=== PATIENT | male | born 1990 | race African-American/Black ===

== ENCOUNTER 2016-06-02 00:20 | Inpatient (IN) ==
[2016-06-02] MEDS ORDERED: 0.9 % Sodium Chloride 1,000 ML IVC ONE ×3 (01:12→07:26)
[2016-06-02] MEDS ORDERED: *HR* HYDROmorphone (PF) 1 MG/ML SYRINGE IVP ONE ×2 (01:12→20:37)
[2016-06-02] MEDS ORDERED: Ondansetron 4 MG/2 ML VIAL IVP ONE ×3 (01:12→06:18)
[2016-06-02] MEDS ORDERED: Ketorolac 30 MG/ML VIAL IVP ONE (01:12)
--- NOTE | 2016-06-02 01:17 | Emergency Department Note ---
Disposition Clinical Impression: Intractable nausea and vomiting Qualifiers: Vomiting type: unspecified Qualified Code(s): R11.2 - Nausea with vomiting, unspecified Abdominal pain Qualifiers: Abdominal location: left lower quadrant Qualified Code(s): R10.32 - Left lower quadrant pain Disposition: Still a Patient Condition: Fair Referrals: NO,PCP [Primary Care Provider] - Forms: Work/School Release, ED Satisfaction Letter Time of Disposition: 07:04 Abdominal Pain HPI - General Chief Complaint: ED Abdominal Pain Stated Complaint: Abdominal Pain Time Seen by Provider: 06/02/16 01:08 Source: patient, EMS Mode of arrival: ambulatory Limitations: no limitations Nursing Notes Reviewed: Yes Vital Signs Reviewed: Yes - History of Present Illness HPI Narrative: Patient is a 25-year-old male who presents to [facility] ED with a chief complaint of left lower quadrant abdominal pain that radiates into his back. Onset was 2 days ago. Has had nausea, vomiting, chills. States he has difficulty with urinating. Denies any prior history of kidney stones. No other medical problems. Denies any chest pain, difficulty breathing. Pt Subjective Complaint: abdominal pain, flank pain Onset (ago): day(s) Consistency: constant Location: LUQ, L flank Pain Severity: severe Pain Scale: 10 Quality: stabbing, sharp Radiation: none Migration to: no migration Improves with: nothing Worsens with: nothing Associated symptoms: Reports: nausea, vomiting, chills. Denies: fever Treatments prior to arrival: none - Related Data Home Medications Medication Instructions Recorded Confirmed Aspirin 325 mg PO DAILY PRN 06/02/16 06/02/16 Allergies Allergy/AdvReac Type Severity Reaction Status Date / Time latex Allergy Anaphylaxis Verified 06/02/16 06:36 Penicillins [PCN] Allergy See Verified 06/02/16 06:36 Comments All systems ED: reviewed and negative except as stated. Abdominal Pain PMH - Past Medical History Medical history: Reports: CHF, CVA, myocardial infarction, renal disease, TIA Male Surgical History: Reports: other Psychiatric history: Reports: anxiety, bipolar, depression, schizophrenia - Social History Smoking status: Current every day smoker Alcohol use: Reports: occasionally Drug use: Reports: marijuana Physical Exam - General Limitations: no limitations General appearance: alert - Head Head exam: atraumatic, normocephalic, normal inspection - Eye Eye exam: Present: normal appearance, PERRL, EOMI - ENT ENT exam: normal exam, normal oropharynx, mucous membranes moist - Neck Neck exam: Present: normal inspection, full ROM, trachea midline - Chest Chest inspection: Present: normal inspection, symmetric chest wall rise - Respiratory Respiratory exam: Present: normal lung sounds bilaterally - Cardiovascular Cardiovascular exam: Present: normal rhythm, tachycardia - Abdominal Exam Abdominal exam: Present: soft, tenderness, normal bowel sounds Abdominal tenderness: Present: LLQ, diffuse, severe - Extremities Exam Extremities exam: Present: normal inspection, full ROM. Absent: tenderness, pedal edema - Back Exam Back exam: Present: CVA tenderness (L) - Neurological Exam Neurological exam: Present: alert - Psychiatric Psychiatric exam: Present: normal affect, normal mood - Skin Skin exam: Present: warm, dry, intact, normal color Course Course Narrative: Patient seen and examined. Left-sided abdominal pain that radiates into the flank. Suspect possible kidney stone. Labs, CT abdomen and pelvis ordered. IV placed for 1 L fluids and IV Toradol for pain, Zofran for nausea. - Reevaluation(s) Reevaluation #1: Patient has repeatedly required multiple doses of nausea medication. We have tried Zofran, Reglan, Phenergan. I have now also ordered a second dose of Zofran. Patient still has been dry heaving. His lab work shows that he is dehydrated. Patient has received 2 L boluses of fluids. I believe patient likely has a viral illness. Due to his persistent nausea with vomiting, will admit to hospitalist service for intractable nausea and vomiting. Time: 05:59 Reevaluation #2: Still awaiting hospitalist to call back. Patient will be signed out to the day team for admission for dehydration, intractable nausea with vomiting. Time: 06:53 Vital Signs Temperature 98.6 F 06/02/16 00:23 Pulse Rate 85 06/02/16 00:23 Respiratory Rate 20 06/02/16 00:23 Blood Pressure 129/107 06/02/16 00:23 O2 Sat by Pulse Oximetry 100 06/02/16 00:23 Temperature 98.6 F 06/02/16 00:23 Pulse Rate 104 06/02/16 05:50 Respiratory Rate 16 06/02/16 05:50 Blood Pressure 122/77 06/02/16 05:50 O2 Sat by Pulse Oximetry 100 06/02/16 05:50 Oxygen Delivery Oxygen Delivery Room Air Abdominal Pain - Medical Records Medical records reviewed: Yes I reviewed the patient's medical records. - Lab Data Lab results reviewed: Yes I reviewed the patient's lab results. Result diagrams: 06/02/16 01:50 06/02/16 01:50 Lab Results 06/02/16 06/02/16 06/02/16 Range/Units 01:50 01:50 02:46 WBC 12.8 H (4.3-11.1) K/mcL RBC 4.81 (4.19-5.50) M/mcL Hgb 13.7 (12.9-16.9) g/dL Hct 40.9 (37.5-50.1) % MCV 85.0 (83.0-100.0) fL MCH 28.5 (28.0-33.3) pg MCHC 33.5 (31.6-35.5) g/dL RDW 12.2 (11.5-14.5) % Plt Count 337 (140-400) K/mcL MPV 9.5 (9.4-12.4) fL Immature Gran % 0.3 (0-4) % Seg Neutrophils % 79.6 % Lymphocytes % 14.4 % Monocytes % 5.1 % Eosinophils % 0.3 % Basophils % 0.3 % Neutrophils # 10.2 H (1.6-8.9) K/mcL Lymphocytes # 1.8 (0.6-4.6) K/mcL Monocytes # 0.7 (0.0-1.3) K/mcL Eosinophils # 0.0 (0.0-0.6) K/mcL Basophils # 0.0 (0.0-0.2) K/mcL Sodium 138 (136-145) mEq/L Potassium 3.9 (3.5-4.5) mEq/L Chloride 105 (98-109) mEq/L Carbon Dioxide 17 L (19-29) mEq/L BUN 11 (8-26) mg/dL Creatinine 1.57 H (0.72-1.25) mg/dL Est GFR ( Amer) > 60 (> 60) Est GFR (Non-Af Amer) 54 L (> 60) BUN/Creatinine Ratio 7 (6-26) Glucose 133 H (70-99) mg/dL Calculated Osmolality 287 (280-300) Lactic Acid 1.9 (0.5-2.2) mmol/L Calcium 10.0 (8.6-10.8) mg/dL Total Bilirubin 2.1 H (0.2-1.2) mg/dL Direct Bilirubin 0.6 H (0.0-0.5) mg/dL Indirect Bilirubin 1.5 H (0.0-1.2) mg/dL AST 29 (5-34) Units/L ALT 20 (0-55) Units/L Alkaline Phosphatase 94 (38-126) Units/L Serum Total Protein 7.8 (6.0-8.3) g/dL Albumin 4.8 (3.5-5.0) g/dL Globulin 3.0 (2.4-3.5) g/dL Albumin/Globulin Ratio 1.6 (1.1-2.2) Lipase 14 (8-78) Units/L Urine Color (Yellow) Urine Clarity (Clear) Urine pH (5.0-8.0) pH Units Ur Specific [place] (1.010-1.025) Urine Protein (Neg-Trace) mg/dL Urine Glucose (UA) (Normal) mg/dL Urine Ketones (Negative) mg/dL Urine Blood (Negative) Urine Nitrite (Negative) Urine Bilirubin (Negative) Urine Urobilinogen (Normal) mg/dL Ur Leukocyte Esterase (Negative) Urine Microscopic RBC (0-3) per hpf Urine Microscopic WBC (0-3) per hpf Ur Squamous Epith Cells (None-Few) per lpf Urine Bacteria (None-Few) per hpf Hyaline Casts (None-Few) per lpf Ur Culture Indicated? (NO) 06/02/16 Range/Units 03:35 WBC (4.3-11.1) K/mcL RBC (4.19-5.50) M/mcL Hgb (12.9-16.9) g/dL Hct (37.5-50.1) % MCV (83.0-100.0) fL MCH (28.0-33.3) pg MCHC (31.6-35.5) g/dL RDW (11.5-14.5) % Plt Count (140-400) K/mcL MPV (9.4-12.4) fL Immature Gran % (0-4) % Seg Neutrophils % % Lymphocytes % % Monocytes % % Eosinophils % % Basophils % % Neutrophils # (1.6-8.9) K/mcL Lymphocytes # (0.6-4.6) K/mcL Monocytes # (0.0-1.3) K/mcL Eosinophils # (0.0-0.6) K/mcL Basophils # (0.0-0.2) K/mcL Sodium (136-145) mEq/L Potassium (3.5-4.5) mEq/L Chloride (98-109) mEq/L Carbon Dioxide (19-29) mEq/L BUN (8-26) mg/dL Creatinine (0.72-1.25) mg/dL Est GFR ( Amer) (> 60) Est GFR (Non-Af Amer) (> 60) BUN/Creatinine Ratio (6-26) Glucose (70-99) mg/dL Calculated Osmolality (280-300) Lactic Acid (0.5-2.2) mmol/L Calcium (8.6-10.8) mg/dL Total Bilirubin (0.2-1.2) mg/dL Direct Bilirubin (0.0-0.5) mg/dL Indirect Bilirubin (0.0-1.2) mg/dL AST (5-34) Units/L ALT (0-55) Units/L Alkaline Phosphatase (38-126) Units/L Serum Total Protein (6.0-8.3) g/dL Albumin (3.5-5.0) g/dL Globulin (2.4-3.5) g/dL Albumin/Globulin Ratio (1.1-2.2) Lipase (8-78) Units/L Urine Color Yellow (Yellow) Urine Clarity Cloudy A (Clear) Urine pH 8.0 (5.0-8.0) pH Units Ur Specific [place] 1.023 (1.010-1.025) Urine Protein Trace (Neg-Trace) mg/dL Urine Glucose (UA) Normal (Normal) mg/dL Urine Ketones 80 H (Negative) mg/dL Urine Blood Negative (Negative) Urine Nitrite Negative (Negative) Urine Bilirubin Negative (Negative) Urine Urobilinogen Normal (Normal) mg/dL Ur Leukocyte Esterase Moderate H (Negative) Urine Microscopic RBC 0-3 (0-3) per hpf Urine Microscopic WBC 30-50 H (0-3) per hpf Ur Squamous Epith Cells Many H (None-Few) per lpf Urine Bacteria None Seen (None-Few) per hpf Hyaline Casts None Seen (None-Few) per lpf Ur Culture Indicated? YES A (NO) - Radiology Data Radiology results reviewed: Yes I reviewed the patient's radiology results. Abdomen/Pelvis CT 06/02/16 01:12 IMPRESSION: 1. No acute intra-abdominal abnormality. 2. No acute intrapelvic abnormality. 3. No urinary tract calcifications seen. D/ / Owen Gordon MD / Owen Gordon MD Interpreting Provider: Owen Gordon MD - EKG Data EKG attestation: Yes I reviewed and interpreted this EKG. EKG results narrative: EKG done at 00 42 shows normal sinus rhythm with a rate of [address] elevation or depression. Normal axis. No prior EKG for comparison. Attestation Statement - Attestation Attestation: I, Luis Antonio Adams MD, personally performed a history and physical exam of the patient and discussed their management with the resident. I reviewed the resident's note and agree with the documented findings, medical decision making , and plan of care. 25-year-old male presents to the emergency department with a complaint of left lower abdominal pain and left flank pain for 2 days prior to arrival. Pain became acutely more severe this evening. Presents with nausea and vomiting. No fever. No hematuria or dysuria. No history kidney stones. On examination patient is a well-developed well-nourished well-appearing black male in no acute distress but appears to be in moderate discomfort. He is alert and oriented 3. No diaphoresis. Breath sounds are clear and equal bilaterally. Heart regular rate and rhythm. Bowel sounds are normal but otherwise unable to examine abdomen. When I attempted to examine patient's abdomen he kept grabbing my hand and pushing me away. I attempted holding patient's wrist while I examined his abdomen so that he would not push my hand away and he started yelling and called me a ""mother fucker" and told me not to touch him. I did not attempt any further exam and left the room. Labs reviewed and unremarkable. CT scan of the abdomen and pelvis was obtained and showed no acute intra-abdominal abnormality, no acute intrapelvic abnormality, no urinary tract calcifications seen. Patient has continued to have intractable vomiting after multiple antiemetics including Zofran, Reglan, and Phenergan. Decision made to admit however the hospitalist has been extremely busy and has not returned pages. At shift change the patient is being signed out to the oncoming day team, Dr. Galdamez and Dr. Griggs.
[2016-06-02 02:06] LABS: Basophils % 0.3 %; Eosinophils % 0.3 %; Hematocrit 40.9 % (37.5-50.1); Hemoglobin 13.7 g/dL (12.9-16.9); Immature Granulocytes % 0.3 % (0-4); Lymphocytes # 1.8 K/mcL (0.6-4.6); Lymphocytes % 14.4 %; Mean Corpuscular HGB Conc 33.5 g/dL (31.6-35.5); Mean Corpuscular Hemoglobin 28.5 pg (28.0-33.3); Mean Platelet Volume 9.5 fL (9.4-12.4); Monocytes # 0.7 K/mcL (0.0-1.3); Monocytes % 5.1 %; Neutrophils # 10.2 K/mcL (1.6-8.9); Platelet Count 337 K/mcL (140-400); Red Blood Count 4.81 M/mcL (4.19-5.50); Red Cell Distribution Width 12.2 % (11.5-14.5); Segmented Neutrophils % 79.6 %
[2016-06-02 02:26] LABS: Alanine Aminotransferase 20 Units/L (0-55); Albumin 4.8 g/dL (3.5-5.0); Albumin/Globulin Ratio 1.6 (1.1-2.2); Alkaline Phosphatase 94 Units/L (38-126); Aspartate Amino Transferase 29 Units/L (5-34); BUN/Creatinine Ratio 7 (6-26); Bilirubin,Direct 0.6 mg/dL (0.0-0.5); Bilirubin,Indirect 1.5 mg/dL (0.0-1.2); Bilirubin,Total 2.1 mg/dL (0.2-1.2); Blood Urea Nitrogen 11 mg/dL (8-26); Carbon Dioxide 17 mEq/L (19-29); Chloride 105 mEq/L (98-109); Glucose 133 mg/dL (70-99); Lipase 14 Units/L (8-78); Osmolality,Calculated 287 (280-300); Potassium 3.9 mEq/L (3.5-4.5); Sodium 138 mEq/L (136-145); Total Protein 7.8 g/dL (6.0-8.3); eGFR For African Americans > 60 (> 60); eGFR For Non-African Americans 54 (> 60)
[2016-06-02 03:43] LABS: Bilirubin,Urine Negative (Negative); Blood,Urine Negative (Negative); Clarity,Urine Cloudy (Clear); Color,Urine Yellow (Yellow); Glucose,Urine (UA) Normal (Normal); Ketones,Urine 80 mg/dL (Negative); Leukocyte Esterase,Urine Moderate (Negative); Nitrite,Urine Negative (Negative); Protein,Urine Trace mg/dL (Neg-Trace); Specific Gravity,Urine 1.023 (1.010-1.025); Urobilinogen,Urine Normal (Normal)
[2016-06-02 03:44] LABS: Bacteria,Urine None Seen per hpf (None-Few); Hyaline Casts,Urine None Seen per lpf (None-Few); RBC,Urine 0-3 per hpf (0-3); Squamous Epithelial Cell,Urine Many per lpf (None-Few); WBC,Urine 30-50 per hpf (0-3)
[2016-06-02] MEDS ORDERED: Metoclopramide 10 MG/2 ML VIAL IVP ONE (04:05)
[2016-06-02] MEDS ORDERED: *HR* Promethazine 25 MG/ML VIAL IVP ONE (05:01)
--- NOTE | 2016-06-02 07:20 | Emergency Department Note ---
Disposition Clinical Impression: Intractable nausea and vomiting Qualifiers: Vomiting type: unspecified Qualified Code(s): R11.2 - Nausea with vomiting, unspecified Abdominal pain Qualifiers: Abdominal location: left lower quadrant Qualified Code(s): R10.32 - Left lower quadrant pain Disposition: Still a Patient Condition: Fair Referrals: NO,PCP [Primary Care Provider] - Forms: ED Satisfaction Letter, Work/School Release General Adult HPI - General Chief complaint: ED Abdominal Pain Stated complaint: Abdominal Pain Time Seen by Provider: 06/02/16 01:08 Source: patient, EMS Mode of arrival: ambulatory Limitations: no limitations - History of Present Illness Pain Scale: 10 - Related Data Home Medications Medication Instructions Recorded Confirmed Aspirin 325 mg PO DAILY PRN 06/02/16 06/02/16 Allergies Allergy/AdvReac Type Severity Reaction Status Date / Time latex Allergy Anaphylaxis Verified 06/02/16 06:36 Penicillins [PCN] Allergy See Verified 06/02/16 06:36 Comments Past Medical History - Past Medical History Medical history: Reports: CHF, CVA, myocardial infarction, renal disease, TIA Psychiatric history: Reports: anxiety, bipolar, depression, schizophrenia - Social History Smoking Status: Current every day smoker Smokeless Tobacco Status: No Alcohol use: Reports: occasionally Drug use: Reports: marijuana Physical Exam - General Limitations: no limitations General appearance: alert Course Vital Signs Temperature 98.6 F 06/02/16 00:23 Pulse Rate 85 06/02/16 00:23 Respiratory Rate 20 06/02/16 00:23 Blood Pressure 129/107 06/02/16 00:23 O2 Sat by Pulse Oximetry 100 06/02/16 00:23 Temperature 98.6 F 06/02/16 00:23 Pulse Rate 104 06/02/16 05:50 Respiratory Rate 16 06/02/16 05:50 Blood Pressure 122/77 06/02/16 05:50 O2 Sat by Pulse Oximetry 100 06/02/16 05:50 Oxygen Delivery Oxygen Delivery Room Air Medical Decision Making - Lab Data Result diagrams: 06/02/16 01:50 06/02/16 01:50 Lab Results 06/02/16 06/02/16 06/02/16 Range/Units 01:50 01:50 02:46 WBC 12.8 H (4.3-11.1) K/mcL RBC 4.81 (4.19-5.50) M/mcL Hgb 13.7 (12.9-16.9) g/dL Hct 40.9 (37.5-50.1) % MCV 85.0 (83.0-100.0) fL MCH 28.5 (28.0-33.3) pg MCHC 33.5 (31.6-35.5) g/dL RDW 12.2 (11.5-14.5) % Plt Count 337 (140-400) K/mcL MPV 9.5 (9.4-12.4) fL Immature Gran % 0.3 (0-4) % Seg Neutrophils % 79.6 % Lymphocytes % 14.4 % Monocytes % 5.1 % Eosinophils % 0.3 % Basophils % 0.3 % Neutrophils # 10.2 H (1.6-8.9) K/mcL Lymphocytes # 1.8 (0.6-4.6) K/mcL Monocytes # 0.7 (0.0-1.3) K/mcL Eosinophils # 0.0 (0.0-0.6) K/mcL Basophils # 0.0 (0.0-0.2) K/mcL Sodium 138 (136-145) mEq/L Potassium 3.9 (3.5-4.5) mEq/L Chloride 105 (98-109) mEq/L Carbon Dioxide 17 L (19-29) mEq/L BUN 11 (8-26) mg/dL Creatinine 1.57 H (0.72-1.25) mg/dL Est GFR ( Amer) > 60 (> 60) Est GFR (Non-Af Amer) 54 L (> 60) BUN/Creatinine Ratio 7 (6-26) Glucose 133 H (70-99) mg/dL Calculated Osmolality 287 (280-300) Lactic Acid 1.9 (0.5-2.2) mmol/L Calcium 10.0 (8.6-10.8) mg/dL Total Bilirubin 2.1 H (0.2-1.2) mg/dL Direct Bilirubin 0.6 H (0.0-0.5) mg/dL Indirect Bilirubin 1.5 H (0.0-1.2) mg/dL AST 29 (5-34) Units/L ALT 20 (0-55) Units/L Alkaline Phosphatase 94 (38-126) Units/L Serum Total Protein 7.8 (6.0-8.3) g/dL Albumin 4.8 (3.5-5.0) g/dL Globulin 3.0 (2.4-3.5) g/dL Albumin/Globulin Ratio 1.6 (1.1-2.2) Lipase 14 (8-78) Units/L Urine Color (Yellow) Urine Clarity (Clear) Urine pH (5.0-8.0) pH Units Ur Specific [place] (1.010-1.025) Urine Protein (Neg-Trace) mg/dL Urine Glucose (UA) (Normal) mg/dL Urine Ketones (Negative) mg/dL Urine Blood (Negative) Urine Nitrite (Negative) Urine Bilirubin (Negative) Urine Urobilinogen (Normal) mg/dL Ur Leukocyte Esterase (Negative) Urine Microscopic RBC (0-3) per hpf Urine Microscopic WBC (0-3) per hpf Ur Squamous Epith Cells (None-Few) per lpf Urine Bacteria (None-Few) per hpf Hyaline Casts (None-Few) per lpf Ur Culture Indicated? (NO) 06/02/16 Range/Units 03:35 WBC (4.3-11.1) K/mcL RBC (4.19-5.50) M/mcL Hgb (12.9-16.9) g/dL Hct (37.5-50.1) % MCV (83.0-100.0) fL MCH (28.0-33.3) pg MCHC (31.6-35.5) g/dL RDW (11.5-14.5) % Plt Count (140-400) K/mcL MPV (9.4-12.4) fL Immature Gran % (0-4) % Seg Neutrophils % % Lymphocytes % % Monocytes % % Eosinophils % % Basophils % % Neutrophils # (1.6-8.9) K/mcL Lymphocytes # (0.6-4.6) K/mcL Monocytes # (0.0-1.3) K/mcL Eosinophils # (0.0-0.6) K/mcL Basophils # (0.0-0.2) K/mcL Sodium (136-145) mEq/L Potassium (3.5-4.5) mEq/L Chloride (98-109) mEq/L Carbon Dioxide (19-29) mEq/L BUN (8-26) mg/dL Creatinine (0.72-1.25) mg/dL Est GFR ( Amer) (> 60) Est GFR (Non-Af Amer) (> 60) BUN/Creatinine Ratio (6-26) Glucose (70-99) mg/dL Calculated Osmolality (280-300) Lactic Acid (0.5-2.2) mmol/L Calcium (8.6-10.8) mg/dL Total Bilirubin (0.2-1.2) mg/dL Direct Bilirubin (0.0-0.5) mg/dL Indirect Bilirubin (0.0-1.2) mg/dL AST (5-34) Units/L ALT (0-55) Units/L Alkaline Phosphatase (38-126) Units/L Serum Total Protein (6.0-8.3) g/dL Albumin (3.5-5.0) g/dL Globulin (2.4-3.5) g/dL Albumin/Globulin Ratio (1.1-2.2) Lipase (8-78) Units/L Urine Color Yellow (Yellow) Urine Clarity Cloudy A (Clear) Urine pH 8.0 (5.0-8.0) pH Units Ur Specific [place] 1.023 (1.010-1.025) Urine Protein Trace (Neg-Trace) mg/dL Urine Glucose (UA) Normal (Normal) mg/dL Urine Ketones 80 H (Negative) mg/dL Urine Blood Negative (Negative) Urine Nitrite Negative (Negative) Urine Bilirubin Negative (Negative) Urine Urobilinogen Normal (Normal) mg/dL Ur Leukocyte Esterase Moderate H (Negative) Urine Microscopic RBC 0-3 (0-3) per hpf Urine Microscopic WBC 30-50 H (0-3) per hpf Ur Squamous Epith Cells Many H (None-Few) per lpf Urine Bacteria None Seen (None-Few) per hpf Hyaline Casts None Seen (None-Few) per lpf Ur Culture Indicated? YES A (NO) Attestation Statement - Attestation Attestation: I examined this patient and my medical decision-making was reviewed with the STRUCTURAL IRON WORKER/PA/Advanced Practice Nurse/Resident Physician. I agree with the documented findings, disposition and treatment plan as described except to the extent set forth below. [id number] time provided Care assumed from Dr. Adams pending admission to the medicine service. Patient presents with intractable nausea and vomiting. Labs reviewed by me showing a low bicarbonate, elevated urine ketones, mild leukocytosis, creatinine of 1.57. Our plan is to speak with the admitting hospitalist to arrange admission
--- NOTE | 2016-06-02 07:24 | Emergency Department Note ---
Disposition Clinical Impression: Dehydration, VIVIAN (acute kidney injury) Intractable nausea and vomiting Qualifiers: Vomiting type: unspecified Qualified Code(s): R11.2 - Nausea with vomiting, unspecified Abdominal pain Qualifiers: Abdominal location: left lower quadrant Qualified Code(s): R10.32 - Left lower quadrant pain Disposition: Admitted As Inpatient Condition: Fair Referrals: NO,PCP [Primary Care Provider] - Forms: ED Satisfaction Letter, Work/School Release Time of Disposition: 07:24 Abdominal Pain HPI - General Chief Complaint: ED Abdominal Pain Stated Complaint: Abdominal Pain Time Seen by Provider: 06/02/16 01:08 Source: patient, EMS Mode of arrival: ambulatory Limitations: no limitations Nursing Notes Reviewed: Yes Vital Signs Reviewed: Yes - History of Present Illness Pt Subjective Complaint: abdominal pain, flank pain Location: LUQ, L flank Pain Severity: severe Pain Scale: 10 Quality: stabbing, sharp Migration to: no migration Improves with: nothing Worsens with: nothing Associated symptoms: Reports: nausea, vomiting, chills. Denies: fever - Related Data Home Medications Medication Instructions Recorded Confirmed Aspirin 325 mg PO DAILY PRN 06/02/16 06/02/16 Allergies Allergy/AdvReac Type Severity Reaction Status Date / Time latex Allergy Anaphylaxis Verified 06/02/16 06:36 Penicillins [PCN] Allergy See Verified 06/02/16 06:36 Comments Abdominal Pain PMH - Past Medical History Medical history: Reports: CHF, CVA, myocardial infarction, renal disease, TIA Male Surgical History: Reports: other Psychiatric history: Reports: anxiety, bipolar, depression, schizophrenia - Social History Smoking status: Current every day smoker Alcohol use: Reports: occasionally Drug use: Reports: marijuana Physical Exam - General Limitations: no limitations General appearance: alert Course Course Narrative: This patient was a sign out from night team, Dr. Adams and Dr. Reid. 25-year- old male with intractable nausea and vomiting for the past 2-3 days, clinical dehydration, mild left lower quadrant pain. He has had multiple sick contacts with viral gastroenteritis. Vitals within normal limits. Clinically dehydrated. Labs show a KI, mild leukocytosis. CT of the abdomen and pelvis negative. Patient has been given 2 L normal saline, total doses of different antibiotics. He started having nausea and vomiting, abdominal pain. We will give him another liter of fluid, morphine 4 mg for additional pain control. Patient has been accepted for admission by Dr. Cooper. Vital Signs Temperature 98.6 F 06/02/16 00:23 Pulse Rate 85 06/02/16 00:23 Respiratory Rate 20 06/02/16 00:23 Blood Pressure 129/107 06/02/16 00:23 O2 Sat by Pulse Oximetry 100 06/02/16 00:23 Temperature 98.6 F 06/02/16 00:23 Pulse Rate 104 06/02/16 05:50 Respiratory Rate 16 06/02/16 05:50 Blood Pressure 122/77 06/02/16 05:50 O2 Sat by Pulse Oximetry 100 06/02/16 05:50 Oxygen Delivery Oxygen Delivery Room Air Abdominal Pain - MDM Narrative Medical decision making narrative: This patient was a sign out from night team, Dr. Adams and Dr. Reid. 25-year- old male with intractable nausea and vomiting for the past 2-3 days, clinical dehydration, mild left lower quadrant pain. He has had multiple sick contacts with viral gastroenteritis. Vitals within normal limits. Clinically dehydrated. Labs show a KI, mild leukocytosis. CT of the abdomen and pelvis negative. Patient has been given 2 L normal saline, total doses of different antibiotics. He started having nausea and vomiting, abdominal pain. We will give him another liter of fluid, morphine 4 mg for additional pain control. Patient has been accepted for admission by Dr. Cooper. - Medical Records Medical records reviewed: Yes I reviewed the patient's medical records. - Lab Data Lab results reviewed: Yes I reviewed the patient's lab results. Result diagrams: 06/02/16 01:50 06/02/16 01:50 Lab Results 06/02/16 06/02/16 06/02/16 Range/Units 01:50 01:50 02:46 WBC 12.8 H (4.3-11.1) K/mcL RBC 4.81 (4.19-5.50) M/mcL Hgb 13.7 (12.9-16.9) g/dL Hct 40.9 (37.5-50.1) % MCV 85.0 (83.0-100.0) fL MCH 28.5 (28.0-33.3) pg MCHC 33.5 (31.6-35.5) g/dL RDW 12.2 (11.5-14.5) % Plt Count 337 (140-400) K/mcL MPV 9.5 (9.4-12.4) fL Immature Gran % 0.3 (0-4) % Seg Neutrophils % 79.6 % Lymphocytes % 14.4 % Monocytes % 5.1 % Eosinophils % 0.3 % Basophils % 0.3 % Neutrophils # 10.2 H (1.6-8.9) K/mcL Lymphocytes # 1.8 (0.6-4.6) K/mcL Monocytes # 0.7 (0.0-1.3) K/mcL Eosinophils # 0.0 (0.0-0.6) K/mcL Basophils # 0.0 (0.0-0.2) K/mcL Sodium 138 (136-145) mEq/L Potassium 3.9 (3.5-4.5) mEq/L Chloride 105 (98-109) mEq/L Carbon Dioxide 17 L (19-29) mEq/L BUN 11 (8-26) mg/dL Creatinine 1.57 H (0.72-1.25) mg/dL Est GFR ( Amer) > 60 (> 60) Est GFR (Non-Af Amer) 54 L (> 60) BUN/Creatinine Ratio 7 (6-26) Glucose 133 H (70-99) mg/dL Calculated Osmolality 287 (280-300) Lactic Acid 1.9 (0.5-2.2) mmol/L Calcium 10.0 (8.6-10.8) mg/dL Total Bilirubin 2.1 H (0.2-1.2) mg/dL Direct Bilirubin 0.6 H (0.0-0.5) mg/dL Indirect Bilirubin 1.5 H (0.0-1.2) mg/dL AST 29 (5-34) Units/L ALT 20 (0-55) Units/L Alkaline Phosphatase 94 (38-126) Units/L Serum Total Protein 7.8 (6.0-8.3) g/dL Albumin 4.8 (3.5-5.0) g/dL Globulin 3.0 (2.4-3.5) g/dL Albumin/Globulin Ratio 1.6 (1.1-2.2) Lipase 14 (8-78) Units/L Urine Color (Yellow) Urine Clarity (Clear) Urine pH (5.0-8.0) pH Units Ur Specific [place] (1.010-1.025) Urine Protein (Neg-Trace) mg/dL Urine Glucose (UA) (Normal) mg/dL Urine Ketones (Negative) mg/dL Urine Blood (Negative) Urine Nitrite (Negative) Urine Bilirubin (Negative) Urine Urobilinogen (Normal) mg/dL Ur Leukocyte Esterase (Negative) Urine Microscopic RBC (0-3) per hpf Urine Microscopic WBC (0-3) per hpf Ur Squamous Epith Cells (None-Few) per lpf Urine Bacteria (None-Few) per hpf Hyaline Casts (None-Few) per lpf Ur Culture Indicated? (NO) 06/02/16 Range/Units 03:35 WBC (4.3-11.1) K/mcL RBC (4.19-5.50) M/mcL Hgb (12.9-16.9) g/dL Hct (37.5-50.1) % MCV (83.0-100.0) fL MCH (28.0-33.3) pg MCHC (31.6-35.5) g/dL RDW (11.5-14.5) % Plt Count (140-400) K/mcL MPV (9.4-12.4) fL Immature Gran % (0-4) % Seg Neutrophils % % Lymphocytes % % Monocytes % % Eosinophils % % Basophils % % Neutrophils # (1.6-8.9) K/mcL Lymphocytes # (0.6-4.6) K/mcL Monocytes # (0.0-1.3) K/mcL Eosinophils # (0.0-0.6) K/mcL Basophils # (0.0-0.2) K/mcL Sodium (136-145) mEq/L Potassium (3.5-4.5) mEq/L Chloride (98-109) mEq/L Carbon Dioxide (19-29) mEq/L BUN (8-26) mg/dL Creatinine (0.72-1.25) mg/dL Est GFR ( Amer) (> 60) Est GFR (Non-Af Amer) (> 60) BUN/Creatinine Ratio (6-26) Glucose (70-99) mg/dL Calculated Osmolality (280-300) Lactic Acid (0.5-2.2) mmol/L Calcium (8.6-10.8) mg/dL Total Bilirubin (0.2-1.2) mg/dL Direct Bilirubin (0.0-0.5) mg/dL Indirect Bilirubin (0.0-1.2) mg/dL AST (5-34) Units/L ALT (0-55) Units/L Alkaline Phosphatase (38-126) Units/L Serum Total Protein (6.0-8.3) g/dL Albumin (3.5-5.0) g/dL Globulin (2.4-3.5) g/dL Albumin/Globulin Ratio (1.1-2.2) Lipase (8-78) Units/L Urine Color Yellow (Yellow) Urine Clarity Cloudy A (Clear) Urine pH 8.0 (5.0-8.0) pH Units Ur Specific [place] 1.023 (1.010-1.025) Urine Protein Trace (Neg-Trace) mg/dL Urine Glucose (UA) Normal (Normal) mg/dL Urine Ketones 80 H (Negative) mg/dL Urine Blood Negative (Negative) Urine Nitrite Negative (Negative) Urine Bilirubin Negative (Negative) Urine Urobilinogen Normal (Normal) mg/dL Ur Leukocyte Esterase Moderate H (Negative) Urine Microscopic RBC 0-3 (0-3) per hpf Urine Microscopic WBC 30-50 H (0-3) per hpf Ur Squamous Epith Cells Many H (None-Few) per lpf Urine Bacteria None Seen (None-Few) per hpf Hyaline Casts None Seen (None-Few) per lpf Ur Culture Indicated? YES A (NO) - Radiology Data Radiology results reviewed: Yes I reviewed the patient's radiology results. Abdomen/Pelvis CT 06/02/16 01:12 IMPRESSION: 1. No acute intra-abdominal abnormality. 2. No acute intrapelvic abnormality. 3. No urinary tract calcifications seen. D/ / Owen Gordon MD / Owen Gordon MD Interpreting Provider: Owen Gordon MD S.B.A.R. - S.B.A.R. Situation: Demographics, MOA Background: Presenting Complaint, Relevant PMH, Meds, & Allergies Assessment: Vital Signs, Course and respsone to treatment, Exam Concerns, Patient/Family Expectation, Pertinant Lab Results, Outstanding Labs Recommendation: Barrier(s) to disposition, Recommendation based on pending studies, treatments, or consults Carlos Report Given to: Dr. Kenneth Gonzalez Repor Time: 07:24
[2016-06-02] MEDS ORDERED: *HR* Morphine 2 MG/ML SYRINGE IVP ONE (07:26)
[2016-06-02] MEDS ORDERED: Aspirin 325 MG TABLET PO PRN (08:14)
--- NOTE | 2016-06-02 08:17 | Internal Med History&Physical ---
Date of Encounter: 06/02/16 Time of Encounter: 08:14 Assessment and Plan (1) Acute pyelonephritis Current visit: Yes Status: Acute I will start the patient on levofloxacin 750 mg IV daily urine closer will be performed. Hydration. CT scan shows no comment Re: obstructive uropathy. No visible kidney stone. Await urine and blood culture. (2) Intractable nausea and vomiting Current visit: Yes Status: Acute Due to urinary tract infection. He denies any diarrhea. Symptomatic treatment Qualifiers: Vomiting type: unspecified Qualified Code(s): R11.2 - Nausea with vomiting , unspecified (3) VIVIAN (acute kidney injury) Current visit: Yes Status: Acute Due to dehydration. He received 3 L of fluid in the emergency room continual normal saline hydration 125 mL per hour. Bilirubin is also elevated due to dehydration. Internal Medicine - H&P: HPI Chief complaint: left flank pain and vomitin History of present illness: Mr. James is a 25 year old male with history of spina bifida and prior kidney injury a year ago without clear details presented to the emergency room today with the main complaint of abdominal pain and vomiting. For the past 2 days the patient has been complaining of left sided abdominal pain as well as left loin pain, intractable vomiting, fevers and chills. He is been unable to keep any food down. He denies any prior history of kidney stones but he did have prior urinary tract infections. Urine analysis of the emergency room was suggestive of urinary tract infection. He denies any diarrhea. He denies any IV drug use. Past Med Surg Social Fam HX - Past Medical History Medical history: CHF, CVA, myocardial infarction, renal disease, TIA Psychiatric history: anxiety, bipolar, depression, schizophrenia - Social History Smoking Status: Current every day smoker Smokeless Tobacco Status: No Alcohol use: occasionally Drug use: marijuana Internal Medicine - H&P: Meds Aspirin 325 mg PO DAILY PRN 06/02/16 [History] Allergies latex Allergy (Verified 06/02/16 06:36) Anaphylaxis Penicillins [PCN] Allergy (Verified 06/02/16 06:36) See Comments All Systems PM: A 10-system review of systems was performed and is negative for pertinent findings except as documented above in the HPI. Review of systems: Ten point review of systems is negative except for HPI - Constitutional Vitals: Temp Pulse Resp BP Pulse Ox 98.6 F 92 16 136/92 100 06/02/16 00:23 06/02/16 07:22 06/02/16 05:50 06/02/16 07:22 06/02/16 07:22 Exam: Gen.: patient is alert oriented not in distress. Cardiac: Normal S1 S2 no additional sounds or murmurs chest: clear to auscultation lower extremity: lax calf muscles neuro no focal deficit Back: Left CVA tenderness Abdomen: Left lower quad tenderness Internal Med - H&P Results - Labs CBC & Chem 7: 06/02/16 01:50 06/02/16 01:50
[2016-06-02] MEDS: Levofloxacin 750 MG/150 ML 750 MG/150 ML BAG IVPB SCH (11:17)
[2016-06-02] MEDS: 0.9 % Sodium Chloride 1,000 ML IVC SCH ×2 (11:18→20:06)
[2016-06-02] MEDS: *HR* Morphine 2 MG/ML SYRINGE IVP PRN ×3 (11:18→20:05)
[2016-06-02] MEDS: *HR* Heparin 5,000 UNIT/ML VIAL SQ SCH (18:51)
[2016-06-02] MEDS: Famotidine 20 MG/2 ML VIAL IVP SCH (18:52)
[2016-06-02] MEDS: Ondansetron 4 MG/2 ML VIAL IVP PRN (20:10)
[2016-06-02] MEDS ORDERED: Promethazine 25 MG in 0.9 % Sodium Chloride 50 ML IVPB STA (20:40)
[2016-06-03] MEDS: *HR* HYDROmorphone (PF) 1 MG/ML SYRINGE IVP PRN ×6 (01:20→23:20)
[2016-06-03] MEDS: Ketorolac 30 MG/ML VIAL IVP PRN ×2 (03:42→13:36)
[2016-06-03] MEDS: 0.9 % Sodium Chloride 1,000 ML IVC SCH ×5 (03:43→21:16)
[2016-06-03 04:27] LABS: Basophils % 0.2 %; Eosinophils # 0.1 K/mcL (0.0-0.6); Eosinophils % 0.5 %; Hematocrit 37.2 % (37.5-50.1); Immature Granulocytes % 0.3 % (0-4); Lymphocytes # 2.2 K/mcL (0.6-4.6); Lymphocytes % 17.4 %; Mean Corpuscular HGB Conc 32.5 g/dL (31.6-35.5); Mean Corpuscular Hemoglobin 28.3 pg (28.0-33.3); Mean Corpuscular Volume 87.1 fL (83.0-100.0); Monocytes % 7.5 %; Neutrophils # 9.5 K/mcL (1.6-8.9); Platelet Count 267 K/mcL (140-400); Red Blood Count 4.27 M/mcL (4.19-5.50); Red Cell Distribution Width 12.3 % (11.5-14.5); Segmented Neutrophils % 74.1 %
[2016-06-03 04:29] LABS: Hemoglobin 12.1 g/dL (12.9-16.9)
[2016-06-03 04:43] LABS: BUN/Creatinine Ratio 4 (6-26); Blood Urea Nitrogen 6 mg/dL (8-26); C-Reactive Protein 132 mg/L (Less than 5); Carbon Dioxide 27 mEq/L (19-29); Chloride 107 mEq/L (98-109); Glucose 114 mg/dL (70-99); Osmolality,Calculated 284 (280-300); Potassium 3.9 mEq/L (3.5-4.5); Sodium 138 mEq/L (136-145); eGFR For African Americans > 60 (> 60); eGFR For Non-African Americans > 60 (> 60)
[2016-06-03 04:51] LABS: Albumin/Globulin Ratio 1.3 (1.1-2.2); Bilirubin,Direct 0.5 mg/dL (0.0-0.5); Bilirubin,Indirect 1.8 mg/dL (0.0-1.2); Bilirubin,Total 2.3 mg/dL (0.2-1.2); Globulin 2.7 g/dL (2.4-3.5); Total Protein 6.3 g/dL (6.0-8.3)
[2016-06-03 04:56] LABS: Albumin 3.6 g/dL (3.5-5.0)
[2016-06-03] MEDS: Famotidine 20 MG/2 ML VIAL IVP SCH ×2 (05:46→17:08)
[2016-06-03] MEDS: *HR* Heparin 5,000 UNIT/ML VIAL SQ SCH ×3 (05:56→17:17)
--- NOTE | 2016-06-03 09:06 | Electrocardiograph Report ---
[place] [id number] Test Date: 2016-06-02 Pat Name: Rosalino James Department: 105 Room: 3B Gender: M [employer]: BERENICE : 1990 Requested By: Angelique Hernandez Order Number: [id number] Reading MD: Yung Rapp MD Measurements Intervals [place] Rate: 73 P: 64 NH: 102 QRS: 69 QRSD: 93 T: 48 QT: 377 QTc: 403 Interpretive Statements SINUS RHYTHM WITH SINUS ARRHYTHMIA WITH SHORT NH INTERVAL Electronically Signed On 06-03-2016 9:04:47 EDT by Yung Rapp MD
[2016-06-03] MEDS: Levofloxacin 750 MG/150 ML 750 MG/150 ML BAG IVPB SCH (09:45)
--- NOTE | 2016-06-03 10:40 | Internal Med Progress Note ---
<Elmo Vegas - Last Filed: 06/03/16 10:37> Date of Encounter: 06/03/16 Time of Encounter: 10:38 - Assessment and plan (1) Abdominal pain Current Visit: Yes Status: Acute Assessment and plan: Patient presented with nausea vomiting and diffuse abdominal pain with bilateral flank pain. Suspicious for pyelonephritis as patient has abdominal pain bilateral flank pain and urinary tract infection. - Urine culture demonstrates no pathogens isolated. - Lipase 14, WBC 12.8, Total Bili 2.3, CRP 132 -Cannot rule out other causes of diffuse abdominal pain including appendicitis. CT of the abdomen and pelvis impression no acute intra-abdominal abnormality. No acute intrapelvic abnormality. No urinary tract calcification seen. Plan: - Continue NPO - Continue IV fluids - If no improvement with current antibiotics may have to consider other causes of abdominal ain - Continue Bentyl for abd discomfort. - Use Toradol sparingly as patient has VIVIAN Qualifiers: Abdominal location: left lower quadrant Qualified Code(s): R10.32 - Left lower quadrant pain (2) Acute pyelonephritis Current Visit: Yes Status: Acute Assessment and plan: Suspicious for pyelonephritis as patient has abdominal pain bilateral flank pain and urinary tract infection. UC was without any growth. - No previous microbiology history for sensitivities. -Recurrent urinary tract infections with previous pyelonephritis. Contributing factor: spina bifida. Plan: Continue Levaquin 750 daily (3) VIVIAN (acute kidney injury) Current Visit: Yes Status: Acute Assessment and plan: Acute kidney injury likely secondary to dehydration with nausea and vomiting and poor by mouth intake. Also possible contribution from UTI. -Continue IV normal saline at 125 mL/hr - Monitor renal function and labs (4) Spina bifida Current Visit: Yes Status: Chronic Assessment and plan: Known history of spina bifida and sacral region. Likely contributing to recurrent urinary tract infections. Qualifiers: Qualified Code(s): Q05.9 - Spina bifida, unspecified - Subjective Interval history: Mr. James 25-year-old AA male with hx of spina bifida and recurrent UTIs has been seen and evaluated patient bedside this morning. He is alert awake and interactive. He complains of nausea and says that he has had a feeling of vomiting but has not vomited yet. He also complained of diffuse abdominal pain that he said started in his left sided mid abdomen and now involves diffuse abdominal pain with bilateral flank pain. He does not feel improved compared to yesterday. He denies these symptoms with his previous urinary tract infections which he said he has had roughly 10. - Constitutional Vitals: Temp Pulse Resp BP Pulse Ox 99.2 F 105 18 118/71 98 06/03/16 07:50 06/03/16 07:50 06/03/16 07:50 06/03/16 07:50 06/03/16 07:50 General appearance: Present: A&O X 3, pleasant, no acute distress - Head Head exam: Present: atraumatic, normocephalic - Eye Eye exam: Present: PERRL, conjuntiva pink, sclera anicteric Pupils: Present: PERRL - Neck Neck exam general surgery: Present: supple, trachea midline. Absent: lymphadenopathy - Respiratory Respiratory exam: Present: CTAB. Absent: accessory muscle use, rales, rhonchi, wheezes - Cardiovascular Cardiovascular exam: Present: +S1, +S2, tachycardia. Absent: diastolic murmur, gallop, rubs, systolic murmur - GI/Abdominal GI/Abdominal exam: Present: normal bowel sounds, soft, tenderness (Diffuse tenderness even to light palpation.), no peritoneal signs. Absent: distended - Extremities Exam Extremities exam: Present: normal capillary refill, warm, radial pulses palpable and symetrical. Absent: pedal edema, tenderness - Neurological Exam Neurological exam: Present: alert, oriented X3, no focal deficits. Absent: pronater drift, facial droop, speech deficit - Psychiatric Psychiatric exam: Present: normal affect, normal mood - Skin Skin exam: Present: dry, intact Internal Medicine: Result - Labs CBC & Chem 7: 06/03/16 04:12 06/03/16 04:12 Labs: Short CBC 06/03/16 Range/Units 04:12 WBC 12.8 H (4.3-11.1) K/mcL Hgb 12.1 L D (12.9-16.9) g/dL Hct 37.2 L (37.5-50.1) % Plt Count 267 (140-400) K/mcL Neutrophils # 9.5 H (1.6-8.9) K/mcL BMP 06/03/16 04:12 Sodium 138 Potassium 3.9 Chloride 107 Carbon Dioxide 27 BUN 6 L Creatinine 1.38 H Glucose 114 H Calcium 9.0 Liver Function 06/03/16 Range/Units 04:12 Total Bilirubin 2.3 H (0.2-1.2) mg/dL Direct Bilirubin 0.5 (0.0-0.5) mg/dL AST 15 (5-34) Units/L ALT 12 (0-55) Units/L Alkaline Phosphatase 66 (38-126) Units/L Albumin 3.6 D (3.5-5.0) g/dL Consult Discharge Plan - Plan Referrals: NO,PCP [Primary Care Provider] - <Sy Hong H - Last Filed: 06/03/16 13:51> Date of Encounter: 06/03/16 - Constitutional Vitals: Temp Pulse Resp BP Pulse Ox 99.0 F 100 16 135/80 96 06/03/16 13:14 06/03/16 13:14 06/03/16 13:14 06/03/16 13:14 06/03/16 13:14 Internal Medicine: Result - Labs CBC & Chem 7: 06/03/16 04:12 06/03/16 04:12 Labs: Short CBC 06/03/16 Range/Units 04:12 WBC 12.8 H (4.3-11.1) K/mcL Hgb 12.1 L D (12.9-16.9) g/dL Hct 37.2 L (37.5-50.1) % Plt Count 267 (140-400) K/mcL Neutrophils # 9.5 H (1.6-8.9) K/mcL BMP 06/03/16 04:12 Sodium 138 Potassium 3.9 Chloride 107 Carbon Dioxide 27 BUN 6 L Creatinine 1.38 H Glucose 114 H Calcium 9.0 Liver Function 06/03/16 Range/Units 04:12 Total Bilirubin 2.3 H (0.2-1.2) mg/dL Direct Bilirubin 0.5 (0.0-0.5) mg/dL AST 15 (5-34) Units/L ALT 12 (0-55) Units/L Alkaline Phosphatase 66 (38-126) Units/L Albumin 3.6 D (3.5-5.0) g/dL - Attending Attestation acute abdominal pain ( diffuse) positive rebound unclear etiology SIRS order CT scan with contrast IV and ORal NPO Increase IVF consider surgery consult dilaudid, continue scarlett, add flagyl IV I examined this patient and my medical decision-making was reviewed with the LIFE SKILLS EDUCATOR/PA/Advanced Practice Nurse/Resident Physician. I agree with the documented findings, disposition and treatment plan as described except to the extent set forth below.
[2016-06-03] MEDS: Ondansetron 4 MG/2 ML VIAL IVP PRN (14:23)
[2016-06-03] MEDS: MetroNIDAZOLE 500 MG/100 ML 500 MG/100 ML BAG IVPB SCH ×3 (15:54→23:21)
[2016-06-03] MEDS ORDERED: Acetaminophen IV 1,000 MG/100 ML INFUS..BTL IVPB PRN (19:00)
[2016-06-04] MEDS: Ketorolac 30 MG/ML VIAL IVP PRN (00:01)
[2016-06-04] MEDS: *HR* HYDROmorphone (PF) 1 MG/ML SYRINGE IVP PRN ×6 (03:23→21:32)
[2016-06-04] MEDS: 0.9 % Sodium Chloride 1,000 ML IVC SCH ×3 (03:23→20:29)
[2016-06-04 05:31] LABS: Hematocrit 37.3 % (37.5-50.1); Hemoglobin 11.8 g/dL (12.9-16.9); Mean Corpuscular HGB Conc 31.6 g/dL (31.6-35.5); Mean Corpuscular Hemoglobin 27.7 pg (28.0-33.3); Mean Corpuscular Volume 87.6 fL (83.0-100.0); Mean Platelet Volume 9.2 fL (9.4-12.4); Platelet Count 220 K/mcL (140-400); Red Blood Count 4.26 M/mcL (4.19-5.50); Red Cell Distribution Width 12.4 % (11.5-14.5)
[2016-06-04 05:39] LABS: Alanine Aminotransferase 13 Units/L (0-55); Alkaline Phosphatase 59 Units/L (38-126); Aspartate Amino Transferase 14 Units/L (5-34); BUN/Creatinine Ratio 7 (6-26); Bilirubin,Total 3.4 mg/dL (0.2-1.2); Blood Urea Nitrogen 9 mg/dL (8-26); Calcium 8.5 mg/dL (8.6-10.8); Carbon Dioxide 21 mEq/L (19-29); Chloride 104 mEq/L (98-109); Globulin 2.7 g/dL (2.4-3.5); Glucose 93 mg/dL (70-99); Osmolality,Calculated 278 (280-300); Potassium 3.9 mEq/L (3.5-4.5); Sodium 135 mEq/L (136-145); Total Protein 5.5 g/dL (6.0-8.3); eGFR For African Americans > 60 (> 60); eGFR For Non-African Americans > 60 (> 60)
[2016-06-04 05:40] LABS: Albumin 2.8 g/dL (3.5-5.0)
[2016-06-04] MEDS: Famotidine 20 MG/2 ML VIAL IVP SCH ×2 (06:04→18:50)
[2016-06-04 06:41] LABS: Lymphocytes # 0.8 K/mcL (0.6-4.6); Monocytes # 0.4 K/mcL (0.0-1.3); Neutrophils # 2.8 K/mcL (1.6-8.9); Platelet Estimate Normal (Normal)
[2016-06-04] MEDS ORDERED: Dexamethasone 4 MG/ML VIAL ONE (07:16)
[2016-06-04] MEDS ORDERED: Ondansetron 4 MG/2 ML VIAL ONE (07:16)
[2016-06-04] MEDS ORDERED: *HR* Succinylcholine 200 MG/10 ML VIAL IVP ONE (07:16)
[2016-06-04] MEDS ORDERED: Lidocaine -MPF 2% 2 ML VIAL ONE (07:16)
[2016-06-04] MEDS ORDERED: *HR* Rocuronium Bromide 50 MG/5 ML VIAL ONE (07:16)
[2016-06-04] MEDS ORDERED: *HR* FentaNYL (PF) 100 MCG/2 ML VIAL ONE (07:16)
[2016-06-04] MEDS ORDERED: *HR* Propofol 200 MG/20 ML VIAL IVP ONE (07:16)
[2016-06-04] MEDS ORDERED: Famotidine 20 MG/2 ML VIAL ONE (07:20)
[2016-06-04] MEDS ORDERED: Acetaminophen IV 1,000 MG/100 ML INFUS..BTL ONE (07:20)
[2016-06-04] MEDS: MetroNIDAZOLE 500 MG/100 ML 500 MG/100 ML BAG IVPB SCH (07:28)
--- NOTE | 2016-06-04 07:32 | Internal Med Progress Note ---
<Elmo Vegas - Last Filed: 06/04/16 07:44> Date of Encounter: 06/04/16 Time of Encounter: 07:30 - Assessment and plan (1) Acute appendicitis Current Visit: Yes Status: Acute Assessment and plan: Patient presented with acute abdominal pain, febrile, tachycardia and bilateral flank pain. WBC elevated to 12.8, this morning has Banded Neutrophils. Initial CT of the abdomen without contrast did not demonstrate any acute intra- abdominal abnormalities. Patient's presentation was more concerning and abdominal CT with contrast was performed demonstrating acute appendicitis including dilated appendix, large appendicolith, and adjacent stranding associated with a moderate volume of free fluid in the pelvis from the appendix suspected to be reactive. No pneumoperitoneum or well defined drainable fluid collection. 06/04/2016: Patient continues to have diffuse abdominal pain, fluctuating fevers. Plan for surgery today. Plan: - Continue IV Zosyn and Flagyl - Continue IV fluids at 200 mL/hr - Nothing by mouth diet prior to surgery Qualifiers: Qualified Code(s): K35.80 - Unspecified acute appendicitis (2) UTI (urinary tract infection) Current Visit: Yes Status: Acute Assessment and plan: Patient presented with fevers, abdominal pain, bilateral flank pain is concerning for pyelonephritis on initial presentation. Urinalysis was concerning for urinary tract infection, urine culture was negative growth. Suspect abdominal pain and bilateral flank pain correlating with appendicitis. Levaquin was discontinued and patient was started on Zosyn and Flagyl. - History of recurrent urinary tract infections. - CT of the abdomen and pelvis demonstrate diffuse bladder wall thickening. Plan: - continue IV antibiotics. Qualifiers: Qualified Code(s): N30.00 - Acute cystitis without hematuria (3) VIVIAN (acute kidney injury) Current Visit: Yes Status: Acute Assessment and plan: Acute kidney injury likely secondary to dehydration with nausea and vomiting and poor by mouth intake. Also possible contribution from UTI and appendicitis. Creatinine improving. Plan: -Continue IV normal saline at 200 mL/hr - Monitor renal function and labs (4) Spina bifida Current Visit: Yes Status: Chronic Assessment and plan: Known history of spina bifida and sacral region. Likely contributing to recurrent urinary tract infections. Qualifiers: Qualified Code(s): Q05.9 - Spina bifida, unspecified - Subjective Interval history: Mr. James 25-year-old AA male with hx of spina bifida and recurrent UTIs has been seen and evaluated patient bedside this morning. He is alert awake and interactive. He denies improvement in his pain overnight. He continues to have diffuse abdominal pain worsened by movement in any direction. He denies appetite denies vomiting but continues to have nausea. He understands that he has appendicitis and is awaiting the surgeon's evaluation this morning. He has no further questions at this time.. - Constitutional Vitals: Temp Pulse Resp BP Pulse Ox 99.7 F H 110 17 110/64 96 06/04/16 06:40 06/04/16 06:40 06/04/16 06:40 06/04/16 06:40 06/04/16 06:40 General appearance: Present: A&O X 3, pleasant, no acute distress - Head Head exam: Present: atraumatic, normocephalic - Eye Eye exam: Present: PERRL, conjuntiva pink, sclera anicteric Pupils: Present: PERRL - Neck Neck exam general surgery: Present: supple, trachea midline. Absent: lymphadenopathy - Respiratory Respiratory exam: Present: CTAB. Absent: accessory muscle use, rales, rhonchi, wheezes - Cardiovascular Cardiovascular exam: Present: RRR, +S1, +S2. Absent: diastolic murmur, gallop, rubs, systolic murmur - GI/Abdominal GI/Abdominal exam: Present: normal bowel sounds, soft, no peritoneal signs. Absent: distended, tenderness - Extremities Exam Extremities exam: Present: warm, radial pulses palpable and symetrical. Absent : calf tenderness, cyanotic, pedal edema - Neurological Exam Neurological exam: Present: alert, oriented X3, no focal deficits - Psychiatric Psychiatric exam: Present: normal affect, normal mood Internal Medicine: Result - Labs CBC & Chem 7: 06/04/16 05:04 06/04/16 05:04 Labs: Short CBC 06/04/16 Range/Units 05:04 WBC 4.3 D (4.3-11.1) K/mcL Hgb 11.8 L (12.9-16.9) g/dL Hct 37.3 L (37.5-50.1) % Plt Count 220 (140-400) K/mcL Neutrophils # 2.8 (1.6-8.9) K/mcL BMP 06/04/16 05:04 Sodium 135 L Potassium 3.9 Chloride 104 Carbon Dioxide 21 BUN 9 Creatinine 1.29 H Glucose 93 Calcium 8.5 L Liver Function 06/04/16 Range/Units 05:04 Total Bilirubin 3.4 H (0.2-1.2) mg/dL AST 14 (5-34) Units/L ALT 13 (0-55) Units/L Alkaline Phosphatase 59 (38-126) Units/L Albumin 2.8 L D (3.5-5.0) g/dL - Impressions Impressions Abdomen/Pelvis CT 06/03/16 16:15 IMPRESSION: 1. Findings compatible with acute appendicitis including dilated appendix, large appendicolith, and adjacent stranding. Moderate volume of free fluid in the pelvis separate from the appendix is likely reactive. No pneumoperitoneum or well-defined drainable fluid collection. 2. Diffuse urinary bladder wall thickening. Recommend correlation with urinalysis. Findings were discussed with the patient's nurse Wilson Manzo of the [facility] at 5:12 pm on 06/03/2016. D/ / Lv Maldonado MD / Lv Maldonado MD Interpreting Provider: Lv Maldonado MD Consult Discharge Plan - Plan Referrals: NO,PCP [Primary Care Provider] - <Sy Hong H - Last Filed: 06/04/16 11:52> Date of Encounter: 06/04/16 - Constitutional Vitals: Temp Pulse Resp BP Pulse Ox 99.3 F 73 16 101/61 98 06/04/16 10:27 06/04/16 10:27 06/04/16 10:27 06/04/16 10:27 06/04/16 10:27 Internal Medicine: Result - Labs CBC & Chem 7: 06/04/16 05:04 06/04/16 05:04 Labs: Short CBC 06/04/16 Range/Units 05:04 WBC 4.3 D (4.3-11.1) K/mcL Hgb 11.8 L (12.9-16.9) g/dL Hct 37.3 L (37.5-50.1) % Plt Count 220 (140-400) K/mcL Neutrophils # 2.8 (1.6-8.9) K/mcL BMP 06/04/16 05:04 Sodium 135 L Potassium 3.9 Chloride 104 Carbon Dioxide 21 BUN 9 Creatinine 1.29 H Glucose 93 Calcium 8.5 L Liver Function 06/04/16 Range/Units 05:04 Total Bilirubin 3.4 H (0.2-1.2) mg/dL AST 14 (5-34) Units/L ALT 13 (0-55) Units/L Alkaline Phosphatase 59 (38-126) Units/L Albumin 2.8 L D (3.5-5.0) g/dL - Impressions Impressions Abdomen/Pelvis CT 06/03/16 16:15 IMPRESSION: 1. Findings compatible with acute appendicitis including dilated appendix, large appendicolith, and adjacent stranding. Moderate volume of free fluid in the pelvis separate from the appendix is likely reactive. No pneumoperitoneum or well-defined drainable fluid collection. 2. Diffuse urinary bladder wall thickening. Recommend correlation with urinalysis. Findings were discussed with the patient's nurse Wilson Manzo of the [facility] at 5:12 pm on 06/03/2016. D/ / Lv Maldonado MD / Lv Maldonado MD Interpreting Provider: Lv Maldonado MD - Attending Attestation Sepsis 2ry to acute appendicitis. may de-escalate antibiotics if better I examined this patient and my medical decision-making was reviewed with the DISTRICT PLANT SUPERVISOR/PA/Advanced Practice Nurse/Resident Physician. I agree with the documented findings, disposition and treatment plan as described except to the extent set forth below.
--- NOTE | 2016-06-04 08:08 | Anesthesia Evaluation PreOp ---
Date of Encounter: 06/04/16 Time of Encounter: 08:10 - Past History Planned Operation: Lap Appendectomy Cardiac History: VT, CHF Pulmonary History: Smoker GRINDER OPERATOR History: CVA, TIA, Other (Spina Bifida with weakened/lax calf muscles) Other Medical History: Renal (Acute Kidney Disease/Chronic Pyelonephritis), Other (Schizophrenic/Bipolar) Anesthesia History: No Prior Anesthetic Complications Alcohol Use: none, occasionally Drug use: marijuana Medications and Allergies Aspirin 325 mg PO DAILY PRN 06/02/16 [History] Allergies latex Allergy (Verified 06/02/16 06:36) Anaphylaxis Penicillins [PCN] Allergy (Verified 06/02/16 06:36) See Comments - Meds/Allergy Pre-op Review Medications Reviewed: Yes Allergies Reviewed: Yes Beta Blockers on Current Med List: No Anesthesia Results - Labs 06/04/16 05:04 06/04/16 05:04 - Imaging EKG: report reviewed (SR with Arrythmia) Anesthesia Exam O2 Sat O2 Sat by Pulse Oximetry 96 O2 Sat by Pulse Oximetry 93 O2 Sat by Pulse Oximetry 99 O2 Sat by Pulse Oximetry 98 O2 Sat by Pulse Oximetry 96 Vital Signs Temp Pulse Resp BP Pulse Ox 98.6 F 85 20 129/107 100 06/02/16 00:23 06/02/16 00:23 06/02/16 00:23 06/02/16 00:23 06/02/16 00:23 Height: 5'10 Weight: 163 lbs NPO (# of Hours): MN Pain Scale: 0 - HEENT Pupil (Motor): Pupils equal, EOMI Mallampati: III Teeth: Normal Oral Opening: Greater than 3 - GRINDER OPERATOR LOC: Oriented GRINDER OPERATOR Motor: Normal RUE, Normal LUE, Normal Face, Deficit RLE, Deficit LLE GRINDER OPERATOR Sensory: Normal: RUE, LUE, RLE, LLE, Face - Cardiac Rhythm: Regular Murmur: None JVD: No Carotid Bruit: No - Pulmonary Breath Sounds: bilateral Clear Respiratory Effort: Symmetrical Anesthesia Assess/Plan ASA Score: 3 (CAD CVA Spina Bifida) Modified [place] Scale for Level of Consciousness: Cooperative, oriented, and tranquil Anesthetic Plan: General Monitoring Plan: Standard Monitors Recovery Plan: PACU (Discussed GA, agrees to proceed)
[2016-06-04] MEDS ORDERED: Albuterol 2.5 MG/3 ML NEBULIZER IH ONE (08:13)
[2016-06-04] MEDS ORDERED: Albuterol 2.5 MG/3 ML NEBULIZER ONE (08:15)
--- NOTE | 2016-06-04 08:15 | General Surgery Consult Note ---
Date of Encounter: 06/04/16 Time of Encounter: 07:30 Assessment and Plan (1) Abdominal pain Current Visit: Yes Status: Acute prn pain medication Qualifiers: Abdominal location: left lower quadrant Qualified Code(s): R10.32 - Left lower quadrant pain (2) Acute appendicitis Current Visit: Yes Status: Acute Discussed CT results, labs and exam results with patient and that we will plan for laparoscopic appendectomy, possible open, risks and benefits discussed and he wishes to proceed. npo, pain control prn, gi/dvt prophylaxis, abx Qualifiers: Acute appendicitis type: unspecified acute appendicitis type Qualified Code (s): K35.80 - Unspecified acute appendicitis History of Present Illness Consult date: 06/04/16 Reason for consult: abdominal pain History of present illness: Patient has been in hospital since . He has been having abdominal pain since Sun or . The pain started around the umbilicus and LUQ and he describes it as sharp. He has pain now in RLQ and near umbilicus. He originally had nausea and vomiting when it started but currently has none. He denies diarrhea. He has no fevers, chills or night sweats. He had some dysuria originally. He has had two [place] and a stroke in the past. Pt has spina bifida. CT scan done yesterday showed a appendicolith impacted in the appendix with dilation and periappendaceal inflammation. Past Med Surg Social Fam HX - Past Medical History Source: patient Medical history: CHF, coronary artery disease, CVA, myocardial infarction, renal disease, TIA Psychiatric history: anxiety, bipolar, depression, schizophrenia - Past Surgical History Surgical History: other (wisdom teeth extraction and spinal surgery) - Social History Smoking Status: Current every day smoker Smokeless Tobacco Status: No Alcohol use: none, occasionally Drug use: marijuana Medications and Allergies Aspirin 325 mg PO DAILY PRN 06/02/16 [History] Allergies latex Allergy (Verified 06/02/16 06:36) Anaphylaxis Penicillins [PCN] Allergy (Verified 06/02/16 06:36) See Comments Review of Systems All systems PM: reviewed and no additional remarkable complaints except as stated All systems PM: A 10-system review of systems was performed and is negative for pertinent findings except as documented above in the HPI. General Surgery Exam Initial Vital Signs Temp Pulse Resp BP Pulse Ox 98.6 F 85 20 129/107 100 06/02/16 00:23 06/02/16 00:23 06/02/16 00:23 06/02/16 00:23 06/02/16 00:23 - General physical appearance well developed, well nourished, moderate distress, moderate pain - Eyes PERRL, normal ocular movement - ENT normal mucosa, normocephalic - Neck trachea midline - Respiratory normal expansion, clear to auscultation - Cardiovascular Cardiovascular exam: Present: RRR - Abdomen Abdomen general surgery: Present: bowel sounds present, soft, tender (diffusely , no rebound or guarding). Absent: guarding, rebound, rigid - Integumentary Integumentary general surgery: Present: warm and dry, no abnormal pigmentation - Neurologic Present: CN 2-12 grossly intact - Musculoskeletal Present: normal posture - Psychiatric Psychiatric general surgery: Present: A&Ox3, speech is normal Exam Initial Vital Signs Temp Pulse Resp BP Pulse Ox 98.6 F 85 20 129/107 100 06/02/16 00:23 06/02/16 00:23 06/02/16 00:23 06/02/16 00:23 06/02/16 00:23 Results - Labs 06/04/16 05:04 06/04/16 05:04 Abnormal lab results Hgb 11.8 g/dL (12.9-16.9) L 06/04/16 05:04 Hct 37.3 % (37.5-50.1) L 06/04/16 05:04 MCH 27.7 pg (28.0-33.3) L 06/04/16 05:04 MPV 9.2 fL (9.4-12.4) L 06/04/16 05:04 Band Neutrophils % 22.0 % (0-4) H 06/04/16 05:04 Metamyelocytes % 6.0 % (0) H 06/04/16 05:04 Myelocytes % 2.0 % (0) H 06/04/16 05:04 Sodium 135 mEq/L (136-145) L 06/04/16 05:04 Creatinine 1.29 mg/dL (0.72-1.25) H 06/04/16 05:04 POC Glucose 95 (58-89) H 06/04/16 03:39 Calculated Osmolality 278 (280-300) L 06/04/16 05:04 Calcium 8.5 mg/dL (8.6-10.8) L 06/04/16 05:04 Total Bilirubin 3.4 mg/dL (0.2-1.2) H 06/04/16 05:04 Indirect Bilirubin 1.8 mg/dL (0.0-1.2) H 06/03/16 04:12 C-Reactive Protein 132 mg/L (Less than 5) H 06/03/16 04:12 Serum Total Protein 5.5 g/dL (6.0-8.3) L 06/04/16 05:04 Albumin 2.8 g/dL (3.5-5.0) L D 06/04/16 05:04 Albumin/Globulin Ratio 1.0 (1.1-2.2) L 06/04/16 05:04 Urine Clarity Cloudy (Clear) A 06/02/16 03:35 Urine Ketones 80 mg/dL (Negative) H 06/02/16 03:35 Ur Leukocyte Esterase Moderate (Negative) H 06/02/16 03:35 Urine Microscopic WBC 30-50 per hpf (0-3) H 06/02/16 03:35 Ur Squamous Epith Cells Many per lpf (None-Few) H 06/02/16 03:35 Ur Culture Indicated? YES (NO) A 06/02/16 03:35 Diabetes panel 06/04/16 Range/Units 05:04 Sodium 135 L (136-145) mEq/L Potassium 3.9 (3.5-4.5) mEq/L Chloride 104 (98-109) mEq/L Carbon Dioxide 21 (19-29) mEq/L BUN 9 (8-26) mg/dL Creatinine 1.29 H (0.72-1.25) mg/dL Glucose 93 (70-99) mg/dL Calcium 8.5 L (8.6-10.8) mg/dL AST 14 (5-34) Units/L ALT 13 (0-55) Units/L Alkaline Phosphatase 59 (38-126) Units/L Albumin 2.8 L D (3.5-5.0) g/dL Calcium panel 06/04/16 Range/Units 05:04 Calcium 8.5 L (8.6-10.8) mg/dL Albumin 2.8 L D (3.5-5.0) g/dL Pituitary panel 06/04/16 Range/Units 05:04 Sodium 135 L (136-145) mEq/L Potassium 3.9 (3.5-4.5) mEq/L Chloride 104 (98-109) mEq/L Carbon Dioxide 21 (19-29) mEq/L BUN 9 (8-26) mg/dL Creatinine 1.29 H (0.72-1.25) mg/dL Glucose 93 (70-99) mg/dL Calcium 8.5 L (8.6-10.8) mg/dL Adrenal panel 06/04/16 Range/Units 05:04 Sodium 135 L (136-145) mEq/L Potassium 3.9 (3.5-4.5) mEq/L Chloride 104 (98-109) mEq/L Carbon Dioxide 21 (19-29) mEq/L BUN 9 (8-26) mg/dL Creatinine 1.29 H (0.72-1.25) mg/dL Glucose 93 (70-99) mg/dL Calcium 8.5 L (8.6-10.8) mg/dL Total Bilirubin 3.4 H (0.2-1.2) mg/dL AST 14 (5-34) Units/L ALT 13 (0-55) Units/L Alkaline Phosphatase 59 (38-126) Units/L Albumin 2.8 L D (3.5-5.0) g/dL All other labs normal. - Imaging CT scan - abdomen: report reviewed, image reviewed CT scan - pelvis: report reviewed, image reviewed (I personally reviewed images of CT scan) Consult Discharge Plan - Plan Referrals: NO,PCP [Primary Care Provider] -
[2016-06-04] MEDS: Levofloxacin 750 MG/150 ML 750 MG/150 ML BAG IVPB SCH (08:25)
[2016-06-04] MEDS ORDERED: *HR* Midazolam HCl 2 MG/2 ML VIAL ONE (08:27)
[2016-06-04] MEDS ORDERED: Neostigmine Methylsulfate 3 MG/3 ML SYRINGE ONE (09:35)
[2016-06-04] MEDS ORDERED: *HR* HYDROmorphone 2 MG/ML SYRINGE ONE (09:40)
[2016-06-04] MEDS ORDERED: *HR* HYDROmorphone (PF) 1 MG/ML SYRINGE IVP PRN (09:47)
--- NOTE | 2016-06-04 09:48 | Operative Note ---
Date of procedure: 06/04/16 Pre-op diagnosis: acute appendicitis Post-op diagnosis: other (acute gangrenous perforated appendicitis) Procedure: Laparoscopic appendectomy Complications: none immediate Anesthesia: GETA, local Local Anesthetics: 0.5% Sensorcaine HCL SubQ (cc) (30) Surgeon: Megan Arredondo Gis Engineer Other: Bobbi Gordon Estimated blood loss (cc): 5 Specimen: appendix Condition: stable Disposition: PACU Procedure in Detail: patient was brought to the operating suite and sign in was performed and everyone was in agreement. Patient was placed supine on the operating table and anesthesia was induced without incident and the patient was intubated. The abdomen was shaved and then prepped and draped in the usual sterile fashion. Time out was performed and everyone was in agreement. A supraumbilical incison was made through the skin into the subcutaneous tissue with an 11# blade. Towel clamps were placed on either side of the umbilicus for retraction. A veress needle was placed through the abdomen and a water drop test confirmed placement and the abdomen was insuflated. The abdomen was entered with a 5 mm 0 degree laprascope on a 5mm X-naun trocar. There was significant fibrinous exudate throughout the entire abdomen as well as yellowish fluid along the gutters and in the pelvis. The small bowel was adherent to itself with inflammation and was erythematous. A 5 mm trocar was placed in the LLQ under direct visualization after first incision the skin with an 11# blade. A suprapubic 5 mm port was placed under direct visualization after first incising the skin with an 11# blade. The supraumbilical port was exchanged for a 12 mm port. The cecum was identified as well as the terminal ileum. The appendix at the base of the cecum was identified and grasped with laparoscopic babcocks. The appendix was densley adherent to the posterior pelvis behind small bowel. This was gently dissected free with laparoscopic Deb[place]ys. The distal half of the appendix was very edematous, swollen, black and friable. The patient had perforated gangrenous appendicitis. A lap [place] was used to dissect between the base of the appendix and the mesoappendix. THe mesoappendix was transected with a Flex-ex ETS stapler using a white load. THe same stapler and load type was used to transect the appendix at the base of the cecum. The appendix was placed in a laparoscopic endocatch bag and removed via the umibilical incision. The abdomen was copiously irrigated with 3L NS. A 10 mm CAS drain was placed into the abdomen and through the LLQ port site. The drain was placed in the pelvis at the site of the previously adherent appendix. The CAS drain was secured to the skin with a 2-0 silk stitch. All trocars were removed. The supraumbilical incision was closed with an 0 vicryl figure of eight stitch. The skin at the supraumbilical and suprapubicl port sites were irrigated with sterile saline and closed with skin sonia. Bandaids were placed over the port sites and a drain sponge placed at the CAS drain site. 30cc 0.5% Marcaine was injected at the three port sites. The patient tolerated the procedure well. He was awoken in the operating suite and extubated by anesthesia without incident. All lap and instrument counts were correct at the end of the case. He was taken to pacu in stable condition.
--- NOTE | 2016-06-04 10:20 | Anesthesia Evaluation Post Op ---
Date of Encounter: 06/04/16 Time of Encounter: 10:25 - Vital Signs Vital Signs: Vital Signs/O2 Sat/Glucose, Most Current Temp Pulse Resp BP Pulse Ox 06/04/16 10:17 77 16 97 06/04/16 10:07 92 189 105/56 92 06/04/16 09:57 98.5 F 93 14 102/54 94 06/04/16 06:40 99.7 F H 110 17 110/64 96 - Lungs Lungs: Clear Ascult./Percussion - Airway Airway: Non-obstructed - Cardiovascular Regular Rate - Mental Status Mental Status: Alert & Oriented, Answers Appropriately - Pain Pain Scale: 0 - Nausea Vomiting Nausea Vomiting: Not Present - Hydration Hydration: Ice chips - Discharge PostOp Status: Transfer Patient to floor
[2016-06-04] MEDS ORDERED: Naloxone 0.4 MG/ML INJ IVP PRN (11:08)
[2016-06-04] MEDS ORDERED: Acetaminophen IV 1,000 MG/100 ML INFUS..BTL IVPB PRN (11:08)
[2016-06-04] MEDS: Nicotine 21 MG PATCH.TD24 TD SCH (16:37)
[2016-06-05] MEDS: *HR* HYDROmorphone (PF) 1 MG/ML SYRINGE IVP PRN ×5 (00:18→13:43)
[2016-06-05] MEDS: Ondansetron 4 MG/2 ML VIAL IVP PRN ×3 (00:20→23:38)
[2016-06-05] MEDS: 0.9 % Sodium Chloride 1,000 ML IVC SCH ×2 (04:47→17:18)
[2016-06-05 04:49] LABS: Basophils % 0.1 %; Eosinophils % 0.1 %; Hematocrit 34.6 % (37.5-50.1); Hemoglobin 10.8 g/dL (12.9-16.9); Immature Granulocytes % 0.3 % (0-4); Lymphocytes # 1.1 K/mcL (0.6-4.6); Lymphocytes % 11.6 %; Mean Corpuscular HGB Conc 31.2 g/dL (31.6-35.5); Mean Corpuscular Hemoglobin 27.5 pg (28.0-33.3); Mean Platelet Volume 9.4 fL (9.4-12.4); Monocytes # 0.8 K/mcL (0.0-1.3); Monocytes % 8.5 %; Neutrophils # 7.5 K/mcL (1.6-8.9); Platelet Count 254 K/mcL (140-400); Red Blood Count 3.93 M/mcL (4.19-5.50); Red Cell Distribution Width 12.4 % (11.5-14.5); Segmented Neutrophils % 79.4 %
[2016-06-05] MEDS: *HR* Promethazine 25 MG/ML VIAL IVP PRN (04:58)
[2016-06-05] MEDS: Famotidine 20 MG/2 ML VIAL IVP SCH ×2 (05:00→17:17)
[2016-06-05 05:11] LABS: Magnesium 1.5 mg/dL (1.6-2.6)
[2016-06-05 05:14] LABS: Alanine Aminotransferase 20 Units/L (0-55); Albumin 2.5 g/dL (3.5-5.0); Albumin/Globulin Ratio 0.8 (1.1-2.2); Alkaline Phosphatase 62 Units/L (38-126); Aspartate Amino Transferase 26 Units/L (5-34); BUN/Creatinine Ratio 9 (6-26); Bilirubin,Total 2.2 mg/dL (0.2-1.2); Blood Urea Nitrogen 12 mg/dL (8-26); Calcium 8.8 mg/dL (8.6-10.8); Carbon Dioxide 20 mEq/L (19-29); Chloride 106 mEq/L (98-109); Glucose 93 mg/dL (70-99); Osmolality,Calculated 279 (280-300); Sodium 135 mEq/L (136-145); Total Protein 5.5 g/dL (6.0-8.3); eGFR For African Americans > 60 (> 60); eGFR For Non-African Americans > 60 (> 60)
[2016-06-05 05:52] LABS: Platelet Estimate Normal (Normal)
[2016-06-05] MEDS ORDERED: Magnesium Sulfate 2 GM in D5% in Water 100 ML IVPB ONE (07:35)
[2016-06-05] MEDS: Levofloxacin 750 MG/150 ML 750 MG/150 ML BAG IVPB SCH ×2 (08:17→08:29)
[2016-06-05] MEDS: MetroNIDAZOLE 500 MG/100 ML 500 MG/100 ML BAG IVPB SCH ×4 (08:17→23:38)
[2016-06-05] MEDS: Nicotine 21 MG PATCH.TD24 TD SCH (08:18)
--- NOTE | 2016-06-05 08:36 | Internal Med Progress Note ---
<Elmo Vegas - Last Filed: 06/05/16 08:45> Date of Encounter: 06/05/16 Time of Encounter: 08:36 - Assessment and plan (1) Acute appendicitis Current Visit: Yes Status: Acute Assessment and plan: post-op appendectomy of perforated gangrenous appendix yesterday. Patient continues to have abdominal tenderness but improved from initial presentation. Bowel sounds are present patient has not had flatulence or a bowel movement but has been urinating. Lower left quadrant drain in place with appropriate drainage. - Leukocytosis resolved, temperature 99.8 which is the high over 24 hours, respirations 14 and heart rate 92 blood pressure 137/92 has been normotensive since postop oxygen saturation is 93% on room air. Plan: - Advance postop diet per surgery recommendations. - Current antibiotic coverage includes Levaquin and metronidazole. Plan to de- escalate antibiotic coverage, to metronidazole. - Monitor CAS drain output. Qualifiers: Acute appendicitis type: unspecified acute appendicitis type Qualified Code (s): K35.80 - Unspecified acute appendicitis (2) UTI (urinary tract infection) Current Visit: Yes Status: Acute Assessment and plan: Patient presented with fevers, abdominal pain, bilateral flank pain is concerning for pyelonephritis on initial presentation. Urinalysis was concerning for urinary tract infection, urine culture was negative growth. Suspect abdominal pain and bilateral flank pain correlating with appendicitis. - History of recurrent urinary tract infections. - CT of the abdomen and pelvis demonstrate diffuse bladder wall thickening. Plan: - continue Levaquin Qualifiers: Qualified Code(s): N39.0 - Urinary tract infection, site not specified (3) VIVIAN (acute kidney injury) Current Visit: Yes Status: Acute Assessment and plan: Acute kidney injury likely secondary to dehydration with nausea and vomiting and poor by mouth intake. Also possible contribution from UTI and appendicitis. Creatinine improving. Plan: -Continue IV normal saline at 125 mL/hr - Monitor renal function and labs (4) Spina bifida Current Visit: Yes Status: Chronic Assessment and plan: Known history of spina bifida and sacral region. Likely contributing to recurrent urinary tract infections. Qualifiers: Qualified Code(s): Q05.9 - Spina bifida, unspecified (5) Hypomagnesemia Current Visit: Yes Status: Acute Assessment and plan: Magnesium 1.5 and Phosphorus 2.0 - Plan to replace orally. - Subjective Interval history: Mr. James 25-year-old AA male with hx of spina bifida and recurrent UTIs has been seen and evaluated patient bedside this morning. He is alert awake and interactive. He complains of abdominal tenderness since surgery he denies any bowel movements or flatulence. He has been feeling feverish but denies diaphoresis or night sweats. He denies chest pain or shortness of breath. He does have an appetite but is only had ice chips. He denies any other concerns at this time. - Constitutional Vitals: Temp Pulse Resp BP Pulse Ox 99.8 F H 92 14 137/92 93 06/05/16 07:29 06/05/16 07:29 06/05/16 07:29 06/05/16 07:29 06/05/16 07:29 General appearance: Present: A&O X 3, pleasant, no acute distress - Head Head exam: Present: atraumatic, normocephalic - Eye Eye exam: Present: PERRL, conjuntiva pink, sclera anicteric Pupils: Present: PERRL - ENT ENT exam: Present: mucous membranes moist - Neck Neck exam general surgery: Present: supple, trachea midline. Absent: lymphadenopathy - Respiratory Respiratory exam: Present: CTAB. Absent: accessory muscle use, rales, rhonchi, wheezes - Cardiovascular Cardiovascular exam: Present: RRR, +S1, +S2. Absent: diastolic murmur, gallop, rubs, systolic murmur - GI/Abdominal GI/Abdominal exam: Present: distended, hypoactive bowel sounds, tenderness Additional comments: Abdomen is tender, distended, hypoactive bowel sounds, drain in lower left quadrant with adequate output. - Extremities Exam Extremities exam: Present: warm, radial pulses palpable and symetrical. Absent : calf tenderness, cyanotic, pedal edema - Neurological Exam Neurological exam: Present: alert, oriented X3, no focal deficits. Absent: pronater drift, facial droop, speech deficit - Psychiatric Psychiatric exam: Present: normal affect, normal mood Internal Medicine: Result - Labs CBC & Chem 7: 06/05/16 04:12 06/05/16 04:12 Labs: Short CBC 06/05/16 Range/Units 04:12 WBC 9.4 D (4.3-11.1) K/mcL Hgb 10.8 L (12.9-16.9) g/dL Hct 34.6 L (37.5-50.1) % Plt Count 254 (140-400) K/mcL Neutrophils # 7.5 (1.6-8.9) K/mcL [facility] 06/05/16 04:12 Sodium 135 L Potassium 4.0 Chloride 106 Carbon Dioxide 20 BUN 12 Creatinine 1.27 H Glucose 93 Calcium 8.8 Liver Function 06/05/16 Range/Units 04:12 Total Bilirubin 2.2 H (0.2-1.2) mg/dL AST 26 (5-34) Units/L ALT 20 (0-55) Units/L Alkaline Phosphatase 62 (38-126) Units/L Albumin 2.5 L (3.5-5.0) g/dL - VTE Documentation of Mechanical Device: Intermittent pneumatic compression device Consult Discharge Plan - Plan Referrals: NO,PCP [Primary Care Provider] - <Sy Hong H - Last Filed: 06/05/16 14:10> Date of Encounter: 06/05/16 - Constitutional Vitals: Temp Pulse Resp BP Pulse Ox 98.9 F 101 16 149/88 94 06/05/16 09:00 06/05/16 09:00 06/05/16 09:00 06/05/16 09:00 06/05/16 12:29 Internal Medicine: Result - Labs CBC & Chem 7: 06/05/16 04:12 06/05/16 04:12 Labs: Short CBC 06/05/16 Range/Units 04:12 WBC 9.4 D (4.3-11.1) K/mcL Hgb 10.8 L (12.9-16.9) g/dL Hct 34.6 L (37.5-50.1) % Plt Count 254 (140-400) K/mcL Neutrophils # 7.5 (1.6-8.9) K/mcL [facility] 06/05/16 04:12 Sodium 135 L Potassium 4.0 Chloride 106 Carbon Dioxide 20 BUN 12 Creatinine 1.27 H Glucose 93 Calcium 8.8 Liver Function 06/05/16 Range/Units 04:12 Total Bilirubin 2.2 H (0.2-1.2) mg/dL AST 26 (5-34) Units/L ALT 20 (0-55) Units/L Alkaline Phosphatase 62 (38-126) Units/L Albumin 2.5 L (3.5-5.0) g/dL - Attending Attestation Sepsis 2ry to acute appendicitis. continue levaquin and flagyl NPO IV Dialudid for pain ( increase dose ) I examined this patient and my medical decision-making was reviewed with the DISH CLOTH INSPECTOR/PA/Advanced Practice Nurse/Resident Physician. I agree with the documented findings, disposition and treatment plan as described except to the extent set forth below.
--- NOTE | 2016-06-05 11:55 | General Surgery Progress Note ---
Date of Encounter: 06/05/16 Time of Encounter: 13:00 - Assessment and Plan (1) Acute gangrenous appendicitis with perforation and peritonitis Current Visit: Yes Status: Acute POD #1, Laparoscopic appendectomy Pt. tolerated the procedure well. The surgeon noted that the distal half of the appendix was very edematous, swollen, black and friable. And the appendix had perforated and was gangrenous. This pt. is at risk for developing post-op ileus and/or intrabdominal abscesses CAS-drain in place: draining yellowish fluid No bowel sounds appreciated this am. No flatus or bm per patient. TMAX o/n 99.8, WBC 9.4 Plan: NPO, IVF NS@125ml/hr, pain control, antiemetics, levoflaxacin (d/t penicillin allergy), pepcid, SCD's. continue antibiotics, npo and ivf hydration until return of bowel function, ok for popcicles and flavor ice cups prn antiemetics, prn pain control Subjective Patient reports: still having pain, no flatus, no bowel movement, afebrile Narrative: Patient seen and examined. Having expected post-op pain. Febrile o/n wih TMAX of 99.8. No bs, flatus, bm yet. wbc 9.4 some nausea, no emesis, pain primarily controlled - doesnt last long enough, no flatus or bm, feels like needs to have bm Objective Vital Signs - Last 8 Hours Temp Pulse Resp BP Pulse Ox 06/05/16 09:00 98.9 F 101 16 149/88 94 06/05/16 07:29 99.8 F H 92 14 137/92 93 06/05/16 05:17 99 F 97 16 145/93 91 Intake and Output 06/04/16 06/05/16 06/05/16 23:59 07:59 15:59 Intake Total 1000 / 1000 1000 / 1000 250 / 250 Output Total 365 / 365 388 / 388 85 / 85 Balance 635 / 635 612 / 612 165 / 165 Intake: IV Fluids 1000 / 1000 1000 / 1000 250 / 250 0.9 % Sodium Chloride 1, 1000 / 1000 1000 / 1000 000 ML @ 125 mls/hr IVC . Q8H [facility] [place] Rx#:[id number] Levaquin 750mg/150 mL 750 150 / 150 mg In 150 ml @ 100 mls/ hr IVPB DAILY [facility] Rx#: [id number] Flagyl 500 MG/100 ML 500 100 / 100 mg In 100 ml @ 100 mls/hr IVPB Q8HR [facility] Rx#: [id number] Oral 0 / 0 0 / 0 0 / 0 Output: Urine 300 / 300 250 / 250 25 / 25 Wound Drainage 65 / 65 138 / 138 60 / 60 Left Lower Abdomen 65 / 65 138 / 138 60 / 60 Other: Meal NPO NPO breakfast Percent of Meal Consumed 0% Weight 73.4 kg Blood Glucose* 117 112 102 Patient Weight 06/05/16 23:59 Weight 73.4 kg - General physical appearance well developed, well nourished, no distress, moderate pain - Eyes PERRL, normal ocular movement - ENT normal mucosa, atraumatic, normocephalic - Neck Neck exam: trachea midline - Respiratory normal expansion, clear to auscultation - Cardiovascular Cardiovascular exam: Present: RRR, no murmurs/rubs/gallops - Abdomen Abdomen: Present: soft, tender (expected post-op tenderness). Absent: bowel sounds present Additional Comments: CAS drain - Incision Incision: Present: clean and dry, intact - Integumentary no rash, no growths - Neurologic CN 2-12 grossly intact - Musculoskeletal normal posture - Psychiatric oriented to time, oriented to person, oriented to place, memory intact - Labs 06/06/16 05:02 06/06/16 05:02 Diabetes panel 06/05/16 Range/Units 04:12 Sodium 135 L (136-145) mEq/L Potassium 4.0 (3.5-4.5) mEq/L Chloride 106 (98-109) mEq/L Carbon Dioxide 20 (19-29) mEq/L BUN 12 (8-26) mg/dL Creatinine 1.27 H (0.72-1.25) mg/dL Glucose 93 (70-99) mg/dL Calcium 8.8 (8.6-10.8) mg/dL AST 26 (5-34) Units/L ALT 20 (0-55) Units/L Alkaline Phosphatase 62 (38-126) Units/L Albumin 2.5 L (3.5-5.0) g/dL Calcium panel 06/05/16 06/05/16 Range/Units 04:12 04:12 Calcium 8.8 (8.6-10.8) mg/dL Phosphorus 2.0 L (2.3-4.7) mg/dL Albumin 2.5 L (3.5-5.0) g/dL Pituitary panel 06/05/16 Range/Units 04:12 Sodium 135 L (136-145) mEq/L Potassium 4.0 (3.5-4.5) mEq/L Chloride 106 (98-109) mEq/L Carbon Dioxide 20 (19-29) mEq/L BUN 12 (8-26) mg/dL Creatinine 1.27 H (0.72-1.25) mg/dL Glucose 93 (70-99) mg/dL Calcium 8.8 (8.6-10.8) mg/dL Adrenal panel 06/05/16 Range/Units 04:12 Sodium 135 L (136-145) mEq/L Potassium 4.0 (3.5-4.5) mEq/L Chloride 106 (98-109) mEq/L Carbon Dioxide 20 (19-29) mEq/L BUN 12 (8-26) mg/dL Creatinine 1.27 H (0.72-1.25) mg/dL Glucose 93 (70-99) mg/dL Calcium 8.8 (8.6-10.8) mg/dL Total Bilirubin 2.2 H (0.2-1.2) mg/dL AST 26 (5-34) Units/L ALT 20 (0-55) Units/L Alkaline Phosphatase 62 (38-126) Units/L Albumin 2.5 L (3.5-5.0) g/dL - VTE Documentation of Mechanical Device: Intermittent pneumatic compression device Consult Discharge Plan - Plan Referrals: NO,PCP [Primary Care Provider] - - Attending Attestation I examined this patient and my medical decision-making was reviewed with the CANCER REGISTRY COORDINATOR/PA/Advanced Practice Nurse/Resident Physician. I agree with the documented findings, disposition and treatment plan as described except to the extent set forth below.
[2016-06-05] MEDS: *HR* HYDROmorphone 2 MG/ML SYRINGE IVP PRN ×3 (15:54→23:38)
[2016-06-05] MEDS: *HR* Heparin 5,000 UNIT/ML VIAL SQ SCH (17:17)
[2016-06-06] MEDS: 0.9 % Sodium Chloride 1,000 ML IVC SCH ×4 (02:27→23:28)
[2016-06-06] MEDS: *HR* HYDROmorphone 2 MG/ML SYRINGE IVP PRN ×8 (02:40→23:26)
[2016-06-06] MEDS: Ondansetron 4 MG/2 ML VIAL IVP PRN ×2 (05:53→16:12)
[2016-06-06] MEDS: Famotidine 20 MG/2 ML VIAL IVP SCH ×2 (05:53→17:53)
[2016-06-06] MEDS: *HR* Heparin 5,000 UNIT/ML VIAL SQ SCH ×2 (05:53→17:53)
[2016-06-06 05:57] LABS: Hematocrit 35.9 % (37.5-50.1); Hemoglobin 11.7 g/dL (12.9-16.9); Immature Platelets 2.4 % (1.1-6.1); Lymphocytes # 1.5 K/mcL (0.6-4.6); Mean Corpuscular HGB Conc 32.6 g/dL (31.6-35.5); Mean Corpuscular Volume 85.9 fL (83.0-100.0); Mean Platelet Volume 9.4 fL (9.4-12.4); Platelet Count 333 K/mcL (140-400); Red Blood Count 4.18 M/mcL (4.19-5.50); Red Cell Distribution Width 12.9 % (11.5-14.5)
[2016-06-06 06:14] LABS: Alanine Aminotransferase 22 Units/L (0-55); Albumin 2.3 g/dL (3.5-5.0); Albumin/Globulin Ratio 0.8 (1.1-2.2); Alkaline Phosphatase 61 Units/L (38-126); Aspartate Amino Transferase 21 Units/L (5-34); BUN/Creatinine Ratio 11 (6-26); Bilirubin,Total 1.9 mg/dL (0.2-1.2); Blood Urea Nitrogen 14 mg/dL (8-26); Calcium 8.5 mg/dL (8.6-10.8); Carbon Dioxide 21 mEq/L (19-29); Chloride 106 mEq/L (98-109); Glucose 106 mg/dL (70-99); Osmolality,Calculated 283 (280-300); Potassium 3.8 mEq/L (3.5-4.5); Sodium 136 mEq/L (136-145); Total Protein 5.3 g/dL (6.0-8.3); eGFR For African Americans > 60 (> 60); eGFR For Non-African Americans > 60 (> 60)
[2016-06-06 06:23] LABS: Monocytes # 0.8 K/mcL (0.0-1.3); Neutrophils # 10.3 K/mcL (1.6-8.9); Platelet Estimate Normal (Normal); Reactive Lymphocytes Present (Not Present)
[2016-06-06 06:24] LABS: Polychromasia 1+ (Not Present)
[2016-06-06] MEDS: Nicotine 21 MG PATCH.TD24 TD SCH (08:46)
[2016-06-06] MEDS: MetroNIDAZOLE 500 MG/100 ML 500 MG/100 ML BAG IVPB SCH ×2 (08:47→16:12)
[2016-06-06] MEDS: Levofloxacin 750 MG/150 ML 750 MG/150 ML BAG IVPB SCH (08:47)
--- NOTE | 2016-06-06 10:04 | General Surgery Progress Note ---
Date of Encounter: 06/06/16 Time of Encounter: 10:00 - Assessment and Plan (1) Acute gangrenous appendicitis with perforation and peritonitis Current Visit: Yes Status: Acute POD #2 Laparoscopic appendectomy Continue NPO except ice chips, popsicles, flavor ice Nausea increased today, denies vomiting IV fluids- 125ml/hour IV antibiotics- levaquin and flagyl WBC 94>12.5 Supportive care/pain control Increase activity as tolerated IS every 1 hours while awake Repeat am labs (2) Postoperative ileus Current Visit: Yes Status: Acute High risk for ileus secondary to gangrenous perforated appendicitis NPO while awaiting return of bowel function Nausea increased today May need NG tube if develops vomiting (3) VIVIAN (acute kidney injury) Current Visit: Yes Status: Acute Slight improvement today Cr 1.27>1.24 Continue IV fluids Strict I&Os Avoid nephrotoxic medications Repeat am labs (4) Spina bifida Current Visit: Yes Status: Chronic Qualifiers: Spinal region: unspecified Presence of hydrocephalus: without hydrocephalus Qualified Code(s): Q05.9 - Spina bifida, unspecified (5) DVT prophylaxis Current Visit: Yes Status: Acute Heparin 5,000 units SQ twice daily for DVT prophylaxis Increase activity as tolerated Subjective Patient reports: still having pain, pain is less, voiding w/o difficulty, flatus (minimal), bowel movement (last evening), nausea, afebrile (Tmax 99.8 yesterday morning) Objective Vital Signs - Last 8 Hours Temp Pulse Resp BP Pulse Ox 06/06/16 07:36 99.0 F 97 16 147/89 95 06/06/16 05:20 98.7 F 102 20 132/83 93 Intake and Output 06/05/16 06/06/16 06/06/16 23:59 07:59 15:59 Intake Total 100 / 100 1140 / 1140 Output Total 60 / 60 415 / 415 Balance 40 / 40 725 / 725 Intake: IV Fluids 100 / 100 1100 / 1100 0.9 % Sodium Chloride 1, 1000 / 1000 000 ML @ 125 mls/hr IVC . Q8H [facility] Rx#:[id number] Flagyl 500 MG/100 ML 500 100 / 100 100 / 100 mg In 100 ml @ 100 mls/hr IVPB Q8HR [facility] Rx#: [id number] Oral 0 / 0 40 / 40 Output: Urine 400 / 400 Wound Drainage Left Lower Abdomen Other: Meal NPO NPO breakfast Stool Size Large # Voids 1 Weight 73.5 kg Blood Glucose* 113 112 Patient Weight 06/06/16 23:59 Weight 73.5 kg - General physical appearance well developed, well nourished, no distress - Eyes normal ocular movement - ENT normal mucosa, atraumatic, normocephalic - Neck Neck exam: trachea midline - Respiratory normal respiratory effort, clear to auscultation - Cardiovascular Cardiovascular exam: Present: RRR - Abdomen Abdomen: Present: bowel sounds present (minimal, hypoactive), soft, distended, tender (expected post-operative tenderness), wound (CAS drain to bulb suction with serous drainage noted (Approximately 25ml since midnight)) - Incision Incision: Present: clean and dry, intact - Neurologic CN 2-12 grossly intact - Psychiatric oriented to time, oriented to person, oriented to place, speech is normal, memory intact - Labs 06/06/16 05:02 06/06/16 05:02 Diabetes panel 06/06/16 Range/Units 05:02 Sodium 136 (136-145) mEq/L Potassium 3.8 (3.5-4.5) mEq/L Chloride 106 (98-109) mEq/L Carbon Dioxide 21 (19-29) mEq/L BUN 14 (8-26) mg/dL Creatinine 1.24 (0.72-1.25) mg/dL Glucose 106 H (70-99) mg/dL Calcium 8.5 L (8.6-10.8) mg/dL AST 21 (5-34) Units/L ALT 22 (0-55) Units/L Alkaline Phosphatase 61 (38-126) Units/L Albumin 2.3 L (3.5-5.0) g/dL Calcium panel 06/06/16 Range/Units 05:02 Calcium 8.5 L (8.6-10.8) mg/dL Albumin 2.3 L (3.5-5.0) g/dL Pituitary panel 06/06/16 Range/Units 05:02 Sodium 136 (136-145) mEq/L Potassium 3.8 (3.5-4.5) mEq/L Chloride 106 (98-109) mEq/L Carbon Dioxide 21 (19-29) mEq/L BUN 14 (8-26) mg/dL Creatinine 1.24 (0.72-1.25) mg/dL Glucose 106 H (70-99) mg/dL Calcium 8.5 L (8.6-10.8) mg/dL Adrenal panel 06/06/16 Range/Units 05:02 Sodium 136 (136-145) mEq/L Potassium 3.8 (3.5-4.5) mEq/L Chloride 106 (98-109) mEq/L Carbon Dioxide 21 (19-29) mEq/L BUN 14 (8-26) mg/dL Creatinine 1.24 (0.72-1.25) mg/dL Glucose 106 H (70-99) mg/dL Calcium 8.5 L (8.6-10.8) mg/dL Total Bilirubin 1.9 H (0.2-1.2) mg/dL AST 21 (5-34) Units/L ALT 22 (0-55) Units/L Alkaline Phosphatase 61 (38-126) Units/L Albumin 2.3 L (3.5-5.0) g/dL - VTE Documentation of Mechanical Device: Intermittent pneumatic compression device Consult Discharge Plan - Plan Referrals: NO,PCP [Primary Care Provider] - - Attending Attestation I examined this patient and my medical decision-making was reviewed with the OVEN UNLOADER/PA/Advanced Practice Nurse/Resident Physician. I agree with the documented findings, disposition and treatment plan as described except to the extent set forth below.
--- NOTE | 2016-06-06 11:00 | General Surgery Progress Note ---
Date of Encounter: 06/06/16 Time of Encounter: 10:58 - Assessment and Plan (1) Acute gangrenous appendicitis with perforation and peritonitis Current Visit: Yes Status: Acute POD #1, Laparoscopic appendectomy Pt. tolerated the procedure well. The surgeon noted that the distal half of the appendix was very edematous, swollen, black and friable. And the appendix had perforated and was gangrenous. This pt. is at risk for developing post-op ileus and/or intrabdominal abscesses CAS-drain in place: draining yellowish fluid No bowel sounds appreciated this am. No flatus or bm per patient. TMAX o/n 99.8, WBC 9.4 Plan: NPO, IVF NS@125ml/hr, pain control, antiemetics, levoflaxacin (d/t penicillin allergy), pepcid, SCD's. Subjective Patient reports: still having pain, flatus, no bowel movement, nausea Narrative: Patient seen and examined. Feeling a little better today, but still very sore. Having mild nausea, but no vomiting. He is passing flatus but has not had a BM yet. Objective Vital Signs - Last 8 Hours Temp Pulse Resp BP Pulse Ox 06/06/16 08:50 95 06/06/16 07:36 99.0 F 97 16 147/89 95 06/06/16 05:20 98.7 F 102 20 132/83 93 Intake and Output 06/05/16 06/06/16 06/06/16 23:59 07:59 15:59 Intake Total 100 / 100 1140 / 1140 0 / 0 Output Total 60 / 60 415 / 415 0 / 0 Balance 40 / 40 725 / 725 0 / 0 Intake: IV Fluids 100 / 100 1100 / 1100 0.9 % Sodium Chloride 1, 1000 / 1000 000 ML @ 125 mls/hr IVC . Q8H [facility] Rx#:[id number] Flagyl 500 MG/100 ML 500 100 / 100 100 / 100 mg In 100 ml @ 100 mls/hr IVPB Q8HR [facility] Rx#: [id number] Oral 0 / 0 40 / 40 0 / 0 Output: Urine 400 / 400 0 / 0 Wound Drainage 60 / 60 15 / 15 0 / 0 Left Lower Abdomen 60 / 60 15 / 15 0 / 0 Other: Meal NPO NPO breakfast Stool Size Large # Voids 1 Weight 73.5 kg Blood Glucose* 113 112 Patient Weight 06/06/16 23:59 Weight 73.5 kg - Labs 06/06/16 05:02 06/06/16 05:02 Diabetes panel 06/06/16 Range/Units 05:02 Sodium 136 (136-145) mEq/L Potassium 3.8 (3.5-4.5) mEq/L Chloride 106 (98-109) mEq/L Carbon Dioxide 21 (19-29) mEq/L BUN 14 (8-26) mg/dL Creatinine 1.24 (0.72-1.25) mg/dL Glucose 106 H (70-99) mg/dL Calcium 8.5 L (8.6-10.8) mg/dL AST 21 (5-34) Units/L ALT 22 (0-55) Units/L Alkaline Phosphatase 61 (38-126) Units/L Albumin 2.3 L (3.5-5.0) g/dL Calcium panel 06/06/16 Range/Units 05:02 Calcium 8.5 L (8.6-10.8) mg/dL Albumin 2.3 L (3.5-5.0) g/dL Pituitary panel 06/06/16 Range/Units 05:02 Sodium 136 (136-145) mEq/L Potassium 3.8 (3.5-4.5) mEq/L Chloride 106 (98-109) mEq/L Carbon Dioxide 21 (19-29) mEq/L BUN 14 (8-26) mg/dL Creatinine 1.24 (0.72-1.25) mg/dL Glucose 106 H (70-99) mg/dL Calcium 8.5 L (8.6-10.8) mg/dL Adrenal panel 06/06/16 Range/Units 05:02 Sodium 136 (136-145) mEq/L Potassium 3.8 (3.5-4.5) mEq/L Chloride 106 (98-109) mEq/L Carbon Dioxide 21 (19-29) mEq/L BUN 14 (8-26) mg/dL Creatinine 1.24 (0.72-1.25) mg/dL Glucose 106 H (70-99) mg/dL Calcium 8.5 L (8.6-10.8) mg/dL Total Bilirubin 1.9 H (0.2-1.2) mg/dL AST 21 (5-34) Units/L ALT 22 (0-55) Units/L Alkaline Phosphatase 61 (38-126) Units/L Albumin 2.3 L (3.5-5.0) g/dL - VTE Documentation of Mechanical Device: Intermittent pneumatic compression device Consult Discharge Plan - Plan Referrals: NO,PCP [Primary Care Provider] -
--- NOTE | 2016-06-06 18:19 | Internal Med Progress Note ---
Date of Encounter: 06/06/16 Time of Encounter: 10:00 - Assessment and plan (1) Tobacco abuse Current Visit: Yes Status: Acute Assessment and plan: Transdermal nicotine replacement therapy. (2) Abdominal pain Current Visit: Yes Status: Acute Assessment and plan: We will treat him with IV Dilaudid. IV Zofran for nausea. He requires high doses of IV opiates for treatment of pain and therefore is at high risk for morbidity mortality and complications. Qualifiers: Abdominal location: left lower quadrant Qualified Code(s): R10.32 - Left lower quadrant pain (3) Acute gangrenous appendicitis with perforation and peritonitis Current Visit: Yes Status: Acute Assessment and plan: Postop management per surgery. (4) Postoperative ileus Current Visit: Yes Status: Acute (5) DVT prophylaxis Current Visit: Yes Status: Acute Assessment and plan: Subcutaneous heparin. - Subjective Interval history: Patient reports severe abdominal pain, improved with IV Dilaudid, dull and aching, he states that he has not passed gas today. Denies any associated vomiting, has mild nausea, no fever. - Constitutional Vitals: Temp Pulse Resp BP Pulse Ox 98.8 F 82 18 139/92 93 06/06/16 15:32 06/06/16 15:32 06/06/16 15:32 06/06/16 15:32 06/06/16 15:32 General appearance: Present: A&O X 3, pleasant, no acute distress - Eye Eye exam: Present: PERRL, conjuntiva pink, sclera anicteric Pupils: Present: PERRL - Respiratory Respiratory exam: Present: CTAB. Absent: accessory muscle use, rales, rhonchi, wheezes - Cardiovascular Cardiovascular exam: Present: RRR, +S1, +S2. Absent: diastolic murmur, gallop, rubs, systolic murmur - GI/Abdominal GI/Abdominal exam: Present: diminished bowel sounds, firm, hypoactive bowel sounds, tenderness, no peritoneal signs (Is fairly firm,) - Extremities Exam Extremities exam: Present: warm, radial pulses palpable and symetrical. Absent : calf tenderness, cyanotic, pedal edema - Skin Skin exam: Present: dry, intact Internal Medicine: Result - Labs CBC & Chem 7: 06/06/16 05:02 06/06/16 05:02 Labs: Short CBC 06/06/16 Range/Units 05:02 WBC 12.5 H (4.3-11.1) K/mcL Hgb 11.7 L (12.9-16.9) g/dL Hct 35.9 L (37.5-50.1) % Plt Count 333 (140-400) K/mcL Neutrophils # 10.3 H (1.6-8.9) K/mcL BMP 06/06/16 05:02 Sodium 136 Potassium 3.8 Chloride 106 Carbon Dioxide 21 BUN 14 Creatinine 1.24 Glucose 106 H Calcium 8.5 L Liver Function 06/06/16 Range/Units 05:02 Total Bilirubin 1.9 H (0.2-1.2) mg/dL AST 21 (5-34) Units/L ALT 22 (0-55) Units/L Alkaline Phosphatase 61 (38-126) Units/L Albumin 2.3 L (3.5-5.0) g/dL - Impressions Impressions KUB X-Ray 06/06/16 08:55 IMPRESSION: 1. There is still contrast noted in the colon, related to the recent CT examination on 06/03/2016. This may be related to an ileus. 2. No evidence of bowel obstruction. 3. There is a drainage catheter noted along the left side of the abdomen, extending towards the midline, likely related to recent surgery. D/ / 06/06/2016 10:13:28 Arun Nick MD / taylor Interpreting Provider: Arun Nick MD - VTE Documentation of Mechanical Device: Intermittent pneumatic compression device Consult Discharge Plan - Plan Referrals: NO,PCP [Primary Care Provider] -
[2016-06-07] MEDS: *HR* HYDROmorphone 2 MG/ML SYRINGE IVP PRN ×7 (01:27→22:11)
[2016-06-07] MEDS: MetroNIDAZOLE 500 MG/100 ML 500 MG/100 ML BAG IVPB SCH ×3 (01:27→15:42)
[2016-06-07 04:20] LABS: Hematocrit 34.1 % (37.5-50.1); Hemoglobin 11.2 g/dL (12.9-16.9); Mean Corpuscular HGB Conc 32.8 g/dL (31.6-35.5); Mean Corpuscular Hemoglobin 28.2 pg (28.0-33.3); Mean Corpuscular Volume 85.9 fL (83.0-100.0); Mean Platelet Volume 8.8 fL (9.4-12.4); Platelet Count 344 K/mcL (140-400); Red Blood Count 3.97 M/mcL (4.19-5.50)
[2016-06-07 04:38] LABS: Alanine Aminotransferase 19 Units/L (0-55); Albumin 2.5 g/dL (3.5-5.0); Albumin/Globulin Ratio 0.9 (1.1-2.2); Alkaline Phosphatase 62 Units/L (38-126); Aspartate Amino Transferase 18 Units/L (5-34); BUN/Creatinine Ratio 11 (6-26); Bilirubin,Total 1.4 mg/dL (0.2-1.2); Blood Urea Nitrogen 11 mg/dL (8-26); Calcium 8.3 mg/dL (8.6-10.8); Carbon Dioxide 25 mEq/L (19-29); Chloride 104 mEq/L (98-109); Globulin 2.9 g/dL (2.4-3.5); Glucose 114 mg/dL (70-99); Magnesium 1.7 mg/dL (1.6-2.6); Osmolality,Calculated 278 (280-300); Phosphorous 2.5 mg/dL (2.3-4.7); Potassium 3.7 mEq/L (3.5-4.5); Sodium 134 mEq/L (136-145); Total Protein 5.4 g/dL (6.0-8.3); eGFR For African Americans > 60 (> 60); eGFR For Non-African Americans > 60 (> 60)
[2016-06-07 04:56] LABS: Eosinophils # 0.1 K/mcL (0.0-0.6); Lymphocytes # 2.5 K/mcL (0.6-4.6); Monocytes # 1.1 K/mcL (0.0-1.3); Neutrophils # 8.7 K/mcL (1.6-8.9); Platelet Estimate Normal (Normal)
[2016-06-07] MEDS: *HR* Heparin 5,000 UNIT/ML VIAL SQ SCH ×2 (06:30→17:48)
[2016-06-07] MEDS: Famotidine 20 MG/2 ML VIAL IVP SCH ×2 (06:30→17:48)
--- NOTE | 2016-06-07 08:11 | General Surgery Progress Note ---
Date of Encounter: 06/07/16 Time of Encounter: 12:30 - Assessment and Plan (1) Acute gangrenous appendicitis with perforation and peritonitis Current Visit: Yes Status: Acute POD #3 Laparoscopic appendectomy He has not tolerated advancement of diet to clear liquids. Denies nausea this am but is nauseated now. Hypoactive bowel sounds heard on exam. He is passing flatus but not stooling yet. IV fluids- 50ml/hr IV antibiotics- levaquin and flagyl (day 3) WBC 9.4>12.5>12.4 D/t his gangrenous, perforated appendicits he is at risk for developing intrabdominal abscesses. He was afebrile o/n and wbc is stable last 24hrs. we will obtain an abdomen/ pelvic CT w po contrast only tomorrow to r/o abscess. Supportive care/pain control, serial abdominal exams, clear liquid diet, IVF , Increase activity as tolerated, IS every 1 hours while awake, Repeat am labs (2) Postoperative ileus Current Visit: Yes Status: Acute He is having bowel sounds and passing flatus now He is tolerating clear liquid diet If nausea/vomiting begin may require gastric decompression with NG tube postoperative ileus is a completely expected outcome given his surgical findings and this was discussed with patient immediately after surgery will repeat CT abdomen tomorrow am, oral contrast only given kidney dz (3) Leukocytosis Current Visit: Yes Status: Acute continue abx,, trend Qualifiers: Leukocytosis type: unspecified Qualified Code(s): D72.829 - Elevated white blood cell count, unspecified Subjective Narrative: Patient seen and examined. Still having expected post-op pain. States it is slightly decreased from yesterday. He is now passing flatus but has not had a bm yet. WBC 12.4 and stable since yesterday. Afebrile overnight. passing flatus, no bm, tried some clears and feels bloated and is nauseated pain is improved overall though Objective Vital Signs - Last 8 Hours Temp Pulse Resp BP Pulse Ox 06/07/16 07:56 98.9 F 88 14 130/86 94 06/07/16 03:50 98.7 F 92 14 134/84 94 Intake and Output 06/06/16 06/07/16 06/07/16 23:59 07:59 15:59 Intake Total 1100 / 1100 100 / 100 Output Total 0 / 0 445 / 445 Balance 1100 / 1100 -345 / -345 Intake: IV Fluids 1100 / 1100 100 / 100 0.9 % Sodium Chloride 1, 1000 / 1000 000 ML @ 125 mls/hr IVC . Q8H [facility]ANNAN Rx#:[id number] Flagyl 500 MG/100 ML 500 100 / 100 100 / 100 mg In 100 ml @ 100 mls/hr IVPB Q8HR [facility]AN[facility]N Rx#: [id number] Oral 0 / 0 0 / 0 Output: Urine 0 / 0 425 / 425 Wound Drainage Left Lower Abdomen Other: Weight 73.6 kg Blood Glucose* 90 Patient Weight 06/07/16 23:59 Weight 73.6 kg - General physical appearance well developed, moderate distress - Eyes PERRL, normal ocular movement - ENT normal mucosa, atraumatic, normocephalic - Neck Neck exam: trachea midline - Respiratory normal expansion, normal respiratory effort - Cardiovascular Cardiovascular exam: Present: RRR - Abdomen Abdomen: Present: soft, distended, tender (mildly). Absent: guarding, rebound Abdominal Tenderness: diffusely - Incision Incision: Present: clean and dry, intact - Integumentary no rash, no growths - Neurologic CN 2-12 grossly intact - Musculoskeletal normal posture - Psychiatric oriented to time, speech is normal, memory intact - Additional Exam - General physical appearance well developed, well nourished, no distress - Eyes normal ocular movement - ENT normal mucosa, atraumatic, normocephalic - Neck Neck exam: trachea midline - Respiratory normal respiratory effort, clear to auscultation - Cardiovascular Cardiovascular exam: Present: RRR - Abdomen Abdomen: Present: bowel sounds present (minimal, hypoactive), soft, distended, tender (expected post-operative tenderness), Abdominal CAS drain - 35 out yesterday - serosanguinious - Incision Incision: Present: clean and dry, intact - Neurologic CN 2-12 grossly intact Short CBC 06/07/16 Range/Units 03:53 WBC 12.4 H (4.3-11.1) K/mcL Hgb 11.2 L (12.9-16.9) g/dL Hct 34.1 L (37.5-50.1) % Plt Count 344 (140-400) K/mcL Neutrophils # 8.7 (1.6-8.9) K/mcL BMP 06/07/16 Range/Units 03:53 Sodium 134 L (136-145) mEq/L Potassium 3.7 (3.5-4.5) mEq/L Chloride 104 (98-109) mEq/L Carbon Dioxide 25 (19-29) mEq/L BUN 11 (8-26) mg/dL Creatinine 1.04 (0.72-1.25) mg/dL Glucose 114 H (70-99) mg/dL Calcium 8.3 L (8.6-10.8) mg/dL Liver Function 06/07/16 Range/Units 03:53 Total Bilirubin 1.4 H (0.2-1.2) mg/dL AST 18 (5-34) Units/L ALT 19 (0-55) Units/L Alkaline Phosphatase 62 (38-126) Units/L Albumin 2.5 L (3.5-5.0) g/dL Vital Signs Temp Pulse Resp BP Pulse Ox 06/07/16 10:55 98.7 F 83 16 147/94 97 06/07/16 07:56 98.9 F 88 14 130/86 94 06/07/16 03:50 98.7 F 92 14 134/84 94 06/07/16 00:04 98.9 F 88 14 142/91 95 06/06/16 20:02 98.6 F 89 14 146/90 96 06/06/16 15:32 98.8 F 82 18 139/92 93 Intake and Output 06/06/16 06/07/16 06/07/16 23:59 07:59 15:59 Intake Total 1100 / 1100 100 / 100 250 / 250 Output Total 0 / 0 445 / 445 0 / 0 Balance 1100 / 1100 -345 / -345 250 / 250 Intake: IV Fluids 1100 / 1100 100 / 100 250 / 250 0.9 % Sodium Chloride 1, 1000 / 1000 000 ML @ 125 mls/hr IVC . Q8H [facility]ANNA[facility] Rx#:[id number] Levaquin 750mg/150 mL 750 150 / 150 mg In 150 ml @ 100 mls/ hr IVPB DAILY [facility] Rx#: [id number] Flagyl 500 MG/100 ML 500 100 / 100 100 / 100 100 / 100 mg In 100 ml @ 100 mls/hr IVPB Q8HR [facility] Rx#: [id number] Oral 0 / 0 0 / 0 0 / 0 Output: Urine 0 / 0 425 / 425 0 / 0 Wound Drainage Left Lower Abdomen Other: Meal Lunch Percent of Meal Consumed 0% Weight 73.6 kg Blood Glucose* 90 Patient Weight 06/07/16 23:59 Weight 73.6 kg - Psychiatric oriented to time, oriented to person, oriented to place, speech is normal, memory intact - Labs 06/07/16 03:53 06/07/16 03:53 Diabetes panel 06/07/16 Range/Units 03:53 Sodium 134 L (136-145) mEq/L Potassium 3.7 (3.5-4.5) mEq/L Chloride 104 (98-109) mEq/L Carbon Dioxide 25 (19-29) mEq/L BUN 11 (8-26) mg/dL Creatinine 1.04 (0.72-1.25) mg/dL Glucose 114 H (70-99) mg/dL Calcium 8.3 L (8.6-10.8) mg/dL AST 18 (5-34) Units/L ALT 19 (0-55) Units/L Alkaline Phosphatase 62 (38-126) Units/L Albumin 2.5 L (3.5-5.0) g/dL Calcium panel 06/07/16 Range/Units 03:53 Calcium 8.3 L (8.6-10.8) mg/dL Phosphorus 2.5 (2.3-4.7) mg/dL Albumin 2.5 L (3.5-5.0) g/dL Pituitary panel 06/07/16 Range/Units 03:53 Sodium 134 L (136-145) mEq/L Potassium 3.7 (3.5-4.5) mEq/L Chloride 104 (98-109) mEq/L Carbon Dioxide 25 (19-29) mEq/L BUN 11 (8-26) mg/dL Creatinine 1.04 (0.72-1.25) mg/dL Glucose 114 H (70-99) mg/dL Calcium 8.3 L (8.6-10.8) mg/dL Adrenal panel 06/07/16 Range/Units 03:53 Sodium 134 L (136-145) mEq/L Potassium 3.7 (3.5-4.5) mEq/L Chloride 104 (98-109) mEq/L Carbon Dioxide 25 (19-29) mEq/L BUN 11 (8-26) mg/dL Creatinine 1.04 (0.72-1.25) mg/dL Glucose 114 H (70-99) mg/dL Calcium 8.3 L (8.6-10.8) mg/dL Total Bilirubin 1.4 H (0.2-1.2) mg/dL AST 18 (5-34) Units/L ALT 19 (0-55) Units/L Alkaline Phosphatase 62 (38-126) Units/L Albumin 2.5 L (3.5-5.0) g/dL - VTE Documentation of Mechanical Device: Intermittent pneumatic compression device Consult Discharge Plan - Plan Referrals: NO,PCP [Primary Care Provider] - - Attending Attestation I examined this patient and my medical decision-making was reviewed with the RELIGION DEPARTMENT CHAIR/PA/Advanced Practice Nurse/Resident Physician. I agree with the documented findings, disposition and treatment plan as described except to the extent set forth below.
[2016-06-07] MEDS ORDERED: 0.9 % Sodium Chloride 1,000 ML IVC SCH (08:15)
[2016-06-07] MEDS: Nicotine 21 MG PATCH.TD24 TD SCH (08:18)
[2016-06-07] MEDS: Levofloxacin 750 MG/150 ML 750 MG/150 ML BAG IVPB SCH (08:23)
[2016-06-07] MEDS: Ondansetron 4 MG/2 ML VIAL IVP PRN ×2 (12:18→20:33)
[2016-06-07] MEDS: *HR* OxyCODONE Immed Rel 5 MG TABLET PO PRN ×2 (15:41→20:27)
[2016-06-07] MEDS: Pantoprazole 40 MG VIAL IVP SCH (15:42)
[2016-06-07] MEDS: *HR* Promethazine 25 MG/ML VIAL IVP PRN (16:32)
--- NOTE | 2016-06-07 18:26 | Internal Med Progress Note ---
Date of Encounter: 06/07/16 Time of Encounter: 11:00 - Assessment and plan (1) Tobacco abuse Current Visit: Yes Status: Acute Assessment and plan: Transdermal nicotine replacement therapy. (2) Abdominal pain Current Visit: Yes Status: Acute Assessment and plan: We will treat him with IV Dilaudid. I will decrease the dose from 1.5 to 1 mg every 4 hours. Add oral oxycodone to start titrating him off IV Dilaudid. IV Zofran for nausea. He requires high doses of IV opiates for treatment of pain and therefore is at high risk for morbidity mortality and complications. Qualifiers: Abdominal location: left lower quadrant Qualified Code(s): R10.32 - Left lower quadrant pain (3) Acute gangrenous appendicitis with perforation and peritonitis Current Visit: Yes Status: Acute Assessment and plan: Patient was started on clears. Advance slowly. Pain and nausea control. (4) Postoperative ileus Current Visit: Yes Status: Acute Assessment and plan: Start clear liquid diet. Trial of orals. (5) DVT prophylaxis Current Visit: Yes Status: Acute Assessment and plan: Subcutaneous heparin. - Subjective Interval history: Patient reports moderate to severe abdominal pain, improved with IV Dilaudid, slightly better from yesterday, he states that he has starting to pass gas today , no bowel movement yet. Denies any associated vomiting, has mild nausea, no fever. - Constitutional Vitals: Temp Pulse Resp BP Pulse Ox 98.4 F 84 14 133/86 97 06/07/16 15:43 06/07/16 15:43 06/07/16 15:43 06/07/16 15:43 06/07/16 15:43 General appearance: Present: A&O X 3, pleasant, no acute distress - Respiratory Respiratory exam: Present: CTAB. Absent: accessory muscle use, rales, rhonchi, wheezes - Cardiovascular Cardiovascular exam: Present: RRR, +S1, +S2, tachycardia. Absent: diastolic murmur, gallop, rubs, systolic murmur - GI/Abdominal GI/Abdominal exam: Present: diminished bowel sounds, normal bowel sounds, soft, no peritoneal signs. Absent: distended, tenderness - Extremities Exam Extremities exam: Present: warm, radial pulses palpable and symetrical. Absent : calf tenderness, cyanotic, pedal edema - Skin Skin exam: Present: dry, intact Internal Medicine: Result - Labs CBC & Chem 7: 06/07/16 03:53 06/07/16 03:53 Labs: Short CBC 06/07/16 Range/Units 03:53 WBC 12.4 H (4.3-11.1) K/mcL Hgb 11.2 L (12.9-16.9) g/dL Hct 34.1 L (37.5-50.1) % Plt Count 344 (140-400) K/mcL Neutrophils # 8.7 (1.6-8.9) K/mcL BMP 06/07/16 03:53 Sodium 134 L Potassium 3.7 Chloride 104 Carbon Dioxide 25 BUN 11 Creatinine 1.04 Glucose 114 H Calcium 8.3 L Liver Function 06/07/16 Range/Units 03:53 Total Bilirubin 1.4 H (0.2-1.2) mg/dL AST 18 (5-34) Units/L ALT 19 (0-55) Units/L Alkaline Phosphatase 62 (38-126) Units/L Albumin 2.5 L (3.5-5.0) g/dL - VTE Documentation of Mechanical Device: Intermittent pneumatic compression device Consult Discharge Plan - Plan Referrals: NO,PCP [Primary Care Provider] -
[2016-06-07] MEDS: 0.9 % Sodium Chloride 1,000 ML IVC SCH (21:18)
[2016-06-08] MEDS: *HR* OxyCODONE Immed Rel 5 MG TABLET PO PRN ×5 (00:23→20:37)
[2016-06-08] MEDS: MetroNIDAZOLE 500 MG/100 ML 500 MG/100 ML BAG IVPB SCH ×4 (00:23→23:13)
[2016-06-08] MEDS: *HR* HYDROmorphone 2 MG/ML SYRINGE IVP PRN ×2 (03:05→07:46)
[2016-06-08 05:22] LABS: Hemoglobin 10.7 g/dL (12.9-16.9); Mean Corpuscular HGB Conc 32.4 g/dL (31.6-35.5); Mean Corpuscular Hemoglobin 27.9 pg (28.0-33.3); Mean Corpuscular Volume 85.9 fL (83.0-100.0); Mean Platelet Volume 9.2 fL (9.4-12.4); Nucleated Red Blood Cells 0.1 /100 WBC (0); Platelet Count 373 K/mcL (140-400); Red Blood Count 3.84 M/mcL (4.19-5.50); Red Cell Distribution Width 13.2 % (11.5-14.5)
[2016-06-08 05:29] LABS: BUN/Creatinine Ratio 10 (6-26); Blood Urea Nitrogen 10 mg/dL (8-26); Calcium 8.5 mg/dL (8.6-10.8); Carbon Dioxide 24 mEq/L (19-29); Chloride 103 mEq/L (98-109); Glucose 88 mg/dL (70-99); Magnesium 1.6 mg/dL (1.6-2.6); Osmolality,Calculated 280 (280-300); Potassium 3.4 mEq/L (3.5-4.5); Sodium 136 mEq/L (136-145); eGFR For African Americans > 60 (> 60); eGFR For Non-African Americans > 60 (> 60)
[2016-06-08] MEDS: Famotidine 20 MG/2 ML VIAL IVP SCH (05:36)
[2016-06-08] MEDS: *HR* Heparin 5,000 UNIT/ML VIAL SQ SCH ×2 (05:37→16:35)
[2016-06-08 06:48] LABS: Eosinophils # 0.6 K/mcL (0.0-0.6); Lymphocytes # 2.9 K/mcL (0.6-4.6); Monocytes # 1.8 K/mcL (0.0-1.3); Neutrophils # 8.2 K/mcL (1.6-8.9)
[2016-06-08 06:49] LABS: Platelet Estimate Normal (Normal); Reactive Lymphocytes Present (Not Present)
[2016-06-08] MEDS: 0.9 % Sodium Chloride 1,000 ML IVC SCH (07:46)
[2016-06-08] MEDS: Pantoprazole 40 MG VIAL IVP SCH (08:33)
[2016-06-08] MEDS: Nicotine 21 MG PATCH.TD24 TD SCH (08:59)
[2016-06-08] MEDS ORDERED: *HR* HYDROmorphone 2 MG/ML SYRINGE IVP PRN (09:21)
[2016-06-08] MEDS: Levofloxacin 750 MG/150 ML 750 MG/150 ML BAG IVPB SCH (10:34)
[2016-06-08] MEDS: D5% in 0.45% NACL 1,000 ML IVC SCH (12:21)
[2016-06-08] MEDS ORDERED: Simethicone 80 MG TAB.CHEW PO PRN (13:41)
--- NOTE | 2016-06-08 14:07 | General Surgery Progress Note ---
Date of Encounter: 06/08/16 Time of Encounter: 12:25 - Assessment and Plan (1) Acute gangrenous appendicitis with perforation and peritonitis Current Visit: Yes Status: Acute POD #4 Laparoscopic appendectomy clear liquids IV fluids- 75ml/hour IV antibiotics- levaquin and flagyl WBC 94>12.5>12.4>13.7 Supportive care/pain control Increase activity as tolerated IS every 1 hours while awake Repeat am labs CT scan complete this am shows post-operative ileus (2) Postoperative ileus Current Visit: Yes Status: Acute High risk for ileus secondary to gangrenous perforated appendicitis CT complete this morning demonstrates likely post-operative ileus Continue clear liquids IV fluids May need NG tube if develops vomiting (3) VIVIAN (acute kidney injury) Current Visit: Yes Status: Acute Slight improvement today Cr 1.27>1.24>1.04>1.05 Continue IV fluids- 75ml/hour Strict I&Os Avoid nephrotoxic medications Repeat am labs patient with baseline CKD (4) Spina bifida Current Visit: Yes Status: Chronic Qualifiers: Spinal region: unspecified Presence of hydrocephalus: without hydrocephalus Qualified Code(s): Q05.9 - Spina bifida, unspecified (5) DVT prophylaxis Current Visit: Yes Status: Acute Heparin 5,000 units SQ twice daily for DVT prophylaxis Increase activity as tolerated (6) Pleural effusion Current Visit: Yes Status: Acute small pleural effusions seen bilaterally aggressive IS scheduled aerosols Subjective Patient reports: no new complaints, feels better, still having pain, pain is less, tolerating liquids well, voiding w/o difficulty, flatus, bowel movement ( X4), afebrile Narrative: still having abdominal distention and nausea, passing flatus, no bm tolerating a little bit of clears, pain really unchanged Objective Vital Signs - Last 8 Hours Temp Pulse Resp BP Pulse Ox 06/08/16 11:33 98.9 F 84 18 142/95 96 06/08/16 07:52 95 06/08/16 07:25 99.1 F 71 16 122/82 95 Intake and Output 06/07/16 06/08/16 06/08/16 23:59 07:59 15:59 Intake Total 100 / 100 1220 / 1220 710 / 710 Output Total / 20 25 / 25 20 / 20 Balance 80 / 80 1195 / 1195 690 / 690 Intake: IV Fluids 100 / 100 1100 / 1100 350 / 350 0.9 % Sodium Chloride 1, 1000 / 1000 100 / 100 000 ML @ 100 mls/hr IVC . Q10H [facility]ANNAN Rx#:[id number] Levaquin 750mg/150 mL 750 150 / 150 mg In 150 ml @ 100 mls/ hr IVPB DAILY [facility] Rx#: [id number] Flagyl 500 MG/100 ML 500 100 / 100 100 / 100 100 / 100 mg In 100 ml @ 100 mls/hr IVPB Q8HR [facility] Rx#: [id number] Oral 120 / 120 360 / 360 Output: Urine 0 / 0 Wound Drainage 25 / 25 20 / 20 Left Lower Abdomen 25 20 / 20 Other: # Voids 1 2 # Bowel Movements 1 Weight 76.8 kg Patient Weight 06/08/16 23:59 Weight 76.8 kg - General physical appearance well developed, well nourished, no distress - Eyes PERRL, normal ocular movement - ENT normal mucosa, atraumatic, normocephalic - Neck Neck exam: trachea midline - Respiratory normal respiratory effort, clear to auscultation - Cardiovascular Cardiovascular exam: Present: RRR - Abdomen Abdomen: Present: bowel sounds present (minimal, hypoactive), soft, tympanic, distended, tender (expected post-operative tenderness), wound (CSA drain to bulb suction with serous drainage noted) - Incision Incision: Present: clean and dry, intact - Neurologic CN 2-12 grossly intact - Musculoskeletal normal gait, normal posture - Psychiatric oriented to time, oriented to person, oriented to place, speech is normal, memory intact - Labs 06/09/16 08:35 06/09/16 08:35 Diabetes panel 06/08/16 Range/Units 04:02 Sodium 136 (136-145) mEq/L Potassium 3.4 L (3.5-4.5) mEq/L Chloride 103 (98-109) mEq/L Carbon Dioxide 24 (19-29) mEq/L BUN 10 (8-26) mg/dL Creatinine 1.05 (0.72-1.25) mg/dL Glucose 88 (70-99) mg/dL Calcium 8.5 L (8.6-10.8) mg/dL Calcium panel 06/08/16 Range/Units 04:02 Calcium 8.5 L (8.6-10.8) mg/dL Pituitary panel 06/08/16 Range/Units 04:02 Sodium 136 (136-145) mEq/L Potassium 3.4 L (3.5-4.5) mEq/L Chloride 103 (98-109) mEq/L Carbon Dioxide 24 (19-29) mEq/L BUN 10 (8-26) mg/dL Creatinine 1.05 (0.72-1.25) mg/dL Glucose 88 (70-99) mg/dL Calcium 8.5 L (8.6-10.8) mg/dL Adrenal panel 06/08/16 Range/Units 04:02 Sodium 136 (136-145) mEq/L Potassium 3.4 L (3.5-4.5) mEq/L Chloride 103 (98-109) mEq/L Carbon Dioxide 24 (19-29) mEq/L BUN 10 (8-26) mg/dL Creatinine 1.05 (0.72-1.25) mg/dL Glucose 88 (70-99) mg/dL Calcium 8.5 L (8.6-10.8) mg/dL - Imaging CT scan - abdomen: report reviewed CT scan - pelvis: report reviewed Additional Studies: Abdomen/Pelvis CT 06/08/16 09:30 IMPRESSION: Postsurgical changes are seen related to appendectomy, with a surgical drain seen in place. No loculated intra- abdominal or pelvic fluid collection is identified to suggest an abscess. Mild ascites, with mild anasarca, and small bilateral pleural effusions. A small amount of ascites tracks into the right inguinal canal. Bibasilar airspace disease likely representing atelectasis. Multiple dilated loops of small bowel are identified, with contrast and air seen in the colon. Changes are likely related to a postoperative ileus. No definite transition point seen to suggest an obstruction. D/ / Kirill Carmen MD / Kirill Carmen MD Interpreting Provider: Kirill Carmen MD - VTE Documentation of Mechanical Device: Intermittent pneumatic compression device Consult Discharge Plan - Plan Referrals: NO,PCP [Primary Care Provider] - - Attending Attestation I examined this patient and my medical decision-making was reviewed with the [employer]IC TEACHER/PA/Advanced Practice Nurse/Resident Physician. I agree with the documented findings, disposition and treatment plan as described except to the extent set forth below. I examined this patient and my medical decision-making was reviewed with the L[employer] S[employer] MUSIC TEACHER/PA/Advanced Practice Nurse/Resident Physician. I agree with the documented findings, disposition and treatment plan as described except to the extent set forth below.
[2016-06-08] MEDS ORDERED: Magnesium Sulfate 2 GM in D5% in Water 100 ML IVPB ONE (14:34)
[2016-06-08] MEDS: Ipratropium/Albuterol Neb 3 ML IH SCH ×3 (15:29→22:54)
[2016-06-08] MEDS: Ondansetron 4 MG/2 ML VIAL IVP PRN (15:31)
--- NOTE | 2016-06-08 17:36 | Internal Med Progress Note ---
Date of Encounter: 06/08/16 Time of Encounter: 13:00 - Assessment and plan (1) Tobacco abuse Current Visit: Yes Status: Acute Assessment and plan: Transdermal nicotine replacement therapy. I advised smoking cessation. (2) Abdominal pain Current Visit: Yes Status: Acute Assessment and plan: We will treat him with IV Dilaudid. I will decrease the dose from 1.5 to 1 mg every 4 hours. Add oral oxycodone to start titrating him off IV Dilaudid. IV Zofran for nausea. He requires high doses of IV opiates for treatment of pain and therefore is at high risk for morbidity mortality and complications. Qualifiers: Abdominal location: left lower quadrant Qualified Code(s): R10.32 - Left lower quadrant pain (3) Acute gangrenous appendicitis with perforation and peritonitis Current Visit: Yes Status: Acute Assessment and plan: Patient was started on clears. Advance slowly. Pain and nausea control. (4) Postoperative ileus Current Visit: Yes Status: Acute Assessment and plan: This is the only active inpatient medical problem which is managed by general surgery. I will sign off. Please reconsult as necessary. (5) DVT prophylaxis Current Visit: Yes Status: Acute Assessment and plan: Subcutaneous heparin. - Subjective Interval history: Patient reports moderate to severe abdominal pain, improved with IV Dilaudid, stable from yesterday, he states that he has starting to pass gas today, no bowel movement yet. He had 2 episodes of vomiting. - Constitutional Vitals: Temp Pulse Resp BP Pulse Ox 98.6 F 96 16 144/83 96 06/08/16 16:03 06/08/16 16:03 06/08/16 16:03 06/08/16 16:03 06/08/16 16:03 General appearance: Present: A&O X 3, pleasant, no acute distress - Respiratory Respiratory exam: Present: CTAB. Absent: accessory muscle use, rales, rhonchi, wheezes - Cardiovascular Cardiovascular exam: Present: RRR, +S1, +S2. Absent: diastolic murmur, gallop, rubs, systolic murmur - GI/Abdominal GI/Abdominal exam: Present: diminished bowel sounds, distended, tenderness, no peritoneal signs. Absent: rebound Internal Medicine: Result - Labs CBC & Chem 7: 06/08/16 04:02 06/08/16 04:02 Labs: Short CBC 06/08/16 Range/Units 04:02 WBC 13.7 H (4.3-11.1) K/mcL Hgb 10.7 L (12.9-16.9) g/dL Hct 33.0 L (37.5-50.1) % Plt Count 373 (140-400) K/mcL Neutrophils # 8.2 (1.6-8.9) K/mcL BMP 06/08/16 04:02 Sodium 136 Potassium 3.4 L Chloride 103 Carbon Dioxide 24 BUN 10 Creatinine 1.05 Glucose 88 Calcium 8.5 L - Impressions Impressions Abdomen/Pelvis CT 06/08/16 09:30 IMPRESSION: Postsurgical changes are seen related to appendectomy, with a surgical drain seen in place. No loculated intra- abdominal or pelvic fluid collection is identified to suggest an abscess. Mild ascites, with mild anasarca, and small bilateral pleural effusions. A small amount of ascites tracks into the right inguinal canal. Bibasilar airspace disease likely representing atelectasis. Multiple dilated loops of small bowel are identified, with contrast and air seen in the colon. Changes are likely related to a postoperative ileus. No definite transition point seen to suggest an obstruction. D/ / Kirill Carmen MD / Kirill Carmen MD Interpreting Provider: Kirill Carmen MD - VTE Documentation of Mechanical Device: Intermittent pneumatic compression device Consult Discharge Plan - Plan Referrals: NO,PCP [Primary Care Provider] -
[2016-06-08] MEDS: *HR* HYDROmorphone (PF) 1 MG/ML SYRINGE IVP PRN (23:13)
[2016-06-09] MEDS: *HR* OxyCODONE Immed Rel 5 MG TABLET PO PRN ×3 (02:06→16:11)
[2016-06-09] MEDS: D5% in 0.45% NACL 1,000 ML IVC SCH (03:21)
[2016-06-09] MEDS: *HR* HYDROmorphone (PF) 1 MG/ML SYRINGE IVP PRN ×5 (03:29→21:39)
[2016-06-09] MEDS: Ipratropium/Albuterol Neb 3 ML IH SCH ×4 (04:05→22:28)
[2016-06-09] MEDS: *HR* Heparin 5,000 UNIT/ML VIAL SQ SCH ×2 (05:37→17:27)
[2016-06-09] MEDS: Ondansetron 4 MG/2 ML VIAL IVP PRN (06:34)
[2016-06-09 08:42] LABS: Hematocrit 31.7 % (37.5-50.1); Hemoglobin 10.4 g/dL (12.9-16.9); Immature Platelets 0.9 % (1.1-6.1); Mean Corpuscular HGB Conc 32.8 g/dL (31.6-35.5); Mean Corpuscular Hemoglobin 28.2 pg (28.0-33.3); Mean Corpuscular Volume 85.9 fL (83.0-100.0); Mean Platelet Volume 8.3 fL (9.4-12.4); Platelet Count 449 K/mcL (140-400); Red Blood Count 3.69 M/mcL (4.19-5.50); Red Cell Distribution Width 13.5 % (11.5-14.5)
[2016-06-09 08:56] LABS: BUN/Creatinine Ratio 5 (6-26); Calcium 8.5 mg/dL (8.6-10.8); Carbon Dioxide 25 mEq/L (19-29); Chloride 104 mEq/L (98-109); Glucose 127 mg/dL (70-99); Osmolality,Calculated 285 (280-300); Potassium 3.5 mEq/L (3.5-4.5); Sodium 138 mEq/L (136-145); eGFR For African Americans > 60 (> 60); eGFR For Non-African Americans > 60 (> 60)
[2016-06-09 08:58] LABS: Blood Urea Nitrogen 5 mg/dL (8-26)
[2016-06-09 09:12] LABS: Lymphocytes # 3.1 K/mcL (0.6-4.6); Monocytes # 0.8 K/mcL (0.0-1.3); Neutrophils # 8.1 K/mcL (1.6-8.9); Reactive Lymphocytes Present (Not Present)
[2016-06-09 09:13] LABS: Platelet Estimate Normal (Normal); Polychromasia 1+ (Not Present)
[2016-06-09] MEDS: Pantoprazole 40 MG VIAL IVP SCH (09:40)
[2016-06-09] MEDS: MetroNIDAZOLE 500 MG/100 ML 500 MG/100 ML BAG IVPB SCH (09:41)
[2016-06-09] MEDS: Levofloxacin 750 MG/150 ML 750 MG/150 ML BAG IVPB SCH (09:46)
[2016-06-09] MEDS: Nicotine 21 MG PATCH.TD24 TD SCH (09:49)
[2016-06-09] MEDS: Fluconazole 100 MG/50 ML 100 MG/50 ML BAG IVPB SCH (11:59)
--- NOTE | 2016-06-09 14:08 | General Surgery Progress Note ---
Date of Encounter: 06/09/16 Time of Encounter: 14:00 - Assessment and Plan (1) Acute gangrenous appendicitis with perforation and peritonitis Current Visit: Yes Status: Acute POD #5 Laparoscopic appendectomy clear liquids PICC line placement Start TPN today with total fluid rate being goal for TPN IV antibiotics- stopped Added Difllucan today WBC 94>12.5>12.4>13.7>12.7 with 6 bands Supportive care/pain control Increase activity as tolerated IS every 1 hours while awake Repeat am labs (2) Postoperative ileus Current Visit: Yes Status: Acute High risk for ileus secondary to gangrenous perforated appendicitis, results not expected CT yesterday morning demonstrates likely post-operative ileus Continue clear liquids Start TPN today- [employer] travel counselor consulted (total fluid rate will be goal rate of TPN) NG if persistent nausea/vomiting (3) VIVIAN (acute kidney injury) Current Visit: Yes Status: Acute Slight improvement today Cr 1.27>1.24>1.04>1.05>1.02 Continue IV fluids- 75ml/hour Strict I&Os Avoid nephrotoxic medications Repeat am labs (4) Spina bifida Current Visit: Yes Status: Chronic Qualifiers: Spinal region: unspecified Presence of hydrocephalus: without hydrocephalus Qualified Code(s): Q05.9 - Spina bifida, unspecified (5) DVT prophylaxis Current Visit: Yes Status: Acute Heparin 5,000 units SQ twice daily for DVT prophylaxis Increase activity as tolerated Subjective Patient reports: no new complaints, still having pain, voiding w/o difficulty, flatus (minimal with bowel movements), bowel movement (X1 this morning), nausea (occasional), vomiting (X1 this morning), afebrile Narrative: still distended, passing flatus and having bm some nausea but tolerated some clears Objective Vital Signs - Last 8 Hours Temp Pulse Resp BP Pulse Ox 06/09/16 11:44 98.8 F 93 14 134/79 06/09/16 11:26 15 97 06/09/16 06:30 98.2 F 91 14 119/75 97 Intake and Output 06/08/16 06/09/16 06/09/16 23:59 07:59 15:59 Intake Total 1250 / 1250 1100 / 1100 590 / 590 Output Total 5 / 5 0 / 0 40 / 40 Balance 1245 / 1245 1100 / 1100 550 / 550 Intake: IV Fluids 200 / 200 1100 / 1100 50 / 50 D5% And 0.45% Nacl 1000 1000 / 1000 Ml Bag 1,000 ML @ 75 mls/ hr IVC .[id number] [facility] Rx#: [id number] Diflucan 100 MG/50 ML 100 50 / 50 mg In 50 ml @ 50 mls/hr IVPB DAILY [facility] Rx#: [id number] Flagyl 500 MG/100 ML 500 100 / 100 100 / 100 mg In 100 ml @ 100 mls/hr IVPB Q8HR [facility] Rx#: [id number] Potassium Chloride 10 mEq 100 / 100 /100mL 10 meq In 100 ml @ 100 mls/hr IVPB Q1H [facility] Rx#:[id number] Oral 1050 / 1050 540 / 540 Output: Urine 0 / 0 0 / 0 Wound Drainage 40 / 40 Left Lower Abdomen 40 / 40 Other: Meal Dinner Clears Percent of Meal Consumed 0% # Voids 4 Weight 85.5 kg Patient Weight 06/09/16 23:59 Weight 85.5 kg - General physical appearance well developed, no distress - Eyes normal ocular movement - ENT normal mucosa, atraumatic, normocephalic - Neck Neck exam: trachea midline - Respiratory normal respiratory effort, clear to auscultation - Cardiovascular Cardiovascular exam: Present: RRR - Abdomen Abdomen: Present: bowel sounds present (minimal), soft, distended, tender ( expected post-operative tenderness), wound (CAS drain to bulb suction with serous drainage noted (40ml since midnight)) - Incision Incision: Present: clean and dry, intact - Genitourinary other (scrotal edema) - Integumentary no rash, no growths - Neurologic CN 2-12 grossly intact - Musculoskeletal normal posture - Psychiatric oriented to time, oriented to person, oriented to place, speech is normal, memory intact - Labs 06/09/16 08:35 06/09/16 08:35 Short CBC 06/09/16 Range/Units 08:35 WBC 12.7 H (4.3-11.1) K/mcL Hgb 10.4 L (12.9-16.9) g/dL Hct 31.7 L (37.5-50.1) % Plt Count 449 H (140-400) K/mcL Neutrophils # 8.1 (1.6-8.9) K/mcL BMP 06/09/16 Range/Units 08:35 Sodium 138 (136-145) mEq/L Potassium 3.5 (3.5-4.5) mEq/L Chloride 104 (98-109) mEq/L Carbon Dioxide 25 (19-29) mEq/L BUN 5 L (8-26) mg/dL Creatinine 1.02 (0.72-1.25) mg/dL Glucose 127 H (70-99) mg/dL Calcium 8.5 L (8.6-10.8) mg/dL Vital Signs Temp Pulse Resp BP Pulse Ox 06/09/16 16:17 16 96 06/09/16 15:01 98.7 F 85 16 129/84 96 06/09/16 11:44 98.8 F 93 14 134/79 06/09/16 11:26 15 97 06/09/16 06:30 98.2 F 91 14 119/75 97 06/09/16 04:05 16 96 06/09/16 03:47 99.3 F 88 15 132/80 96 06/08/16 23:05 98.6 F 94 16 124/78 97 06/08/16 22:55 16 97 06/08/16 19:15 98.7 F 92 16 111/68 96 Intake and Output 06/09/16 06/09/16 06/09/16 07:59 15:59 23:59 Intake Total 1100 / 1100 590 / 590 Output Total 0 / 0 40 / 40 0 / 0 Balance 1100 / 1100 550 / 550 0 / 0 Intake: IV Fluids 1100 / 1100 50 / 50 D5% And 0.45% Nacl 1000 1000 / 1000 Ml Bag 1,000 ML @ 75 mls/ hr IVC .[id number] ON LICENSE OF [facility] Rx#: [id number] Diflucan 100 MG/50 ML 100 50 / 50 mg In 50 ml @ 50 mls/hr IVPB DAILY [facility] Rx#: [id number] Flagyl 500 MG/100 ML 500 100 / 100 mg In 100 ml @ 100 mls/hr IVPB Q8HR [facility] Rx#: [id number] Oral 540 / 540 Output: Urine 0 / 0 Wound Drainage 40 / 40 0 / 0 Left Lower Abdomen 40 / 40 0 / 0 Other: Meal Clears Percent of Meal Consumed 0% # Voids 1 # Bowel Movements 0 Weight 85.5 kg Patient Weight 06/09/16 23:59 Weight 85.5 kg - VTE Documentation of Mechanical Device: Intermittent pneumatic compression device Consult Discharge Plan - Plan Referrals: NO,PCP [Primary Care Provider] - - Attending Attestation I examined this patient and my medical decision-making was reviewed with the [employer]SPORT[employer] DRIVER/PA/Advanced Practice Nurse/Resident Physician. I agree with the documented findings, disposition and treatment plan as described except to the extent set forth below. I examined this patient and my medical decision-making was reviewed with the [employer]SPORTATION DRIVER/PA/Advanced Practice Nurse/Resident Physician. I agree with the documented findings, disposition and treatment plan as described except to the extent set forth below.
[2016-06-09] MEDS ORDERED: D10% in Water 500 ML IVC PRN (14:16)
[2016-06-09] MEDS: Bisacodyl 10 MG RECTAL SUPPOSITORY RC ONE ×2 (16:12→18:27)
[2016-06-09] MEDS ORDERED: Clinimix E 5%-15% SOLUTION 2,000 ML with MVI, adult with vitamin K 10 ML IVC SCH (17:00)
[2016-06-10] MEDS: *HR* OxyCODONE Immed Rel 5 MG TABLET PO PRN ×2 (00:20→21:51)
[2016-06-10] MEDS: *HR* HYDROmorphone (PF) 1 MG/ML SYRINGE IVP PRN ×8 (01:26→20:20)
[2016-06-10] MEDS: Ipratropium/Albuterol Neb 3 ML IH SCH ×3 (03:25→15:46)
[2016-06-10 04:43] LABS: Hematocrit 29.5 % (37.5-50.1); Hemoglobin 9.7 g/dL (12.9-16.9); Mean Corpuscular HGB Conc 32.9 g/dL (31.6-35.5); Mean Corpuscular Hemoglobin 28.4 pg (28.0-33.3); Mean Corpuscular Volume 86.3 fL (83.0-100.0); Platelet Count 390 K/mcL (140-400); Red Blood Count 3.42 M/mcL (4.19-5.50); Red Cell Distribution Width 13.8 % (11.5-14.5)
[2016-06-10 04:56] LABS: BUN/Creatinine Ratio 5 (6-26); Calcium 8.6 mg/dL (8.6-10.8); Carbon Dioxide 27 mEq/L (19-29); Chloride 104 mEq/L (98-109); Glucose 126 mg/dL (70-99); Magnesium 1.8 mg/dL (1.6-2.6); Osmolality,Calculated 286 (280-300); Phosphorous 3.7 mg/dL (2.3-4.7); Potassium 3.3 mEq/L (3.5-4.5); Sodium 139 mEq/L (136-145); Triglycerides 72 mg/dL (< 150); eGFR For African Americans > 60 (> 60); eGFR For Non-African Americans > 60 (> 60)
[2016-06-10 05:00] LABS: Blood Urea Nitrogen 4 mg/dL (8-26)
[2016-06-10 05:11] LABS: Lymphocytes # 4.1 K/mcL (0.6-4.6); Neutrophils # 6.4 K/mcL (1.6-8.9); Platelet Estimate Normal (Normal); Polychromasia 1+ (Not Present)
[2016-06-10 05:12] LABS: Hypochromasia Present (Not Present)
[2016-06-10] MEDS: *HR* Heparin 5,000 UNIT/ML VIAL SQ SCH ×2 (06:26→18:01)
[2016-06-10] MEDS ORDERED: Bisacodyl 10 MG RECTAL SUPPOSITORY RC ONE (07:39)
[2016-06-10] MEDS: Pantoprazole 40 MG VIAL IVP SCH (08:50)
[2016-06-10] MEDS: Fluconazole 100 MG/50 ML 100 MG/50 ML BAG IVPB SCH (08:50)
[2016-06-10] MEDS: Nicotine 21 MG PATCH.TD24 TD SCH (08:50)
--- NOTE | 2016-06-10 13:41 | General Surgery Progress Note ---
Date of Encounter: 06/10/16 Time of Encounter: 10:30 - Assessment and Plan (1) Acute gangrenous appendicitis with perforation and peritonitis Current Visit: Yes Status: Acute s/p Laparoscopic appendectomy continue clear liquids contiue TPN continue diflucan ok shower await return bowel function, had bm in last 24 hrs, less distended today Supportive care/pain control Increase activity as tolerated IS every 1 hours while awake Repeat am labs (2) Postoperative ileus Current Visit: Yes Status: Acute High risk for ileus secondary to gangrenous perforated appendicitis, results not expected Continue clear liquids NG if persistent nausea/vomiting (3) VIVIAN (acute kidney injury) Current Visit: Yes Status: Acute resolved, pt with CKD regardless good uop monitor (4) Spina bifida Current Visit: Yes Status: Chronic Qualifiers: Spinal region: unspecified Presence of hydrocephalus: without hydrocephalus Qualified Code(s): Q05.9 - Spina bifida, unspecified (5) DVT prophylaxis Current Visit: Yes Status: Acute Heparin 5,000 units SQ twice daily for DVT prophylaxis Increase activity as tolerated Subjective Patient reports: no new complaints, feels better, still having pain, pain is less, tolerating liquids well, flatus (minimal), bowel movement Objective Vital Signs - Last 8 Hours Temp Pulse Resp BP Pulse Ox 06/10/16 11:00 97.5 F L 89 16 122/77 95 06/10/16 09:06 16 123/77 94 06/10/16 06:29 97.8 F 97 16 123/77 95 Intake and Output 06/09/16 06/10/16 06/10/16 23:59 07:59 15:59 Intake Total 120 / 120 120 / 120 Output Total 20 / 20 20 / 20 0 / 0 Balance 100 / 100 -20 / -20 120 / 120 Intake: Oral 120 / 120 120 / 120 Output: Urine 0 / 0 0 / 0 Wound Drainage 20 / 20 20 / 20 0 / 0 Left Lower Abdomen 20 / 20 20 / 20 0 / 0 Other: Meal Dinner Breakfast Percent of Meal Consumed 5% # Voids 1 1 1 # Bowel Movements 0 0 Blood Glucose* 136 124 - General physical appearance well developed, well nourished - Eyes PERRL, normal ocular movement - ENT normal mucosa, normocephalic - Neck Neck exam: trachea midline - Respiratory normal expansion, clear to auscultation - Cardiovascular Cardiovascular exam: Present: RRR - Abdomen Abdomen: Present: bowel sounds present, soft, distended, tender (minimal) - Incision Incision: Present: clean and dry, intact - Genitourinary other (swollen testicles) - Integumentary no rash, no growths - Neurologic CN 2-12 grossly intact - Musculoskeletal normal gait - Psychiatric oriented to time, oriented to person, memory intact - Labs 06/10/16 04:05 06/10/16 04:05 Vital Signs Temp Pulse Resp BP Pulse Ox 06/10/16 11:00 97.5 F L 89 16 122/77 95 06/10/16 09:06 16 123/77 94 06/10/16 06:29 97.8 F 97 16 123/77 95 06/10/16 04:39 98.0 F 102 18 127/88 94 06/09/16 23:18 98.8 F 94 18 137/83 96 06/09/16 22:28 14 98 06/09/16 20:07 98.7 F 91 16 144/98 93 06/09/16 16:17 16 96 06/09/16 15:01 98.7 F 85 16 129/84 96 Intake and Output 06/09/16 06/10/16 06/10/16 23:59 07:59 15:59 Intake Total 120 / 120 120 / 120 Output Total 20 / 20 20 / 20 0 / 0 Balance 100 / 100 -20 / -20 120 / 120 Intake: Oral 120 / 120 120 / 120 Output: Urine 0 / 0 0 / 0 Wound Drainage 20 / 20 20 / 20 0 / 0 Left Lower Abdomen 20 / 20 20 / 20 0 / 0 Other: Meal Dinner Breakfast Percent of Meal Consumed 5% # Voids 1 1 1 # Bowel Movements 0 0 Blood Glucose* 136 124 Short CBC 06/10/16 Range/Units 04:05 WBC 11.9 H (4.3-11.1) K/mcL Hgb 9.7 L (12.9-16.9) g/dL Hct 29.5 L (37.5-50.1) % Plt Count 390 (140-400) K/mcL Neutrophils # 6.4 (1.6-8.9) K/mcL BMP 06/10/16 Range/Units 04:05 Sodium 139 (136-145) mEq/L Potassium 3.3 L (3.5-4.5) mEq/L Chloride 104 (98-109) mEq/L Carbon Dioxide 27 (19-29) mEq/L BUN 4 L (8-26) mg/dL Creatinine 0.88 (0.72-1.25) mg/dL Glucose 126 H (70-99) mg/dL Calcium 8.6 (8.6-10.8) mg/dL - VTE Documentation of Mechanical Device: Intermittent pneumatic compression device Consult Discharge Plan - Plan Referrals: NO,PCP [Primary Care Provider] -
[2016-06-10] MEDS ORDERED: Clinimix E 5%-15% SOLUTION 2,000 ML with MVI, adult with vitamin K 10 ML IVC SCH (17:00)
[2016-06-10] MEDS ORDERED: Ipratropium/Albuterol Neb 3 ML IH PRN (21:58)
[2016-06-11] MEDS: *HR* HYDROmorphone (PF) 1 MG/ML SYRINGE IVP PRN ×7 (00:10→21:21)
[2016-06-11 03:41] LABS: Hematocrit 31.6 % (37.5-50.1); Hemoglobin 10.3 g/dL (12.9-16.9); Mean Corpuscular HGB Conc 32.6 g/dL (31.6-35.5); Mean Corpuscular Hemoglobin 28.2 pg (28.0-33.3); Mean Corpuscular Volume 86.6 fL (83.0-100.0); Mean Platelet Volume 8.5 fL (9.4-12.4); Nucleated Red Blood Cells 0.2 /100 WBC (0); Platelet Count 428 K/mcL (140-400); Red Blood Count 3.65 M/mcL (4.19-5.50); Red Cell Distribution Width 14.1 % (11.5-14.5)
[2016-06-11 03:53] LABS: Magnesium 1.7 mg/dL (1.6-2.6); Phosphorous 3.9 mg/dL (2.3-4.7)
[2016-06-11 03:54] LABS: BUN/Creatinine Ratio 5 (6-26); Carbon Dioxide 28 mEq/L (19-29); Chloride 102 mEq/L (98-109); Glucose 104 mg/dL (70-99); Osmolality,Calculated 283 (280-300); Potassium 3.7 mEq/L (3.5-4.5); Sodium 138 mEq/L (136-145); eGFR For African Americans > 60 (> 60); eGFR For Non-African Americans > 60 (> 60)
[2016-06-11 03:55] LABS: Blood Urea Nitrogen 4 mg/dL (8-26)
[2016-06-11 04:04] LABS: Eosinophils # 0.3 K/mcL (0.0-0.6); Lymphocytes # 3.3 K/mcL (0.6-4.6); Monocytes # 1.1 K/mcL (0.0-1.3); Neutrophils # 9.1 K/mcL (1.6-8.9); Reactive Lymphocytes Present (Not Present)
[2016-06-11 04:05] LABS: Polychromasia 1+ (Not Present)
[2016-06-11] MEDS: *HR* Heparin 5,000 UNIT/ML VIAL SQ SCH ×2 (06:02→17:51)
[2016-06-11] MEDS: Pantoprazole 40 MG VIAL IVP SCH (09:19)
[2016-06-11] MEDS: Nicotine 21 MG PATCH.TD24 TD SCH (09:21)
[2016-06-11] MEDS: Fluconazole 100 MG/50 ML 100 MG/50 ML BAG IVPB SCH (09:31)
--- NOTE | 2016-06-11 10:00 | General Surgery Progress Note ---
Date of Encounter: 06/11/16 Time of Encounter: 10:00 - Assessment and Plan (1) Acute gangrenous appendicitis with perforation and peritonitis Current Visit: Yes Status: Acute s/p Laparoscopic appendectomy -Removed CAS today -Abd pain slightly better this AM, Passing some gas, 4 small BM past 24 hours, continues to have moderate amount of distension and some nausea. Will continue clear liquids today. -continue TPN -WBC 11.9>13.8,4 bands, continue diflucan -ok to shower -Supportive care/pain control -Continue up and OOB as tolerated -IS every 1 hours while awake Repeat am labs (2) Postoperative ileus Current Visit: Yes Status: Acute High risk for ileus secondary to gangrenous perforated appendicitis, results not expected Reports he is passing some gas and had 4 BM past 24 hours, still has some nausea , BS hypoactive but present today Continue clear liquids, Continue Zofran/phenergan PRN nausea (3) VIVIAN (acute kidney injury) Current Visit: Yes Status: Acute resolved, hx CKD Cr. 0.81 today, reports he is urinating without difficulty Will continue to monitor (4) Spina bifida Current Visit: Yes Status: Chronic Qualifiers: Spinal region: unspecified Presence of hydrocephalus: without hydrocephalus Qualified Code(s): Q05.9 - Spina bifida, unspecified (5) DVT prophylaxis Current Visit: Yes Status: Acute Heparin 5,000 units SQ twice daily for DVT prophylaxis Increase activity as tolerated Subjective Narrative: Patient reports he still has some abdominal pain and his belly seems a little more distended today. He has been passing amount of gas and had 4 small bm yesterday evening. He is still mildly nauseated but has done ok sipping on liquids. Denies subjective fevers, chills, sweats, sob, cp. Objective Vital Signs - Last 8 Hours Temp Pulse Resp BP Pulse Ox 06/11/16 06:49 98.4 F 93 16 109/69 95 06/11/16 03:34 98.9 F 94 16 132/91 95 Intake and Output 06/10/16 06/11/16 06/11/16 23:59 07:59 15:59 Intake Total 1437 / 1437 250 / 250 0 / 0 Output Total 20 / 20 0 / 0 Balance 1417 / 1417 250 / 250 0 / 0 Intake: IV Fluids 1197 / 1197 250 / 250 Clinimix E 5%-15% 1197 / 1197 SOLUTION 2,000 ML @ 50 mls/hr IVC .Q24H [facility] with M.v.i. Adult 10 ml Rx#: [id number] Intralipid 20% 250 ML @ 250 / 250 21 mls/hr IVPB DAILY@1700 [facility] Rx#:[id number] Oral 240 / 240 0 / 0 Output: Wound Drainage 20 / 20 0 / 0 Left Lower Abdomen 20 / 20 0 / 0 Other: Meal Dinner Refused Breakfast Tray # Voids 1 1 # Bowel Movements 0 Blood Glucose* 158 111 137 - General physical appearance well nourished, no distress, no pain - Eyes PERRL, normal ocular movement - ENT normal mucosa, no hearing loss, no congestion, atraumatic - Neck Neck exam: trachea midline - Respiratory normal respiratory effort, clear to auscultation - Cardiovascular Cardiovascular exam: Present: RRR, no murmurs/rubs/gallops - Abdomen Abdomen: Present: bowel sounds present (hypoactive), soft, distended, tender ( mild/diffuse). Absent: masses, guarding, rebound, rigid - Incision Incision: Present: clean and dry, intact, approximated. Absent: inflamed, erythema, purulent - Genitourinary other (mild swelling of scrotum) - Integumentary no rash, no growths, no abnormal pigmentation - Neurologic CN 2-12 grossly intact, normal coordination, normal sensation - Musculoskeletal normal posture - Psychiatric oriented to time, oriented to person, oriented to place, speech is normal - Additional Exam CAS drain serous fluid - Labs 06/11/16 03:29 06/11/16 03:29 Short CBC 06/11/16 Range/Units 03:29 WBC 13.8 H (4.3-11.1) K/mcL Hgb 10.3 L (12.9-16.9) g/dL Hct 31.6 L (37.5-50.1) % Plt Count 428 H (140-400) K/mcL Neutrophils # 9.1 H (1.6-8.9) K/mcL BMP 06/11/16 Range/Units 03:29 Sodium 138 (136-145) mEq/L Potassium 3.7 (3.5-4.5) mEq/L Chloride 102 (98-109) mEq/L Carbon Dioxide 28 (19-29) mEq/L BUN 4 L (8-26) mg/dL Creatinine 0.87 (0.72-1.25) mg/dL Glucose 104 H (70-99) mg/dL Calcium 9.0 (8.6-10.8) mg/dL Vital Signs Temp Pulse Resp BP Pulse Ox 06/11/16 06:49 98.4 F 93 16 109/69 95 06/11/16 03:34 98.9 F 94 16 132/91 95 06/11/16 00:57 98.9 F 99 16 138/95 95 06/10/16 20:16 98.8 F 96 16 136/89 97 06/10/16 15:46 16 134/90 98 06/10/16 14:54 97.6 F 97 16 134/90 96 06/10/16 11:00 97.5 F L 89 16 122/77 95 Intake and Output 06/10/16 06/11/16 06/11/16 23:59 07:59 15:59 Intake Total 1437 / 1437 250 / 250 0 / 0 Output Total 20 / 20 0 / 0 Balance 1417 / 1417 250 / 250 0 / 0 Intake: IV Fluids 1197 / 1197 250 / 250 Clinimix E 5%-15% 1197 / 1197 SOLUTION 2,000 ML @ 50 mls/hr IVC .Q24H [facility] with M.v.i. Adult 10 ml Rx#: [id number] Intralipid 20% 250 ML @ 250 / 250 21 mls/hr IVPB DAILY@1700 [facility] Rx#:[id number] Oral 240 / 240 0 / 0 Output: Wound Drainage 20 / 20 0 / 0 Left Lower Abdomen 20 / 20 0 / 0 Other: Meal Dinner Refused Breakfast Tray # Voids 1 1 # Bowel Movements 0 Blood Glucose* 158 111 137 - VTE Documentation of Mechanical Device: Intermittent pneumatic compression device Consult Discharge Plan - Plan Referrals: NO,PCP [Primary Care Provider] -
[2016-06-11] MEDS: *HR* OxyCODONE Immed Rel 5 MG TABLET PO PRN ×2 (10:30→22:36)
[2016-06-11] MEDS ORDERED: Clinimix E 5%-15% SOLUTION 2,000 ML with MVI, adult with vitamin K 10 ML IVC SCH (17:00)
[2016-06-12] MEDS: *HR* HYDROmorphone (PF) 1 MG/ML SYRINGE IVP PRN ×7 (00:11→20:39)
[2016-06-12 03:09] LABS: Basophils % 0.3 %; Eosinophils # 0.1 K/mcL (0.0-0.6); Eosinophils % 0.8 %; Hematocrit 33.4 % (37.5-50.1); Hemoglobin 10.7 g/dL (12.9-16.9); Immature Granulocytes % 4.4 % (0-4); Lymphocytes # 2.6 K/mcL (0.6-4.6); Lymphocytes % 16.8 %; Mean Corpuscular Hemoglobin 27.8 pg (28.0-33.3); Mean Corpuscular Volume 86.8 fL (83.0-100.0); Mean Platelet Volume 8.3 fL (9.4-12.4); Monocytes # 0.7 K/mcL (0.0-1.3); Monocytes % 4.8 %; Neutrophils # 11.1 K/mcL (1.6-8.9); Platelet Count 453 K/mcL (140-400); Red Blood Count 3.85 M/mcL (4.19-5.50); Red Cell Distribution Width 14.4 % (11.5-14.5); Segmented Neutrophils % 72.9 %
[2016-06-12 03:22] LABS: BUN/Creatinine Ratio 12 (6-26); Blood Urea Nitrogen 11 mg/dL (8-26); Calcium 9.2 mg/dL (8.6-10.8); Carbon Dioxide 25 mEq/L (19-29); Chloride 100 mEq/L (98-109); Glucose 107 mg/dL (70-99); Osmolality,Calculated 280 (280-300); Phosphorous 4.1 mg/dL (2.3-4.7); Potassium 4.1 mEq/L (3.5-4.5); Sodium 135 mEq/L (136-145); eGFR For African Americans > 60 (> 60); eGFR For Non-African Americans > 60 (> 60)
[2016-06-12] MEDS: *HR* OxyCODONE Immed Rel 5 MG TABLET PO PRN ×3 (06:03→22:30)
[2016-06-12] MEDS: *HR* Heparin 5,000 UNIT/ML VIAL SQ SCH ×2 (06:04→17:30)
[2016-06-12] MEDS: Nicotine 21 MG PATCH.TD24 TD SCH (08:26)
[2016-06-12] MEDS: Pantoprazole 40 MG VIAL IVP SCH (08:26)
[2016-06-12] MEDS: Ertapenem 1,000 MG in 0.9 % Sodium Chloride Mini Bag 100 ML IVPB SCH ×2 (08:28→10:18)
[2016-06-12] MEDS: Fluconazole 100 MG/50 ML 100 MG/50 ML BAG IVPB SCH (10:16)
--- NOTE | 2016-06-12 12:38 | General Surgery Progress Note ---
Date of Encounter: 06/12/16 Time of Encounter: 10:30 - Assessment and Plan (1) Acute gangrenous appendicitis with perforation and peritonitis Current Visit: Yes Status: Acute POD #8 Laparoscopic appendectomy Start full liquids today Continue TPN at goal rate IV antibiotics- Ertapenem added today Continue diflucan WBC- 13.8>15.3 ID consulted and notified Supportive care/pain control Increase activity as tolerated IS every 1 hours while awake Repeat am labs (2) Postoperative ileus Current Visit: Yes Status: Acute Resolving Advance to full liquids Continue TPN at goal rate (3) VIVIAN (acute kidney injury) Current Visit: Yes Status: Resolved Resolved Cr- 0.91 Avoid nephrotoxic medications Repeat am labs (4) Spina bifida Current Visit: Yes Status: Chronic Qualifiers: Spinal region: unspecified Presence of hydrocephalus: without hydrocephalus Qualified Code(s): Q05.9 - Spina bifida, unspecified (5) DVT prophylaxis Current Visit: Yes Status: Acute Heparin 5,000 units SQ twice daily for DVT prophylaxis Increase activity as tolerated Subjective Patient reports: no new complaints, feels better, still having pain, pain is less, tolerating liquids well (full liquids), voiding w/o difficulty, flatus, bowel movement (last BM 06/11/16), afebrile Objective Vital Signs - Last 8 Hours Temp Pulse Resp BP Pulse Ox 06/12/16 11:26 98.3 F 99 16 124/78 96 06/12/16 04:53 98.3 F 97 18 142/94 96 Intake and Output 06/11/16 06/12/16 06/12/16 23:59 07:59 15:59 Intake Total 2009 250 / 250 150 / 150 Output Total 0 / 0 Balance 2009 250 / 250 150 / 150 Intake: IV Fluids 2009 250 / 250 150 / 150 Clinimix E 5%-15% 2009 SOLUTION 2,000 ML @ 83.3 mls/hr IVC .Q24H [facility] with M.v.i. Adult 10 ml Rx#: [id number] INVanz 1,000 MG In 0.9 % 100 / 100 Sodium Chloride (Mini-Bag +) 100 ML @ 100 mls/hr IVPB DAILY [facility] Rx#: [id number] Intralipid 20% 250 ML @ 250 / 250 21 mls/hr IVPB DAILY@1700 [facility] Rx#:[id number] Diflucan 100 MG/50 ML 100 50 / 50 mg In 50 ml @ 50 mls/hr IVPB DAILY [facility] Rx#: [id number] Output: Urine 0 / 0 Other: # Voids 1 1 Blood Glucose* 108 151 134 - General physical appearance well developed, no distress - Eyes normal ocular movement - ENT normal mucosa, atraumatic, normocephalic - Neck Neck exam: trachea midline - Respiratory normal respiratory effort, clear to auscultation - Cardiovascular Cardiovascular exam: Present: RRR - Abdomen Abdomen: Present: bowel sounds present, soft, distended (improved), tender ( expected post-operative tenderness) - Incision Incision: Present: clean and dry, intact - Genitourinary other (scrotal edema improved) - Integumentary no rash, no growths, no abnormal pigmentation - Neurologic CN 2-12 grossly intact - Musculoskeletal normal gait, normal posture - Psychiatric oriented to time, oriented to person, oriented to place, speech is normal, memory intact - Labs 06/12/16 02:55 06/12/16 02:55 Short CBC 06/12/16 Range/Units 02:55 WBC 15.3 H (4.3-11.1) K/mcL Hgb 10.7 L (12.9-16.9) g/dL Hct 33.4 L (37.5-50.1) % Plt Count 453 H (140-400) K/mcL Neutrophils # 11.1 H (1.6-8.9) K/mcL BMP 06/12/16 Range/Units 02:55 Sodium 135 L (136-145) mEq/L Potassium 4.1 (3.5-4.5) mEq/L Chloride 100 (98-109) mEq/L Carbon Dioxide 25 (19-29) mEq/L BUN 11 (8-26) mg/dL Creatinine 0.91 (0.72-1.25) mg/dL Glucose 107 H (70-99) mg/dL Calcium 9.2 (8.6-10.8) mg/dL Vital Signs Temp Pulse Resp BP Pulse Ox 06/12/16 11:26 98.3 F 99 16 124/78 96 06/12/16 04:53 98.3 F 97 18 142/94 96 06/11/16 20:29 98.6 F 94 18 149/94 98 06/11/16 14:50 98.1 F 93 16 126/81 96 Intake and Output 06/11/16 06/12/16 06/12/16 23:59 07:59 15:59 Intake Total 2009 250 / 250 150 / 150 Output Total 0 / 0 Balance 2009 250 / 250 150 / 150 Intake: IV Fluids 2009 250 / 250 150 / 150 Clinimix E 5%-15% 2009 SOLUTION 2,000 ML @ 83.3 mls/hr IVC .Q24H [facility] with M.v.i. Adult 10 ml Rx#: [id number] INVanz 1,000 MG In 0.9 % 100 / 100 Sodium Chloride (Mini-Bag +) 100 ML @ 100 mls/hr IVPB DAILY [facility] Rx#: [id number] Intralipid 20% 250 ML @ 250 / 250 21 mls/hr IVPB DAILY@1700 [facility] Rx#:[id number] Diflucan 100 MG/50 ML 100 50 / 50 mg In 50 ml @ 50 mls/hr IVPB DAILY [facility] Rx#: [id number] Output: Urine 0 / 0 Other: # Voids 1 1 Blood Glucose* 108 151 134 - VTE Documentation of Mechanical Device: Intermittent pneumatic compression device Consult Discharge Plan - Plan Referrals: NO,PCP [Primary Care Provider] - - Attending Attestation I examined this patient and my medical decision-making was reviewed with the ENERGY ADVISOR/PA/Advanced Practice Nurse/Resident Physician. I agree with the documented findings, disposition and treatment plan as described except to the extent set forth below. I examined this patient and my medical decision-making was reviewed with the ENERGY ADVISOR/PA/Advanced Practice Nurse/Resident Physician. I agree with the documented findings, disposition and treatment plan as described except to the extent set forth below.
--- NOTE | 2016-06-12 13:49 | Infectious Disease Consult ---
Date of Encounter: 06/12/16 Time of Encounter: 13:47 Assessment and Plan (1) Leukocytosis Status: Acute Assessment and plan: Leukocytosis with neutrophilic predominance noted. Previously had bandemia as well. Etiology unclear: unidentified infection/source control vs. ileus vs. other. WBC has been trending up over the past few days. No obvious source of infection. Patient states that clinically he feels better. He has been afebrile. He has no other SIRS criteria. Antibiotics switched to Ertapenem by the primary team. Currently on IV Diflucan and Ertapenem, but not sure what we are treating. Previous CT without contrast on 06/08/16 was negative for acute abdominal pathology to explain the patient's leukocytosis. Recommend repeating CT of the abdomen and pelvis with at least oral contrast. The patient reports a history of kidney issues, but his serum creatinine has normalized with IV fluid hydration. Given that the patient's fluid volume status is improved, we might consider adding IV contrast as well and continue gentle fluid hydration. Will defer to the surgical team. Get blood cultures x 2 sets peripherally and 2 sets from the PICC line now. Check LFTs. Await cultures. Antibiotics as listed below. Repeat CBC with diff in the morning. Qualifiers: Leukocytosis type: unspecified Qualified Code(s): D72.829 - Elevated white blood cell count, unspecified (2) Acute gangrenous appendicitis with perforation and peritonitis Status: Acute Assessment and plan: CT of the abdomen and pelvis 06/03/16 revealed findings compatible with acute appendicitis including dilated appendix, large appendicolith, and adjacent stranding. There was also a moderate volume of free fluid in the pelvis separate from the appendix that was likely reactive. Status post lap appy 06/04/[address] Arredondo. Operative report reviewed. The patient had a perforated, gangrenous appendix. He was started on Levaquin and Flagyl post-op. Both were discontinued 06/09/16 and Diflucan was started. Ertapenem was started this AM due to persistent leukocytosis. Currently, the patient remains on Ertapenem and Diflucan, started per the surgical team. Continue Ertapenem 1 gram IV daily for now. Continue Diflucan, but increase to 200mg IV daily. Repeat CT as discussed above. Duration of treatment depends on the clinical picture. Monitor renal function and dose-adjust antibiotics. (3) VIVIAN (acute kidney injury) Status: Resolved Assessment and plan: Likely secondary to appendicitis and dehydration. Resolved. (4) Abdominal pain Status: Acute Assessment and plan: Secondary to appendicitis. Improved. Patient continues to have expected post-op pain. Pain management as outlined by the surgery team. Qualifiers: Abdominal location: left lower quadrant Qualified Code(s): R10.32 - Left lower quadrant pain (5) Intractable nausea and vomiting Status: Acute Assessment and plan: Secondary to appendicitis. Resolved. Qualifiers: Vomiting type: unspecified Qualified Code(s): R11.2 - Nausea with vomiting , unspecified (6) Postoperative ileus Status: Acute Assessment and plan: Secondary to surgical procedure. Appears improved per patient report. Reports he is passing gas and has had several bowel movements. Reports he has been able to tolerate clear liquids and the surgical team is planning to advance his diet to full liquids today. Could be a contributing factor to the patient's leukocytosis. Management per the surgical team. (7) Spina bifida Status: Chronic Qualifiers: Spinal region: unspecified Presence of hydrocephalus: without hydrocephalus Qualified Code(s): Q05.9 - Spina bifida, unspecified Infectious Disease HPI - Data of Consult Patient: new to practice Consult date: 06/12/16 Requesting Physician: Megan Arredondo MD Primary Care Provider: PCP NO - Consult Narrative Reason for consult: Persistent Leukocytosis History of present illness: Mr. James is a 25 year old male with a past medical history CHF, CVA, MA, CAD , spina bifida. The patient was admitted to the hospital June 02 for abdominal pain and intractable nausea and vomiting. We are consulted June 12 for further evaluation and treatment recommendations are going persistent leukocytosis. The patient's a 25-year-old male with past medical history as stated above. The patient presented to the emergency department with complaints of a 2 day history of left lower quadrant abdominal pain with radiation to his back as well as nausea vomiting and chills. The patient presented to the emergency department and was afebrile and was hemodynamically stable. His white blood cell count was mildly elevated at 12.8 thousand. Basic metabolic panel significant for a acute kidney injury. Urinalysis was obtained that showed some pyuria and leukocyte esterase, but also had many epithelial cells and no bacteria. Urine culture was negative. CT the abdomen and pelvis without contrast was completed and was negative. The patient required multiple doses of antibiotics in the ER and continued to have nausea and vomiting. He was admitted to the hospital for further evaluation and treatment. Upon admission, the patient underwent a repeat CT the abdomen and pelvis with contrast that showed acute appendicitis. Gen. surgery was consulted and the patient was taken to the operating room where he underwent a laparoscopic appendectomy on June [address] Arredondo. The patient was noted to have a gangrenous appendix. He was started on IV Levaquin and Flagyl postoperatively which she was on incisional June 09. Postoperatively, the patient continued to complain of abdominal pain and nausea. A KUB done on June 06 showed an ileus. The patient continued to have worsening leukocytosis and a CT the abdomen and pelvis was repeated on June 08 that confirmed the ileus, but no other acute intra-abdominal process was noted. The patient was started on TPN via a PICC line on June 09. Antibiotics were discontinued on June 09 by the primary team. The patient has had worsening leukocytosis over the past couple of days with a white blood cell count of 15.3 thousand. His acute kidney injury has resolved. Currently, the patient is on IV ertapenem which was started this morning and IV fluconazole which was started on June 09. We've been asked to evaluate and make further recommendations. During my exam today, the patient endorsed a history as stated above. Currently , the patient denies any fevers or chills or rigors. He denies any headache or neck pain. He denies any congestion, earache, or sore throat. He denies any chest pain, shortness of breath, or cough. He denies any nausea, vomiting, diarrhea, or constipation. He does report that he has had a couple of bowel movements over the last few days. He states he is able to tolerate a clear liquid diet and the surgery team is planning on transitioning him to a full liquid diet. He reports some periumbilical abdominal pain that is dull and achy in nature and is non-radiating. He denies any urinary complaints. He denies pain in any of his extremities or back. He denies any oral thrush or new skin lesions. CC: Megan Arredondo MD Past Med Surg Social Fam HX - Past Medical History Attestation: Yes The following information was validated with the patient. Source: patient, old records reviewed, nursing notes reviewed Medical history: CHF, coronary artery disease, CVA, myocardial infarction, renal disease, TIA Psychiatric history: anxiety, bipolar, depression, schizophrenia - Past Surgical History Surgical History: other (wisdom teeth extraction and spinal surgery) - Social History Smoking Status: Current every day smoker Packs per day: 1 Smokeless Tobacco Status: No Alcohol use: none, occasionally Drug use: marijuana Occupational status: unemployed Current living situation: Home - Independent Activity Level: Independent ambulation Recent Out of Country Travel Within the Last 8 Weeks: No Exposure or Possible Exposure to Illness During Travel: No Infectious Disease-CN:Meds Aspirin 325 mg PO DAILY PRN 06/02/16 [History] Allergies latex Allergy (Verified 06/02/16 06:36) Anaphylaxis Penicillins [PCN] Allergy (Verified 06/02/16 06:36) See Comments All systems: reviewed and no additional remarkable complaints except as stated Exam - Constitutional Vitals: Temp Pulse Resp BP Pulse Ox 98.3 F 99 16 124/78 96 06/12/16 11:26 06/12/16 11:26 06/12/16 11:26 06/12/16 11:26 06/12/16 11:26 General appearance: average body habitus, cooperative, no acute distress - Head Head exam: Present: atraumatic, normal inspection, normocephalic - Eye Eye exam: Present: EOMI, normal appearance, PERRL Pupils: Present: normal accommodation - ENT ENT exam: Present: mucous membranes moist - Neck Neck exam: Present: normal inspection - Respiratory Respiratory exam: Present: CTAB. Absent: rales, respiratory distress, rhonchi, wheezes - Cardiovascular Cardiovascular exam: Present: RRR, +S1, +S2 - GI/Abdominal GI/Abdominal exam: Present: distended, normal bowel sounds, soft (Umbilical), tenderness Additional comments: Dressing noted to the previous drain site in the LLQ that is C/D/I. Stab surgical incisions C/D/I without erythema or drainage. - Extremities Exam Extremities exam: Present: normal inspection. Absent: joint swelling, pedal edema, tenderness - Neurological Exam Neurological exam: Present: alert, oriented X3, no focal deficits - Psychiatric Psychiatric exam: Present: normal affect, normal mood - Skin Skin exam: Present: dry, intact, normal color, warm - Additional findings Additional findings: PICC line noted to the RUE With transparent dressing C/D/I. No erythema, warmth , or tenderness noted. Infectious Disease CN: Results - Labs CBC & Chem 7: 06/12/16 02:55 06/12/16 02:55 Cultures: Cultures 06/02/16 03:35 Urine Culture - Final Urine,Clean Catch No pathogens isolated. Serology: Serology 06/02/16 Range/Units 03:35 Urine Color Yellow (Yellow) Urine Clarity Cloudy A (Clear) Urine pH 8.0 (5.0-8.0) pH Units Ur Specific [place] 1.023 (1.010-1.025) Urine Protein Trace (Neg-Trace) mg/dL Urine Glucose (UA) Normal (Normal) mg/dL Urine Ketones 80 H (Negative) mg/dL Urine Blood Negative (Negative) Urine Nitrite Negative (Negative) Urine Bilirubin Negative (Negative) Urine Urobilinogen Normal (Normal) mg/dL Ur Leukocyte Esterase Moderate H (Negative) Urine Microscopic RBC 0-3 (0-3) per hpf Urine Microscopic WBC 30-50 H (0-3) per hpf Ur Squamous Epith Cells Many H (None-Few) per lpf Urine Bacteria None Seen (None-Few) per hpf Hyaline Casts None Seen (None-Few) per lpf Ur Culture Indicated? YES A (NO) - VTE Documentation of Mechanical Device: Intermittent pneumatic compression device Consult Discharge Plan - Plan Referrals: NO,PCP [Primary Care Provider] -
[2016-06-12] MEDS ORDERED: Fluconazole 100 MG/50 ML 100 MG/50 ML BAG IVPB ONE (14:17)
[2016-06-12] MEDS ORDERED: Clinimix E 5%-15% SOLUTION 2,000 ML with MVI, adult with vitamin K 10 ML IVC SCH (17:00)
[2016-06-13] MEDS: *HR* HYDROmorphone (PF) 1 MG/ML SYRINGE IVP PRN ×5 (01:02→22:01)
[2016-06-13] MEDS: *HR* OxyCODONE Immed Rel 5 MG TABLET PO PRN ×2 (04:03→09:18)
[2016-06-13 04:45] LABS: Basophils # 0.1 K/mcL (0.0-0.2); Basophils % 0.3 %; Eosinophils # 0.2 K/mcL (0.0-0.6); Eosinophils % 0.9 %; Hematocrit 33.9 % (37.5-50.1); Immature Granulocytes % 4.4 % (0-4); Lymphocytes # 3.1 K/mcL (0.6-4.6); Lymphocytes % 16.5 %; Mean Corpuscular HGB Conc 32.4 g/dL (31.6-35.5); Mean Corpuscular Hemoglobin 28.3 pg (28.0-33.3); Mean Corpuscular Volume 87.1 fL (83.0-100.0); Mean Platelet Volume 8.5 fL (9.4-12.4); Monocytes # 0.9 K/mcL (0.0-1.3); Neutrophils # 13.5 K/mcL (1.6-8.9); Platelet Count 517 K/mcL (140-400); Red Blood Count 3.89 M/mcL (4.19-5.50); Red Cell Distribution Width 14.6 % (11.5-14.5); Segmented Neutrophils % 72.9 %
[2016-06-13 05:13] LABS: BUN/Creatinine Ratio 15 (6-26); Blood Urea Nitrogen 15 mg/dL (8-26); Calcium 9.3 mg/dL (8.6-10.8); Carbon Dioxide 24 mEq/L (19-29); Chloride 102 mEq/L (98-109); Glucose 117 mg/dL (70-99); Magnesium 2.1 mg/dL (1.6-2.6); Osmolality,Calculated 284 (280-300); Phosphorous 4.6 mg/dL (2.3-4.7); Potassium 4.5 mEq/L (3.5-4.5); Sodium 136 mEq/L (136-145); eGFR For African Americans > 60 (> 60); eGFR For Non-African Americans > 60 (> 60)
[2016-06-13] MEDS: *HR* Heparin 5,000 UNIT/ML VIAL SQ SCH ×2 (06:33→17:37)
[2016-06-13 08:51] LABS: Alanine Aminotransferase 27 Units/L (0-55); Alkaline Phosphatase 74 Units/L (38-126); Aspartate Amino Transferase 35 Units/L (5-34); Bilirubin,Direct 0.3 mg/dL (0.0-0.5); Bilirubin,Indirect 0.3 mg/dL (0.0-1.2); Bilirubin,Total 0.6 mg/dL (0.2-1.2); Globulin 3.1 g/dL (2.4-3.5); Total Protein 6.1 g/dL (6.0-8.3)
[2016-06-13] MEDS: Fluconazole 200 MG/100 ML 200 MG/100 ML BAG IVPB SCH (09:18)
[2016-06-13] MEDS: Ertapenem 1,000 MG in 0.9 % Sodium Chloride Mini Bag 100 ML IVPB SCH (09:18)
[2016-06-13] MEDS: Nicotine 21 MG PATCH.TD24 TD SCH (09:19)
[2016-06-13] MEDS: Pantoprazole 40 MG VIAL IVP SCH (09:19)
--- NOTE | 2016-06-13 10:13 | Infectious Disease Progress No ---
Date of Encounter: 06/13/16 Time of Encounter: 10:11 - Assessment and Plan (1) Leukocytosis Current Visit: Yes Status: Acute Leukocytosis with neutrophilic predominance noted. Previously had bandemia as well. Etiology unclear: unidentified infection/source control vs. ileus vs. other. WBC has been trending up over the past few days. Up to 18 today with neutrophilic predominance. No obvious source of infection. Patient states that clinically he feels better. He has been afebrile. He is a little tachycardic, but no other SIRS criteria. Antibiotics switched to Ertapenem by the primary team. Currently on IV Diflucan and Ertapenem, but not sure what we are treating. Previous CT without contrast on 06/08/16 was negative for acute abdominal pathology to explain the patient's leukocytosis. Recommend repeating CT of the abdomen and pelvis with at least oral contrast. The patient reports a history of kidney issues, but his serum creatinine has normalized with IV fluid hydration. Given that the patient's fluid volume status is improved, we might consider adding IV contrast as well and continue gentle fluid hydration. Will defer to the surgical team. Blood cultures x 2 sets from peripheral stick and 2 sets from PICC line ordered yesterday. Spoke with micro lab and states that only 1 set drawn peripherally and 1 set drawn from the PICC due to nursing cancelling the others. LFTs normal. Await cultures. Antibiotics as listed below. Repeat CBC with diff in the morning. Qualifiers: Leukocytosis type: unspecified Qualified Code(s): D72.829 - Elevated white blood cell count, unspecified (2) Acute gangrenous appendicitis with perforation and peritonitis Current Visit: Yes Status: Acute CT of the abdomen and pelvis 06/03/16 revealed findings compatible with acute appendicitis including dilated appendix, large appendicolith, and adjacent stranding. There was also a moderate volume of free fluid in the pelvis separate from the appendix that was likely reactive. Status post lap appy 06/04/[address] Arredondo. Operative report reviewed. The patient had a perforated, gangrenous appendix. He was started on Levaquin and Flagyl post-op. Both were discontinued 06/09/16 and Diflucan was started. Ertapenem was started this AM due to persistent leukocytosis. Currently, the patient remains on Ertapenem and Diflucan, started per the surgical team. Continue Ertapenem 1 gram IV daily for now. Continue Diflucan 200mg IV daily. Repeat CT as discussed above. Scheduled for 1100 today. Await results. Duration of treatment depends on the clinical picture. Monitor renal function and dose-adjust antibiotics. (3) VIVIAN (acute kidney injury) Current Visit: Yes Status: Resolved Likely secondary to appendicitis and dehydration. Resolved. (4) Abdominal pain Current Visit: Yes Status: Acute Secondary to appendicitis. Improved. Patient continues to have expected post-op pain. Pain management as outlined by the surgery team. Qualifiers: Abdominal location: left lower quadrant Qualified Code(s): R10.32 - Left lower quadrant pain (5) Intractable nausea and vomiting Current Visit: Yes Status: Acute Secondary to appendicitis. Resolved. Qualifiers: Vomiting type: unspecified Qualified Code(s): R11.2 - Nausea with vomiting , unspecified (6) Postoperative ileus Current Visit: Yes Status: Acute Secondary to surgical procedure. Appears improved per patient report. Reports he is passing gas and has had several bowel movements. Reports he has been able to tolerate full liquids. Could be a contributing factor to the patient's leukocytosis. Management per the surgical team. (7) Spina bifida Current Visit: Yes Status: Chronic Qualifiers: Spinal region: unspecified Presence of hydrocephalus: without hydrocephalus Qualified Code(s): Q05.9 - Spina bifida, unspecified - Subjective Interval history: Patient seen and examined. No acute events noted overnight. Patient lying in bed with significant other. Continues to report mild periumbilical pain, dull and achy and non-radiating. Denies fevers or chills or rigors. Denies chest pain , shortness of breath, or cough. Denies nausea, vomiting, or diarrhea. States he has not had a BM since Sunday. Reports he has been tolerating a full liquid diet since yesterday. Denies oral thrush or skin lesions. Denies head, neck, back, or extremity pain. Infect Dis PN-Objective Data - Labs CBC & Chem 7: 06/13/16 04:15 06/13/16 04:15 Labs: Laboratory Results - last 24 hr 06/12/16 06/13/16 06/13/16 02:55 04:15 04:15 WBC 18.6 H RBC 3.89 L Hgb 11.0 L Hct 33.9 L MCV 87.1 MCH 28.3 MCHC 32.4 RDW 14.6 H Plt Count 517 H MPV 8.5 L Immature Gran % 4.4 H Seg Neutrophils % 72.9 Lymphocytes % 16.5 Monocytes % 5.0 Eosinophils % 0.9 Basophils % 0.3 Neutrophils # 13.5 H Lymphocytes # 3.1 Monocytes # 0.9 Eosinophils # 0.2 Basophils # 0.1 Sodium 135 L 136 Potassium 4.1 4.5 Chloride 100 102 Carbon Dioxide 25 24 BUN 11 15 Creatinine 0.91 1.00 Est GFR ( Amer) > 60 > 60 Est GFR (Non-Af Amer) > 60 > 60 BUN/Creatinine Ratio 12 15 Glucose 107 H 117 H POC Glucose Calculated Osmolality 280 284 Calcium 9.2 9.3 Phosphorus 4.1 4.6 Magnesium 2.0 2.1 Total Bilirubin 0.6 Direct Bilirubin 0.3 Indirect Bilirubin 0.3 AST 35 H ALT 27 Alkaline Phosphatase 74 Serum Total Protein 6.1 Albumin 3.0 L Globulin 3.1 Albumin/Globulin Ratio 1.0 L 06/13/16 08:04 WBC RBC Hgb Hct MCV MCH MCHC RDW Plt Count MPV Immature Gran % Seg Neutrophils % Lymphocytes % Monocytes % Eosinophils % Basophils % Neutrophils # Lymphocytes # Monocytes # Eosinophils # Basophils # Sodium Potassium Chloride Carbon Dioxide BUN Creatinine Est GFR ( Amer) Est GFR (Non-Af Amer) BUN/Creatinine Ratio Glucose POC Glucose 124 H Calculated Osmolality Calcium Phosphorus Magnesium Total Bilirubin Direct Bilirubin Indirect Bilirubin AST ALT Alkaline Phosphatase Serum Total Protein Albumin Globulin Albumin/Globulin Ratio Exam - Constitutional Vitals: Temp Pulse Resp BP Pulse Ox 98.1 F 93 16 114/75 96 06/13/16 07:45 06/13/16 07:45 06/13/16 07:45 06/13/16 07:45 06/13/16 07:45 General appearance: average body habitus, cooperative, no acute distress - Head Head exam: Present: atraumatic, normal inspection, normocephalic - Eye Eye exam: Present: EOMI, normal appearance, PERRL Pupils: Present: normal accommodation - ENT ENT exam: Present: mucous membranes moist - Neck Neck exam: Present: normal inspection. Absent: lymphadenopathy, meningismus - Respiratory Respiratory exam: Present: CTAB. Absent: rales, respiratory distress, rhonchi, wheezes - Cardiovascular Cardiovascular exam: Present: RRR, +S1, +S2 - GI/Abdominal GI/Abdominal exam: Present: distended (mild), normal bowel sounds, soft, tenderness (periumbilical area) Additional comments: Dressing to the LLQ C/D/I. Umbilical stab incision noted with wound edges well- approximated with sonia. - Extremities Exam Extremities exam: Present: normal inspection. Absent: joint swelling, pedal edema, tenderness - Neurological Exam Neurological exam: Present: alert, oriented X3, no focal deficits - Psychiatric Psychiatric exam: Present: normal affect, normal mood - Skin Skin exam: Present: dry, intact, normal color, warm - Additional findings Additional findings: PICC Line noted to the RUE with transparent dressing C/D/I. - VTE Documentation of Mechanical Device: Intermittent pneumatic compression device Consult Discharge Plan - Plan Referrals: NO,PCP [Primary Care Provider] -
--- NOTE | 2016-06-13 10:32 | General Surgery Progress Note ---
Date of Encounter: 06/13/16 Time of Encounter: 10:15 - Assessment and Plan (1) Acute gangrenous appendicitis with perforation and peritonitis Current Visit: Yes Status: Acute POD #9 Laparoscopic appendectomy continue full liquids today Continue TPN at goal rate IV antibiotics- Ertapenem added 06/12 Continue diflucan WBC- 13.8>15.3>18.6 CT scan of abdomen/pelvis today ID consulted 06/12 Supportive care/pain control Increase activity as tolerated IS every 1 hours while awake Repeat am labs patient eating regular food girlfriend has been sneaking in for 2 days now, ok to start regular diet DC TPN tomorrow SLIV (2) Postoperative ileus Current Visit: Yes Status: Acute Resolving Continue full liquids Continue TPN at goal rate (3) VIVIAN (acute kidney injury) Current Visit: Yes Status: Resolved Resolved Cr- 0.91>1.00 Avoid nephrotoxic medications Repeat am labs (4) Spina bifida Current Visit: Yes Status: Chronic Qualifiers: Spinal region: unspecified Presence of hydrocephalus: without hydrocephalus Qualified Code(s): Q05.9 - Spina bifida, unspecified (5) DVT prophylaxis Current Visit: Yes Status: Acute Heparin 5,000 units SQ twice daily for DVT prophylaxis Increase activity as tolerated Subjective Patient reports: no new complaints, feels better, still having pain, pain is less, tolerating liquids well (full liquids), voiding w/o difficulty, flatus, bowel movement, afebrile Narrative: patients girlfriend has been sneaking in [employer] and subs for the last 2 days denies nausea less distended passing flatus and having bms Objective Vital Signs - Last 8 Hours Temp Pulse Resp BP Pulse Ox 06/13/16 07:45 98.1 F 93 16 114/75 96 06/13/16 04:28 98.2 F 104 16 118/76 96 Intake and Output 06/12/16 06/13/16 06/13/16 23:59 07:59 15:59 Intake Total 2069 / 2069 250 / 250 120 / 120 Output Total 50 / 50 0 / 0 Balance 2019 250 / 250 120 / 120 Intake: IV Fluids 1949 / 1950 250 / 250 Clinimix E 5%-15% 1900 / 1900 SOLUTION 2,000 ML @ 83.3 mls/hr IVC .Q24H SHANNAN with M.v.i. Adult 10 ml Rx#: [id number] Intralipid 20% 250 ML @ 250 / 250 21 mls/hr IVPB DAILY@1700 SHANNAN Rx#:[id number] Diflucan 100 MG/50 ML 100 50 / 50 mg In 50 ml @ 50 mls/hr IVPB ONCE ONE Rx#: [id number] Oral 120 / 120 120 / 120 Output: Urine 50 / 50 0 / 0 Other: Meal Breakfast Percent of Meal Consumed 100% # Bowel Movements 0 Blood Glucose* 114 124 - General physical appearance well developed, well nourished, no distress - Eyes normal ocular movement - ENT normal mucosa, atraumatic, normocephalic - Neck Neck exam: trachea midline - Respiratory normal respiratory effort, clear to auscultation - Cardiovascular Cardiovascular exam: Present: RRR - Abdomen Abdomen: Present: bowel sounds present, soft, distended (mildly (improved)), tender (expected post-operative tenderness) - Incision Incision: Present: clean and dry, intact - Genitourinary other (scrotal edema) - Integumentary no rash, no growths - Neurologic CN 2-12 grossly intact - Musculoskeletal normal gait, normal posture - Psychiatric oriented to time, oriented to person, oriented to place, speech is normal, memory intact - Labs 06/13/16 04:15 06/14/16 04:25 Diabetes panel 06/12/16 06/13/16 Range/Units 02:55 04:15 Sodium 135 L 136 (136-145) mEq/L Potassium 4.1 4.5 (3.5-4.5) mEq/L Chloride 100 102 (98-109) mEq/L Carbon Dioxide 25 24 (19-29) mEq/L BUN 11 15 (8-26) mg/dL Creatinine 0.91 1.00 (0.72-1.25) mg/dL Glucose 107 H 117 H (70-99) mg/dL Calcium 9.2 9.3 (8.6-10.8) mg/dL AST 35 H (5-34) Units/L ALT 27 (0-55) Units/L Alkaline Phosphatase 74 (38-126) Units/L Albumin 3.0 L (3.5-5.0) g/dL Calcium panel 06/12/16 06/13/16 Range/Units 02:55 04:15 Calcium 9.2 9.3 (8.6-10.8) mg/dL Phosphorus 4.1 4.6 (2.3-4.7) mg/dL Albumin 3.0 L (3.5-5.0) g/dL Pituitary panel 06/12/16 06/13/16 Range/Units 02:55 04:15 Sodium 135 L 136 (136-145) mEq/L Potassium 4.1 4.5 (3.5-4.5) mEq/L Chloride 100 102 (98-109) mEq/L Carbon Dioxide 25 24 (19-29) mEq/L BUN 11 15 (8-26) mg/dL Creatinine 0.91 1.00 (0.72-1.25) mg/dL Glucose 107 H 117 H (70-99) mg/dL Calcium 9.2 9.3 (8.6-10.8) mg/dL Adrenal panel 06/12/16 06/13/16 Range/Units 02:55 04:15 Sodium 135 L 136 (136-145) mEq/L Potassium 4.1 4.5 (3.5-4.5) mEq/L Chloride 100 102 (98-109) mEq/L Carbon Dioxide 25 24 (19-29) mEq/L BUN 11 15 (8-26) mg/dL Creatinine 0.91 1.00 (0.72-1.25) mg/dL Glucose 107 H 117 H (70-99) mg/dL Calcium 9.2 9.3 (8.6-10.8) mg/dL Total Bilirubin 0.6 (0.2-1.2) mg/dL AST 35 H (5-34) Units/L ALT 27 (0-55) Units/L Alkaline Phosphatase 74 (38-126) Units/L Albumin 3.0 L (3.5-5.0) g/dL - VTE Documentation of Mechanical Device: Intermittent pneumatic compression device Consult Discharge Plan - Plan Referrals: NO,PCP [Primary Care Provider] - - Attending Attestation I examined this patient and my medical decision-making was reviewed with the [employer]/PA/Advanced Practice Nurse/Resident Physician. I agree with the documented findings, disposition and treatment plan as described except to the extent set forth below. I examined this patient and my medical decision-making was reviewed with the [employer]/PA/Advanced Practice Nurse/Resident Physician. I agree with the documented findings, disposition and treatment plan as described except to the extent set forth below.
[2016-06-13] MEDS ORDERED: Clinimix E 5%-15% SOLUTION 2,000 ML with MVI, adult with vitamin K 10 ML IVC SCH (17:00)
[2016-06-14] MEDS: *HR* OxyCODONE Immed Rel 5 MG TABLET PO PRN ×3 (00:34→13:50)
[2016-06-14] MEDS: *HR* HYDROmorphone (PF) 1 MG/ML SYRINGE IVP PRN ×3 (04:07→15:49)
[2016-06-14 04:58] LABS: BUN/Creatinine Ratio 15 (6-26); Blood Urea Nitrogen 16 mg/dL (8-26); Calcium 9.5 mg/dL (8.6-10.8); Carbon Dioxide 25 mEq/L (19-29); Chloride 100 mEq/L (98-109); Glucose 136 mg/dL (70-99); Magnesium 2.1 mg/dL (1.6-2.6); Osmolality,Calculated 283 (280-300); Phosphorous 4.6 mg/dL (2.3-4.7); Potassium 4.4 mEq/L (3.5-4.5); Sodium 135 mEq/L (136-145); eGFR For African Americans > 60 (> 60); eGFR For Non-African Americans > 60 (> 60)
[2016-06-14] MEDS: *HR* Heparin 5,000 UNIT/ML VIAL SQ SCH (06:22)
[2016-06-14] MEDS: Nicotine 21 MG PATCH.TD24 TD SCH (08:52)
[2016-06-14] MEDS: Pantoprazole 40 MG VIAL IVP SCH (08:52)
[2016-06-14] MEDS: Ertapenem 1,000 MG in 0.9 % Sodium Chloride Mini Bag 100 ML IVPB SCH (08:52)
--- NOTE | 2016-06-14 09:59 | General Surgery Progress Note ---
Date of Encounter: 06/14/16 Time of Encounter: 09:30 - Assessment and Plan (1) Acute gangrenous appendicitis with perforation and peritonitis Current Visit: Yes Status: Acute POD #10 Laparoscopic appendectomy Regular diet Wean TPN IV antibiotics- Ertapenem added 06/12 Continue diflucan WBC- 13.8>15.3>18.6>pending for today CT scan of abdomen/pelvis 06/13/16- no fluid collections noted ID consulted 06/12 - blood cultures negative Supportive care/pain control Increase activity as tolerated IS every 1 hours while awake Repeat am labs (2) Postoperative ileus Current Visit: Yes Status: Resolved Resolving Regular diet Wean TPN (3) VIVIAN (acute kidney injury) Current Visit: Yes Status: Resolved Resolved Cr- 0.91>1.00>1.09 Avoid nephrotoxic medications Repeat am labs (4) Spina bifida Current Visit: Yes Status: Chronic Qualifiers: Spinal region: unspecified Presence of hydrocephalus: without hydrocephalus Qualified Code(s): Q05.9 - Spina bifida, unspecified (5) DVT prophylaxis Current Visit: Yes Status: Acute Heparin 5,000 units SQ twice daily for DVT prophylaxis Increase activity as tolerated Subjective Patient reports: no new complaints, feels better, still having pain, pain is less, tolerating a regular diet, voiding w/o difficulty, flatus, bowel movement , afebrile Objective Vital Signs - Last 8 Hours Temp Pulse Resp BP Pulse Ox 06/14/16 06:49 98.1 F 90 16 110/74 96 06/14/16 04:53 98.1 F 96 16 106/66 95 Intake and Output 06/13/16 06/14/16 06/14/16 23:59 07:59 15:59 Intake Total 360 / 360 0 / 0 Balance 360 / 360 0 / 0 Intake: Oral 360 / 360 0 / 0 Other: # Voids 2 1 # Bowel Movements 0 Blood Glucose* 124 126 - General physical appearance well developed, no distress - Eyes normal ocular movement - ENT normal mucosa, atraumatic, normocephalic - Neck Neck exam: trachea midline - Respiratory normal respiratory effort, clear to auscultation - Cardiovascular Cardiovascular exam: Present: RRR - Abdomen Abdomen: Present: bowel sounds present, soft, distended (minimal, improved), tender (minimal, expected post-operative tenderness) - Incision Incision: Present: clean and dry, intact - Neurologic CN 2-12 grossly intact - Musculoskeletal normal gait, normal posture - Psychiatric oriented to time, oriented to person, oriented to place, speech is normal, memory intact - Labs 06/13/16 04:15 06/14/16 04:25 Diabetes panel 06/14/16 Range/Units 04:25 Sodium 135 L (136-145) mEq/L Potassium 4.4 (3.5-4.5) mEq/L Chloride 100 (98-109) mEq/L Carbon Dioxide 25 (19-29) mEq/L BUN 16 (8-26) mg/dL Creatinine 1.09 (0.72-1.25) mg/dL Glucose 136 H (70-99) mg/dL Calcium 9.5 (8.6-10.8) mg/dL Calcium panel 06/14/16 Range/Units 04:25 Calcium 9.5 (8.6-10.8) mg/dL Phosphorus 4.6 (2.3-4.7) mg/dL Pituitary panel 06/14/16 Range/Units 04:25 Sodium 135 L (136-145) mEq/L Potassium 4.4 (3.5-4.5) mEq/L Chloride 100 (98-109) mEq/L Carbon Dioxide 25 (19-29) mEq/L BUN 16 (8-26) mg/dL Creatinine 1.09 (0.72-1.25) mg/dL Glucose 136 H (70-99) mg/dL Calcium 9.5 (8.6-10.8) mg/dL Adrenal panel 06/14/16 Range/Units 04:25 Sodium 135 L (136-145) mEq/L Potassium 4.4 (3.5-4.5) mEq/L Chloride 100 (98-109) mEq/L Carbon Dioxide 25 (19-29) mEq/L BUN 16 (8-26) mg/dL Creatinine 1.09 (0.72-1.25) mg/dL Glucose 136 H (70-99) mg/dL Calcium 9.5 (8.6-10.8) mg/dL - VTE Documentation of Mechanical Device: Intermittent pneumatic compression device Consult Discharge Plan - Plan Referrals: NO,PCP [Primary Care Provider] - - Attending Attestation I examined this patient and my medical decision-making was reviewed with the OYSTER PLANTER/PA/Advanced Practice Nurse/Resident Physician. I agree with the documented findings, disposition and treatment plan as described except to the extent set forth below.
[2016-06-14] MEDS: Fluconazole 200 MG/100 ML 200 MG/100 ML BAG IVPB SCH (10:08)
[2016-06-14 10:42] LABS: Basophils # 0.1 K/mcL (0.0-0.2); Basophils % 0.3 %; Eosinophils # 0.1 K/mcL (0.0-0.6); Eosinophils % 0.8 %; Hematocrit 32.9 % (37.5-50.1); Hemoglobin 10.3 g/dL (12.9-16.9); Immature Granulocytes % 2.3 % (0-4); Lymphocytes # 2.2 K/mcL (0.6-4.6); Lymphocytes % 14.2 %; Mean Corpuscular HGB Conc 31.3 g/dL (31.6-35.5); Mean Corpuscular Hemoglobin 28.7 pg (28.0-33.3); Mean Corpuscular Volume 91.6 fL (83.0-100.0); Mean Platelet Volume 9.5 fL (9.4-12.4); Monocytes # 0.8 K/mcL (0.0-1.3); Platelet Count 496 K/mcL (140-400); Red Blood Count 3.59 M/mcL (4.19-5.50); Segmented Neutrophils % 77.4 %
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
[2016-06-14 15:04] VITALS: BP 116/77
--- NOTE | 2016-06-14 15:42 | Discharge Summary ---
Date of Encounter: 06/14/16 Time of Encounter: 15:40 - Discharge Diagnosis (1) Acute gangrenous appendicitis with perforation and peritonitis Priority: Primary Status: Resolved (2) Postoperative ileus Priority: Secondary Status: Resolved (3) VIVIAN (acute kidney injury) Priority: Secondary Status: Resolved (4) Spina bifida Priority: Secondary Status: Chronic Qualifiers: Spinal region: unspecified Presence of hydrocephalus: without hydrocephalus Qualified Code(s): Q05.9 - Spina bifida, unspecified - Discharge Medications Prescriptions: OxyCODONE Immed Rel [Roxicodone 5 MG] 5 mg PO Q4HR PRN #30 tablet PRN Reason: Mild To Moderate Pain Ciprofloxacin HCl [Cipro] 500 mg PO BID #8 tablet Docusate [Colace] 100 mg PO BID PRN #30 capsule PRN Reason: Constipation MetroNIDAZOLE [Flagyl] 500 mg PO TID #12 tablet Home Medications: Aspirin 325 mg PO DAILY PRN 06/02/16 [History] Ciprofloxacin HCl [Cipro] 500 mg PO BID #8 tablet 06/14/16 [Rx] Docusate [Colace] 100 mg PO BID PRN #30 capsule 06/14/16 [Rx] MetroNIDAZOLE [Flagyl] 500 mg PO TID #12 tablet 06/14/16 [Rx] OxyCODONE Immed Rel [Roxicodone 5 MG] 5 mg PO Q4HR PRN #30 tablet 06/14/16 [Rx] Allergies/Adverse Reactions: Allergies latex Allergy (Verified 06/02/16 06:36) Anaphylaxis Penicillins [PCN] Allergy (Verified 06/12/16 14:23) See Comments Unknown reaction. Patient reports had a reaction when he was a child. General Surgery Exam Initial Vital Signs Temp Pulse Resp BP Pulse Ox 98.6 F 85 20 129/107 100 06/02/16 00:23 06/02/16 00:23 06/02/16 00:23 06/02/16 00:23 06/02/16 00:23 - General physical appearance well developed, well nourished, no distress - Eyes normal ocular movement - ENT normal mucosa, atraumatic, normocephalic - Neck trachea midline - Respiratory normal respiratory effort, clear to auscultation - Cardiovascular Cardiovascular exam: Present: RRR, 15, 16 - Abdomen Abdomen general surgery: Present: bowel sounds present, soft, tender (minimal, expected post-operative tenderness) - Incision Incision: Present: clean and dry, intact - Integumentary Integumentary general surgery: Present: warm and dry - Neurologic Present: CN 2-12 grossly intact - Musculoskeletal Present: normal gait, normal posture - Psychiatric Psychiatric general surgery: Present: appropriate, oriented to person, oriented to place, oriented to time, speech is normal, memory intact Date of admission: 06/02/16 08:10 Primary care physician: PCP NO Consults: 06/09/16 14:03 consult to research librarian [Consult to Nutrition] [CONS] Routine Comment: wean TPN to off Consulting Provider: NUTRITION Reason for Dietary Consult: TPN Start and Manage 06/09/16 14:04 Consult to Invasive Line Access Team [CONS] Routine Reason for Consult: PICC line placement Line Type: PICC PICC line indications: Parental nutrition Time Notified: 14:04 Call Completed: Yes 06/09/16 15:03 Consult to Invasive Line Access Team [CONS] Routine Reason for Consult: Picc Line Insertion Line Type: PICC 06/12/16 07:23 Consult to Infectious Diseases [CONS] Routine Consulting Provider: Infectious Disease Maxine Reason for Consult: Abx management Call Completed: No Discharging clinician: Megan Arredondo (Christine Roberts) Anticipated date of discharge: 06/14/16 - Patient Status Disposition: Home, Self-Care Condition: Good Functional capacity at discharge: independent ambulation Overall status at discharge: patient is progressing back to baseline - Discharge Instructions Follow Up With: NO,PCP [Primary Care Provider] - Neda Roberts RESERVATION CLERK [Advanced Practice Nurse] - 06/26/16 10:00 am (surgery follow-up) Additional Instructions: Surgery instructions: #1 May shower, no tub bath X 2 weeks #2 Wash incisions with soap and water and pat dry daily #3 No lifting/pushing/pulling greater than 15 lb. for a total of 2 weeks #4 No driving until off narcotics and able to safely react in the car #5 May climb stairs - Diet and Activity Activity: increase activity as tolerated Diet: advance to your usual diet - Hospital Course Hospital course: Mr. James is a 25 year old male who presented to the hospital for acute onset of abdominal pain. He was taken to the operating room for an acute perforated appendicitis. He underwent a laparoscopic appendectomy. His appendix was perforated and gangrenous. His post-operative course was complicated by a prolonged post-operative ileus and a persistently elevated WBC count. He was given TPN while awaiting return of bowel function. He was maintained on IV antibiotic therapy. Repeat CT scan X 2 shows no evidence of intra-abdominal abscess. Blood culture and urine cultures are negative. His diet has slowly been advanced with return of bowel function and he is currently tolerating a regular diet. Vital signs are stable and he is afebrile. He is voiding and ambulating without difficulty. His WBC count is trending toward normal. We will begin discharge planning to home and plan for outpatient follow-up in the next 10-14 days. Will transition to oral antibiotics and give a total of 14 days of anbitiotics (including inpatient- discussed with ID). F/U labs 5-7 days. - Time Spent with Patient Total time spent providing and/or coordinating discharge services: Less than 30 minutes Labs on day of discharge: Labs from last 24 hours 06/14/16 06/14/16 06/14/16 11:47 10:20 09:30 WBC 15.5 H RBC 3.59 L Hgb 10.3 L Hct 32.9 L MCV 91.6 MCH 28.7 MCHC 31.3 L RDW 15.0 H Plt Count 496 H MPV 9.5 Immature Gran % 2.3 Seg Neutrophils % 77.4 Lymphocytes % 14.2 Monocytes % 5.0 Eosinophils % 0.8 Basophils % 0.3 Neutrophils # 12.0 H Lymphocytes # 2.2 Monocytes # 0.8 Eosinophils # 0.1 Basophils # 0.1 Immature Plt Fraction 3.0 Sodium Potassium Chloride Carbon Dioxide BUN Creatinine Est GFR ( Amer) Est GFR (Non-Af Amer) BUN/Creatinine Ratio Glucose POC Glucose 116 H Calculated Osmolality Calcium Phosphorus Magnesium Specimen Rejected MCV Delta 06/14/16 06/14/16 06/14/16 07:52 04:49 04:25 WBC RBC Hgb Hct MCV MCH MCHC RDW Plt Count MPV Immature Gran % Seg Neutrophils % Lymphocytes % Monocytes % Eosinophils % Basophils % Neutrophils # Lymphocytes # Monocytes # Eosinophils # Basophils # Immature Plt Fraction Sodium 135 L Potassium 4.4 Chloride 100 Carbon Dioxide 25 BUN 16 Creatinine 1.09 Est GFR ( Amer) > 60 Est GFR (Non-Af Amer) > 60 BUN/Creatinine Ratio 15 Glucose 136 H POC Glucose 126 H 142 H Calculated Osmolality 283 Calcium 9.5 Phosphorus 4.6 Magnesium 2.1 Specimen Rejected 06/14/16 06/13/16 06/13/16 00:05 20:01 16:44 WBC RBC Hgb Hct MCV MCH MCHC RDW Plt Count MPV Immature Gran % Seg Neutrophils % Lymphocytes % Monocytes % Eosinophils % Basophils % Neutrophils # Lymphocytes # Monocytes # Eosinophils # Basophils # Immature Plt Fraction Sodium Potassium Chloride Carbon Dioxide BUN Creatinine Est GFR ( Amer) Est GFR (Non-Af Amer) BUN/Creatinine Ratio Glucose POC Glucose 143 H 124 H 136 H Calculated Osmolality Calcium Phosphorus Magnesium Specimen Rejected 06/12/16 06/12/16 15:20 11:39 WBC RBC Hgb Hct MCV MCH MCHC RDW Plt Count MPV Immature Gran % Seg Neutrophils % Lymphocytes % Monocytes % Eosinophils % Basophils % Neutrophils # Lymphocytes # Monocytes # Eosinophils # Basophils # Immature Plt Fraction Sodium Potassium Chloride Carbon Dioxide BUN Creatinine Est GFR ( Amer) Est GFR (Non-Af Amer) BUN/Creatinine Ratio Glucose POC Glucose 131 H 134 H Calculated Osmolality Calcium Phosphorus Magnesium Specimen Rejected Preliminary micro results at discharge 06/12/16 14:35 Blood Culture - Preliminary Peripheral Venipuncture No growth. 06/12/16 14:32 Blood Culture - Preliminary Peripheral Central Cath, Picc No growth. - Impressions ITS Impressions Abdomen/Pelvis CT 06/03/16 16:15 IMPRESSION: 1. Findings compatible with acute appendicitis including dilated appendix, large appendicolith, and adjacent stranding. Moderate volume of free fluid in the pelvis separate from the appendix is likely reactive. No pneumoperitoneum or well-defined drainable fluid collection. 2. Diffuse urinary bladder wall thickening. Recommend correlation with urinalysis. Findings were discussed with the patient's nurse Wilson Manzo of the [facility] at 5:12 pm on 06/03/2016. D/ / Lv Maldonado MD / Lv Maldonado MD Interpreting Provider: Lv Maldonado MD X-Ray 06/06/16 08:55 IMPRESSION: 1. There is still contrast noted in the colon, related to the recent CT examination on 06/03/2016. This may be related to an ileus. 2. No evidence of bowel obstruction. 3. There is a drainage catheter noted along the left side of the abdomen, extending towards the midline, likely related to recent surgery. D/ / 06/06/2016 10:13:28 Arun Nick MD / taylor Interpreting Provider: Arun Nick MD Abdomen/Pelvis CT 06/08/16 09:30 IMPRESSION: Postsurgical changes are seen related to appendectomy, with a surgical drain seen in place. No loculated intra- abdominal or pelvic fluid collection is identified to suggest an abscess. Mild ascites, with mild anasarca, and small bilateral pleural effusions. A small amount of ascites tracks into the right inguinal canal. Bibasilar airspace disease likely representing atelectasis. Multiple dilated loops of small bowel are identified, with contrast and air seen in the colon. Changes are likely related to a postoperative ileus. No definite transition point seen to suggest an obstruction. D/ / Kirill Carmen MD / Kirill Carmen MD Interpreting Provider: Kirill Carmen MD Abdomen/Pelvis CT 06/13/16 10:45 IMPRESSION: 1. Status post appendectomy with interval removal of surgical drain. There are a few mildly dilated loops of small bowel in the lower mid abdomen likely related to postoperative ileus. 2. Small volume free fluid predominately within the pelvis with no new drainable fluid collection. 3. Diffuse circumferential wall thickening of the bladder which is nonspecific. Recommend correlation with urinalysis for a possible cystitis. 4. Interval decrease in size of left pleural effusion. However there are residual bilateral pleural effusions with bibasilar opacities. Although these likely reflect atelectasis, superimposed pneumonia cannot be excluded. D/ / 06/13/2016 11:43:40 Lilly Cruz MD / Peggy Corbett Interpreting Provider: Lilly Cruz MD - Attending Attestation I examined this patient and my medical decision-making was reviewed with the DEHYDROGENATION CONVERTER OPERATOR/PA/Advanced Practice Nurse/Resident Physician. I agree with the documented findings, disposition and treatment plan as described except to the extent set forth below.
== END 2016-06-14 16:33 | disposition home or self-care (01) | DRG 225 ==
LOC: EMEROO 00:20 → 3BNU 00:20 → SUATTDRO 08:10 → 3BNU 08:35 → 3ANU 06-04 11:06
PROVIDERS: ADMIT Hospitalist; ATTEND Surgery

== ENCOUNTER 2018-08-31 06:37 | Observation (INO) ==
[2018-08-31] MEDS ORDERED: Aspirin 81 MG TAB.CHEW PO STA (07:16)
--- NOTE | 2018-08-31 07:17 | Emergency Department Note ---
Disposition Clinical Impression: Acute pyelonephritis, LISETH (acute kidney injury) Disposition: Admitted As Inpatient Condition: Good Time of Disposition: 11:53 General Adult HPI - General Chief complaint: ED Abdominal Pain Stated complaint: Dysuria/Tooth Ache/"heart attack" Time Seen by Provider: 08/31/18 07:01 Source: patient Limitations: no limitations Nursing Notes Reviewed: Yes Vital Signs Reviewed: Yes - History of Present Illness HPI Narrative: Male patient presents emergency complaining of bilateral flank pain for the past 3 weeks. States he has a history of spina bifida and urinary tract infections. States this feels similar. Denies any fevers. States that his by mouth intake has been decreased secondary to the pain in his back. Reports that he has been in kidney failure before but never been on dialysis. Also complaining of left- sided chest pain. 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 When questioned further about this he states he does not have any further information other than the one time it was in [place] and the other time in [facility]. Patient describes a left-sided chest pain as radiating all around his chest., Jumping from spot to spot. Has been constant for the past 3 days. He does also report a shortness of breath associated with this. Patient also complaining of left lower tooth pain. States he did have an abscess. Was treated with antibiotics for this and states it did get better however he still has an ache. Is supposed to have that tooth removed but has not made an appointment. Pain Scale: 10 - Related Data Home Medications Medication Instructions Recorded Confirmed No Known Home Drugs 08/31/18 08/31/18 Allergies Allergy/AdvReac Type Severity Reaction Status Date / Time latex Allergy Rash Verified 05/19/18 18:35 Penicillins [PCN] Allergy See Verified 05/19/18 18:35 Comments All systems ED: reviewed and negative except as stated. Review of Systems: As Per HPI Constitutional: Denies: fever, chills ENT ED: Denies: congestion Cardiovascular: Reports: chest pain (multiple locations in left chest. Constant for the past 3 days). Denies: palpitations, syncope Respiratory: Reports: dyspnea. Denies: cough, sputum production Gastrointestinal: Reports: abdominal pain (superpubic), diarrhea (loose stool yesterday). Denies: nausea, vomiting Genitourinary: Reports: urgency, dysuria, frequency (decreased) Musculoskeletal: Reports: back pain (Bilateral flank pain. Consistent with previous pyelonephritis) Neurological: Reports: weakness Past Medical History - Past Medical History Attestation: Yes The following information was validated with the patient. Source: patient Medical history: Reports: no medical history, CVA, myocardial infarction Surgical history: Reports: appendectomy, other (wisdom teeth extraction and spi nal surgery) Psychiatric history: Reports: anxiety, bipolar, depression, schizophrenia - Social History Smoking Status: Current every day smoker Smokeless Tobacco Status: No Alcohol use: Reports: none Drug use: Reports: marijuana Physical Exam - General Limitations: no limitations General appearance: alert, in no apparent distress - Head Head exam: atraumatic, normocephalic, normal inspection - Eye Eye exam: Present: normal appearance, PERRL, EOMI. Absent: scleral icterus - ENT ENT exam: normal exam, normal oropharynx, mucous membranes moist - Neck Neck exam: Present: normal inspection, full ROM, trachea midline - Chest Chest inspection: Present: normal inspection, symmetric chest wall rise - Respiratory Respiratory exam: Present: normal lung sounds bilaterally. Absent: respiratory distress, accessory muscle use - Cardiovascular Cardiovascular exam: Present: regular rate, normal rhythm, normal heart sounds - Abdominal Exam Abdominal exam: Present: soft, Non-Tender. Absent: tenderness, distention, guarding, rebound, rigidity, organomegaly, Conteh's sign, Rovsing's sign, tenderness at McBurney's Point - Extremities Exam Extremities exam: Present: normal inspection, full ROM, normal capillary refill. Absent: tenderness, pedal edema, calf tenderness - Back Exam Back exam: Present: full ROM, tenderness, CVA tenderness (R), CVA tenderness (L) - Neurological Exam Neurological exam: Present: alert, oriented X3 - Psychiatric Psychiatric exam: Present: normal affect, normal mood - Skin Skin exam: Present: warm, dry, intact, normal color Course Course Narrative: Male patient appears well while sitting at side of the bed. Does appear like he is in some pain. Complaining of bilateral flank pain. Has had previous pyelonephritis states it feels similar. No history of kidney stones. I did chart search patient and his previous microsphere were always negative with no growth on culture. Patient denies any fevers. He is not appear toxic in nature. He is not febrile here. He is not tachycardic. He does report left- sided chest pain along with shortness of breath. He denies a cough. Lung tricia nds are clear heart tones are normal with no murmur noted. Patient is not reproducible with palpation. EKG with no signs of acute ischemia. There has been constant for the past 3 days. We will get one troponin at this time and a chest x-ray. We will also get a d-dimer secondary to his atypical chest pain. Patient points of that he also has had a tooth abscess recently. I did inspect his mouth. Does have a broken tooth to the left bottom molar. Does not appear to be abscess at this time. There is no discharge on palpation. Again patient is not febrile. States he did do a course of antibiotics but has not had it removed. I urged again that he needs to have this addressed by a dentist. - Reevaluation(s) Reevaluation #1: Patient with a GI and urinary tract infection with positive nitrites. We will provide patient with Rocephin in the liter fluid at this time. Patient's d- dimer is elevated at 1400. Secondary to the patient's shortness of breath as well as chest pain and elevated d-dimer. We will pursue a CTA of his chest to rule out a PE. I did discuss this with the patient and the theoretical increase in his Liseth and he expressed he would like to do the PE study. Time: 08:50 Reevaluation #2: Patient with mediastinum. I did discuss this with the cardiothoracic surgeon. We will be admitting to the hospital. - Consultations Consultation #1: I spoke with Dr. Le. He is agreeable to see the patient in the morning. He had no further recommendations. He is agreeable with the antibodies that we choose to cover the urinary tract infection and did not have a specific antibiotic that he would like use. Time: 11:52 Consultation #2: Dr Stern accepted Pt in stable condition. Time: 11:53 Vital Signs Temperature 98.1 F 08/31/18 06:39 Pulse Rate 105 08/31/18 06:39 Respiratory Rate 18 08/31/18 06:39 Blood Pressure 126/82 08/31/18 06:39 O2 Sat by Pulse Oximetry 96 08/31/18 06:39 Temperature 97.5 F L 08/31/18 12:39 Pulse Rate 67 08/31/18 12:39 Respiratory Rate 16 08/31/18 12:39 Blood Pressure 114/67 08/31/18 12:39 O2 Sat by Pulse Oximetry 98 08/31/18 12:39 Oxygen Delivery Oxygen Delivery Room Air Medical Decision Making - Medical Records Medical records reviewed: Yes I reviewed the patient's medical records. - Lab Data Lab results reviewed: Yes I reviewed the patient's lab results. Result diagrams: 08/31/18 07:02 08/31/18 07:02 Lab Results 08/31/18 08/31/18 08/31/18 Range/Units 07:02 07:02 07:50 WBC 9.3 (4.3-11.1) K/mcL RBC 5.68 H (4.19-5.50) M/mcL Hgb 16.4 (12.9-16.9) g/dL Hct 49.6 (37.5-50.1) % MCV 87.3 (83.0-100.0) fL MCH 28.9 (28.0-33.3) pg MCHC 33.1 (31.6-35.5) g/dL RDW 12.1 (11.5-14.5) % Plt Count 341 (140-400) K/mcL MPV 9.2 L (9.4-12.4) fL Immature Gran % 0.2 (0-4) % Seg Neutrophils % 62.2 % Lymphocytes % 27.2 % Monocytes % 8.0 % Eosinophils % 2.0 % Basophils % 0.4 % Neutrophils # 5.8 (1.6-8.9) K/mcL Lymphocytes # 2.5 (0.6-4.6) K/mcL Monocytes # 0.7 (0.0-1.3) K/mcL Eosinophils # 0.2 (0.0-0.6) K/mcL Basophils # 0.0 (0.0-0.2) K/mcL D-Dimer (0-500) ng/mLFEU Sodium 138 (136-145) mEq/L Potassium 4.5 (3.5-5.1) mEq/L Chloride 100 (98-107) mEq/L Carbon Dioxide 21 L (23-29) mEq/L BUN 22 H (6-20) mg/dL Creatinine 1.74 H (0.70-1.30) mg/dL Est GFR ( Amer) 57 L (> 60) Est GFR (Non-Af Amer) 47 L (> 60) BUN/Creatinine Ratio 13 (6-26) Glucose 99 (70-105) mg/dL Calculated Osmolality 289 (280-300) Calcium 10.6 H (8.6-10.3) mg/dL Total Bilirubin 2.3 H (0.3-1.0) mg/dL AST 32 (13-39) Units/L ALT 21 (7-52) Units/L Alkaline Phosphatase 84 (34-104) Units/L Troponin I < 0.03 (< 0.04) ng/mL Serum Total Protein 8.3 (6.4-8.9) g/dL Albumin 5.5 (3.5-5.7) g/dL Globulin 2.8 (2.4-3.5) g/dL Albumin/Globulin Ratio 2.0 (1.1-2.2) Urine Color Yellow (Yellow) Urine Clarity Clear (Clear) Urine pH 8.0 (5.0-8.0) pH Units Ur Specific [place] 1.019 (1.010-1.025) Urine Protein >=300 H (Neg-Trace) mg/dL Urine Glucose (UA) Normal (Normal) mg/dL Urine Ketones 15 H (Negative) mg/dL Urine Blood Negative (Negative) Urine Nitrite Positive A (Negative) Urine Bilirubin Negative (Negative) Urine Urobilinogen Normal (Normal) mg/dL Ur Leukocyte Esterase Large H (Negative) Urine Microscopic RBC 5-15 H (0-3) per hpf Urine Microscopic WBC 50-100 H (0-3) per hpf Ur Squamous Epith Cells Few (None-Few) per lpf Urine Bacteria Many H (None-Few) per hpf Ur Culture Indicated? YES A (NO) 08/31/18 Range/Units 08:10 WBC (4.3-11.1) K/mcL RBC (4.19-5.50) M/mcL Hgb (12.9-16.9) g/dL Hct (37.5-50.1) % MCV (83.0-100.0) fL MCH (28.0-33.3) pg MCHC (31.6-35.5) g/dL RDW (11.5-14.5) % Plt Count (140-400) K/mcL MPV (9.4-12.4) fL Immature Gran % (0-4) % Seg Neutrophils % % Lymphocytes % % Monocytes % % Eosinophils % % Basophils % % Neutrophils # (1.6-8.9) K/mcL Lymphocytes # (0.6-4.6) K/mcL Monocytes # (0.0-1.3) K/mcL Eosinophils # (0.0-0.6) K/mcL Basophils # (0.0-0.2) K/mcL D-Dimer 1426 H (0-500) ng/mLFEU Sodium (136-145) mEq/L Potassium (3.5-5.1) mEq/L Chloride (98-107) mEq/L Carbon Dioxide (23-29) mEq/L BUN (6-20) mg/dL Creatinine (0.70-1.30) mg/dL Est GFR ( Amer) (> 60) Est GFR (Non-Af Amer) (> 60) BUN/Creatinine Ratio (6-26) Glucose (70-105) mg/dL Calculated Osmolality (280-300) Calcium (8.6-10.3) mg/dL Total Bilirubin (0.3-1.0) mg/dL AST (13-39) Units/L ALT (7-52) Units/L Alkaline Phosphatase (34-104) Units/L Troponin I (< 0.04) ng/mL Serum Total Protein (6.4-8.9) g/dL Albumin (3.5-5.7) g/dL Globulin (2.4-3.5) g/dL Albumin/Globulin Ratio (1.1-2.2) Urine Color (Yellow) Urine Clarity (Clear) Urine pH (5.0-8.0) pH Units Ur Specific [place] (1.010-1.025) Urine Protein (Neg-Trace) mg/dL Urine Glucose (UA) (Normal) mg/dL Urine Ketones (Negative) mg/dL Urine Blood (Negative) Urine Nitrite (Negative) Urine Bilirubin (Negative) Urine Urobilinogen (Normal) mg/dL Ur Leukocyte Esterase (Negative) Urine Microscopic RBC (0-3) per hpf Urine Microscopic WBC (0-3) per hpf Ur Squamous Epith Cells (None-Few) per lpf Urine Bacteria (None-Few) per hpf Ur Culture Indicated? (NO) - Radiology Data Radiology results reviewed: Yes I reviewed the patient's radiology results. Chest X-Ray 08/31/18 07:05 IMPRESSION: No acute process. D/ / Flavio Rahman MD / Flavio Rahman MD Interpreting Provider: Flavio Rahman MD Abdomen/Pelvis CT 08/31/18 08:12 IMPRESSION: Cholelithiasis. D/ / Flavio Rahman MD / Flavio Rahman MD Interpreting Provider: Flavio Rahman MD Chest CTA 08/31/18 08:55 IMPRESSION: 1. Negative for pulmonary embolus. 2. Mild pneumomediastinum. D/ / Flaivo Rahman MD / Flavio Rahman MD Interpreting Provider: Flavio Rahman MD - EKG Data EKG #1 EKG attestation: Yes I reviewed and interpreted this EKG. EKG results narrative: Sinus rhythm at a rate of 82. NE interval is 139. QRS duration is 78. QT is 337. QTC is 398 or. No signs of acute ischemia. Good R-wave progression. No signs of WPW or Brugada. No significant change from previous EKG dated 06/02/2016. Critical Care Time Critical Care Time: Yes Total Critical Care Time: 35 Attestation: Critical care time 35 minutes managing patient's LISETH and pneumomediastinum. Attestation Statement - Attestation Attestation: Patient was seen with resident physician. I reviewed the history, physical, assessment and plan, and agree with the findings. I also personally evaluated this patient and had [id number] time with this patient. 27-year-old male presents to the emergency Department chief complaint of toothache chest pain and dysuria. Patient has a history of spina bifida. He has incomplete voiding for which she self catheters. He also says he has had a heart attack sometime ago. He said he basically signed himself out AMA because they had trouble getting a needle stick. Says is not really sure what the extent of that is. He does have a family history of cardiac issues. Patient says his been on an antibiotic recently for tooth infection. Denies fevers or chills. No nausea vomiting. No short of breath. Review of systems as above mid are negative. Physical exam vital signs mild tachycardia otherwise unremarkable. ENT is unremarkable there is no facial swelling or signs of dental abscess. Heart regular rhythm and rate. Lungs are clear. Chest wall is stable. Abdomen is soft and nontender. Extremities unremarkable. Neurologically alert and oriented without focal deficits. Skin no rashes. Psych normal. ED course. We will do cardiac workup on him initial EKG was unremarkable. I will also check a troponin and d-dimer. Patient says he has had 3 days of continuous chest pain so a single troponin should be sufficient to determine if this pain is cardiac in nature. Workup revealed UTI AK I. CT scan revealed a mild pneumomediastinum we did contact CT surgery whoPdid not have any additional recommendations. They are okay with us placing the patient on Rocephin. With the multiple issues this patient had we admitted the patient the hospitalist service for IV antibiotics additional evaluation and treatment as indicated. Patient was hemodynamically stable while here. Agree with the resident physician assessment and plan. ED procedures.I reviewed the patient's EKG as well as the resident physician interpretation and I agree with the findings.
[2018-08-31 07:32] LABS: Basophils % 0.4 %; Eosinophils # 0.2 K/mcL (0.0-0.6); Hematocrit 49.6 % (37.5-50.1); Hemoglobin 16.4 g/dL (12.9-16.9); Immature Granulocytes % 0.2 % (0-4); Lymphocytes # 2.5 K/mcL (0.6-4.6); Lymphocytes % 27.2 %; Mean Corpuscular HGB Conc 33.1 g/dL (31.6-35.5); Mean Corpuscular Hemoglobin 28.9 pg (28.0-33.3); Mean Corpuscular Volume 87.3 fL (83.0-100.0); Mean Platelet Volume 9.2 fL (9.4-12.4); Monocytes # 0.7 K/mcL (0.0-1.3); Neutrophils # 5.8 K/mcL (1.6-8.9); Platelet Count 341 K/mcL (140-400); Red Blood Count 5.68 M/mcL (4.19-5.50); Red Cell Distribution Width 12.1 % (11.5-14.5); Segmented Neutrophils % 62.2 %; White Blood Count 9.3 K/mcL (4.3-11.1)
[2018-08-31] MEDS ORDERED: Lidocaine Jelly 11 ml Syringe MM ONE (07:41)
[2018-08-31 08:04] LABS: Bilirubin,Urine Negative (Negative); Blood,Urine Negative (Negative); Clarity,Urine Clear (Clear); Color,Urine Yellow (Yellow); Glucose,Urine (UA) Normal (Normal); Ketones,Urine 15 mg/dL (Negative); Leukocyte Esterase,Urine Large (Negative); Nitrite,Urine Positive (Negative); Protein,Urine >=300 mg/dL (Neg-Trace); Specific Gravity,Urine 1.019 (1.010-1.025); Urobilinogen,Urine Normal (Normal)
[2018-08-31 08:06] LABS: Alanine Aminotransferase 21 Units/L (7-52); Albumin 5.5 g/dL (3.5-5.7); Alkaline Phosphatase 84 Units/L (34-104); Aspartate Amino Transferase 32 Units/L (13-39); BUN/Creatinine Ratio 13 (6-26); Bilirubin,Total 2.3 mg/dL (0.3-1.0); Blood Urea Nitrogen 22 mg/dL (6-20); Calcium 10.6 mg/dL (8.6-10.3); Carbon Dioxide 21 mEq/L (23-29); Chloride 100 mEq/L (98-107); Globulin 2.8 g/dL (2.4-3.5); Glucose 99 mg/dL (70-105); Osmolality,Calculated 289 (280-300); Potassium 4.5 mEq/L (3.5-5.1); Sodium 138 mEq/L (136-145); Total Protein 8.3 g/dL (6.4-8.9); Troponin I < 0.03 ng/mL (< 0.04); eGFR For African Americans 57 (> 60); eGFR For Non-African Americans 47 (> 60)
[2018-08-31] MEDS ORDERED: cefTRIAXone 1,000 MG in Water for inj. (sterile) 10 ML IVP STA (08:13)
[2018-08-31 08:14] LABS: WBC,Urine 50-100 per hpf (0-3)
[2018-08-31 08:15] LABS: Bacteria,Urine Many per hpf (None-Few); Squamous Epithelial Cell,Urine Few per lpf (None-Few)
[2018-08-31] MEDS ORDERED: 0.9 % Sodium Chloride 1,000 ML IVC ONE (08:25)
[2018-08-31] MEDS ORDERED: Isovue-370 500 ML BOTTLE IVP ONE (08:55)
[2018-08-31] MEDS ORDERED: Ondansetron 4 MG/2 ML VIAL IVP ONE (09:37)
[2018-08-31] MEDS ORDERED: Acetaminophen 325 MG TABLET PO PRN (11:49)
[2018-08-31] MEDS ORDERED: Naloxone 0.4 MG/ML INJ IVP PRN (11:49)
[2018-08-31] MEDS ORDERED: cefTRIAXone 2,000 MG in Water for inj. (sterile) 20 ML IVP SCH (12:00)
--- NOTE | 2018-08-31 12:02 | Internal Med History&Physical ---
Date of Encounter: 08/31/18 Time of Encounter: 12:02 Internal Medicine - H&P: HPI Chief complaint: Flank pain History of present illness: Mr. James is a 27 year old male with PMH of spina bifida , CKD, 2 MIs with no stenting or CABG. and urinary tract infections complaining of bilateral flank pain for the past 3 weeks. the patient denies fever or chills, but he endorse decreased appetite, nausea no vomiting, left chest pain radiating to all around her chest, she denied abdominal pain more on the suprapubic area. The patient also stated that he been having dental abscesses that it was treated as an outpatient by antibiotic and he schedule for follow-up as an outpatient. The patient and manage his study with evidence for pneumomediastinum. cardiothoracic surgery was consulted and they'll see the patient in consult in a.m. The patient was starting in a medical antibiotic with Rocephin and admitted to the hospital for further evaluation and management. Past Med Surg Social Fam HX - Past Medical History Medical history: no medical history, CVA, myocardial infarction Additional medical history: Spina Bifida. [place] x 2. CVA Psychiatric history: anxiety, bipolar, depression, schizophrenia - Past Surgical History Surgical History: appendectomy, other (wisdom teeth extraction and spinal surgery) Additional surgical history: SPINAL BIFIDA - Social History Smoking Status: Current every day smoker Smokeless Tobacco Status: No Alcohol use: none Drug use: marijuana Internal Medicine - H&P: Meds Gabapentin 800 mg PO TID 09/01/18 [History] Cefdinir [Omnicef] 300 mg PO BID 5 Days #10 capsule 09/03/18 [Rx] Allergy/AdvReac Type Severity Reaction Status Date / Time latex Allergy Rash Verified 05/19/18 18:35 Penicillins [PCN] Allergy See Verified 09/01/18 18:20 Comments All Systems PM: A 10-system review of systems was performed and is negative for pertinent findings except as documented above in the HPI. - Constitutional Vitals: Temp Pulse Resp BP Pulse Ox 98.1 F 80 20 100/64 100 08/31/18 06:39 08/31/18 10:37 08/31/18 10:37 08/31/18 10:37 08/31/18 10:37 General appearance: Present: A&O X 3 Exam: ` - Head Head exam: Present: atraumatic, normocephalic - Neck Neck exam general surgery: Present: supple, trachea midline. Absent: lymphadenopathy - Respiratory Respiratory exam: Present: CTAB. Absent: accessory muscle use, rales, rhonchi, wheezes - Cardiovascular Cardiovascular exam: Present: RRR, +S1, +S2. Absent: diastolic murmur, gallop, rubs, systolic murmur - GI/Abdominal GI/Abdominal exam: Present: normal bowel sounds, soft, no peritoneal signs. Absent: distended, tenderness - Extremities Exam Extremities exam: Present: warm, radial pulses palpable and symmetrical. Absent: calf tenderness, cyanotic, pedal edema Internal Med - H&P Results - Labs CBC & Chem 7: 09/03/18 04:35 09/03/18 04:35 Labs: Short CBC 08/31/18 Range/Units 07:02 WBC 9.3 (4.3-11.1) K/mcL Hgb 16.4 (12.9-16.9) g/dL Hct 49.6 (37.5-50.1) % Plt Count 341 (140-400) K/mcL Neutrophils # 5.8 (1.6-8.9) K/mcL BMP 08/31/18 07:02 Sodium 138 Potassium 4.5 Chloride 100 Carbon Dioxide 21 L BUN 22 H Creatinine 1.74 H Glucose 99 Calcium 10.6 H Cardiac Enzymes 08/31/18 Range/Units 07:02 Troponin I < 0.03 (< 0.04) ng/mL Liver Function 08/31/18 Range/Units 07:02 Total Bilirubin 2.3 H (0.3-1.0) mg/dL AST 32 (13-39) Units/L ALT 21 (7-52) Units/L Alkaline Phosphatase 84 (34-104) Units/L Albumin 5.5 (3.5-5.7) g/dL Urine 08/31/18 Range/Units 07:50 Urine Color Yellow (Yellow) Urine Clarity Clear (Clear) Urine pH 8.0 (5.0-8.0) pH Units Ur Specific [place] 1.019 (1.010-1.025) Urine Protein >=300 H (Neg-Trace) mg/dL Urine Glucose (UA) Normal (Normal) mg/dL - Impressions ITS Impressions Chest X-Ray 08/31/18 07:05 IMPRESSION: No acute process. D/ / Flavio Rahman MD / Flavio Rahman MD Interpreting Provider: Flavio Rahman MD Abdomen/Pelvis CT 08/31/18 08:12 IMPRESSION: Cholelithiasis. D/ / Flavio Rahman MD / Flavio Rahman MD Interpreting Provider: Flavio Rahman MD Chest CTA 08/31/18 08:55 IMPRESSION: 1. Negative for pulmonary embolus. 2. Mild pneumomediastinum. D/ / Flavio Rahman MD / Flavio Rahman MD Interpreting Provider: Flavio Rahman MD - Assessment and Plan (1) UTI (urinary tract infection) Status: Acute Assessment and plan: the patient was started on Rocephin given empiric antibiotic, urine culture was obtained and antibiotic will be adjusted accordingly. Qualifiers: Urinary tract infection type: acute cystitis Hematuria presence: with hematuria Qualified Code(s): N30.01 - Acute cystitis with hematuria (2) Acute kidney injury superimposed on chronic kidney disease Status: Chronic Assessment and plan: the patient has history of chronic kidney disease with a baseline creatinine around 1.3, today his creatinine is elevated Most likely secondary to volume depletion in the setting of decreased oral intake as well as underlying infectious process in the setting of urinary tract infection, we will start the patient and isotonic saline for hydration, repeat renal panel continue to monitor I/Os and avoid nephrotoxic (3) Pneumomediastinum Status: Acute Assessment and plan: cardiothoracic surgeon was consulted and they will see the patient in consult. (4) History of myocardial infarction Status: Acute Assessment and plan: the patient has history of myocardial infarction 2, today he's complaining of typical chest pain, EKG was no significant ST-T wave changes and troponin within normal limits, without trend cardiac enzymes and repeat EKG (5) Spina bifida Status: Chronic Qualifiers: Spinal region: unspecified Presence of hydrocephalus: without hydrocephalus Qualified Code(s): Q05.9 - Spina bifida, unspecified (6) DVT prophylaxis Status: Acute Assessment and plan: patient is ambulatory - Time Spent With Patient Total time spent is greater than 50% in coordination of care (as documented) at patient's floor/unit and/or counseling patient:
[2018-08-31] MEDS: *HR* HYDROcodone/Acet 5/325 mg TABLET PO PRN ×2 (13:06→20:25)
[2018-08-31] MEDS: 0.9 % Sodium Chloride 1,000 ML IVC SCH ×2 (13:07→20:25)
[2018-08-31] MEDS: Ondansetron 4 MG/2 ML VIAL IVP PRN (23:22)
[2018-09-01] MEDS: *HR* HYDROcodone/Acet 5/325 mg TABLET PO PRN ×3 (06:30→23:52)
[2018-09-01 06:53] LABS: Basophils % 0.5 %; Eosinophils # 0.2 K/mcL (0.0-0.6); Eosinophils % 3.4 %; Hematocrit 41.5 % (37.5-50.1); Immature Granulocytes % 0.3 % (0-4); Lymphocytes # 2.8 K/mcL (0.6-4.6); Lymphocytes % 46.3 %; Mean Corpuscular HGB Conc 31.6 g/dL (31.6-35.5); Mean Corpuscular Hemoglobin 28.5 pg (28.0-33.3); Mean Corpuscular Volume 90.2 fL (83.0-100.0); Mean Platelet Volume 9.1 fL (9.4-12.4); Monocytes # 0.5 K/mcL (0.0-1.3); Monocytes % 7.9 %; Neutrophils # 2.5 K/mcL (1.6-8.9); Platelet Count 254 K/mcL (140-400); Red Cell Distribution Width 12.1 % (11.5-14.5); Segmented Neutrophils % 41.6 %
[2018-09-01 06:54] LABS: Hemoglobin 13.1 g/dL (12.9-16.9)
[2018-09-01 07:00] LABS: INR 1.1; Prothrombin Time 12.5 Seconds (9.4-12.1)
[2018-09-01 07:03] LABS: Activated Partial Thrombo Time 34.4 Seconds (26.0-36.0)
[2018-09-01 07:11] LABS: Alanine Aminotransferase 16 Units/L (7-52); Albumin 4.3 g/dL (3.5-5.7); Albumin/Globulin Ratio 2.4 (1.1-2.2); Alkaline Phosphatase 63 Units/L (34-104); Aspartate Amino Transferase 20 Units/L (13-39); BUN/Creatinine Ratio 13 (6-26); Bilirubin,Total 1.7 mg/dL (0.3-1.0); Blood Urea Nitrogen 19 mg/dL (6-20); Calcium 9.2 mg/dL (8.6-10.3); Carbon Dioxide 25 mEq/L (23-29); Chloride 104 mEq/L (98-107); Chol/HDL Ratio 3.4 (0-4.9); Cholesterol 134 mg/dL (< 200); Globulin 1.8 g/dL (2.4-3.5); Glucose 76 mg/dL (70-105); HDL Cholesterol 39 mg/dL (40-59); LDL Cholesterol,Calculated 85 mg/dL (0-99); Osmolality,Calculated 289 (280-300); Sodium 139 mEq/L (136-145); Total Protein 6.1 g/dL (6.4-8.9); Triglycerides 49 mg/dL (< 150); eGFR For African Americans > 60 (> 60); eGFR For Non-African Americans > 60 (> 60)
--- NOTE | 2018-09-01 08:48 | Cardiothoracic Consult Note ---
Date of Encounter: 09/01/18 Time of Encounter: 08:46 Assessment and Plan (1) Acquired pneumomediastinum Current Visit: Yes Status: Acute The assessment and plan as outlined above was discussed with the patient and/or family members who expressed understanding and agreement. All questions were answered. I reviewed with the patient bullous emphysema with pneumo mediastinum versus pneumothorax. He explained smoking cessation. We talked about indications for surgery, which there at this time. Patient is happy with discussion. (2) UTI (urinary tract infection) Current Visit: Yes Status: Acute The assessment and plan as outlined above was discussed with the patient and/or family members who expressed understanding and agreement. All questions were answered. Continue hydration. Patient has a history of difficulty voiding and recurrent urinary tract infections due to his spina bifida. The leukocytosis is resolving with current antibiotics. Qualifiers: Urinary tract infection type: acute cystitis Hematuria presence: with hematuria Qualified Code(s): N30.01 - Acute cystitis with hematuria (3) Acute kidney injury superimposed on chronic kidney disease Current Visit: Yes Status: Chronic The assessment and plan as outlined above was discussed with the patient and/or family members who expressed understanding and agreement. All questions were answered. Kidney function is improving with hydration. Patient has had episodes of acute on chronic renal disease due to his spina bifida. He is scheduled to undergo surgery in October at [facility] - History of Present Illness Consult date: 09/01/18 Requesting physician: Alysa Murrieta Consult reason: pneumomediastinum Chief complaint: chest pain History of present illness: Mr. James is a 27 year old male who presented to the [facility] system on 629 with acute onset of mid chest pain that was exacerbated with taking a deep breath. CT scan of the chest demonstrated an acute onset of pneumo mediastinum and the anterior and visceral compartment of the mediastinum. Patient continues to have the pain that brought him to the hospital but it is slightly less intense. Past Med Surg Social Fam HX - Past Medical History Source: patient Medical history: no medical history, CVA, myocardial infarction, other (recurrent UTI) Additional medical history: Spina Bifida. [facility] x 2. CVA Psychiatric history: anxiety, bipolar, depression, schizophrenia - Past Surgical History Surgical History: appendectomy Additional surgical history: SPINAL BIFIDA SX - Social History Smoking Status: Current every day smoker Packs per day: 1-2 cig per day Smokeless Tobacco Status: No Alcohol use: none, rarely Drug use: marijuana - Additional Family History Additional family history: coronary artery disease, cocaine abuse, homicide x 3 Medications and Allergies No Known Home Drugs 08/31/18 [History] Allergy/AdvReac Type Severity Reaction Status Date / Time latex Allergy Rash Verified 05/19/18 18:35 Penicillins [PCN] Allergy See Verified 05/19/18 18:35 Comments All Systems Review: The remainder of the systems were reviewed and are negative - Constitutional Constitutional: anorexia - EENT Eyes: blurred vision - Cardiovascular Cardiovascular: dyspnea on exertion - Respiratory Respiratory: cough, chest wall pain - Genitourinary Genitourinary: dysuria, urinary retention Physical Examination Vital Signs, Last 4 Hours Temp Pulse Resp BP Pulse Ox 09/01/18 06:59 98.0 F 75 16 117/64 100 General: Conversant, No Apparent Distress, Well developed, Well nourished HEENT: Atraumatic, Normocephaly, Trachea midline Neck: No JVD Cardiac: Reg Rate and Rhythm, Normal S1 and S2, No Murmur Lungs: Normal Breath Sounds Neuro: Alert and responsive, No focal deficits noted, Cranial nerves intact, Motor nerves intact, Sensory nerves intact Vascular: Normal capillary refill Abdomen: Soft, Non-tender Skin: No rashes noted on visualized skin Musculoskeletal: No Chest Wall Tenderness Extremities: No Clubbing, No Cyanosis, No Edema, Normal Pulses Results 09/01/18 06:31 09/01/18 06:31 Lab Results, Last 24 hours 09/01/18 09/01/18 09/01/18 06:31 06:31 06:31 WBC 6.0 Hgb 13.1 D Hct 41.5 Plt Count 254 INR 1.1 APTT 34.4 Sodium 139 Potassium 4.0 Chloride 104 Carbon Dioxide 25 BUN 19 Creatinine 1.41 H Glucose 76 Calcium 9.2 Magnesium 2.0 Total Bilirubin 1.7 H AST 20 ALT 16 Alkaline Phosphatase 63 - Imaging Chest Xray: image reviewed Consult Discharge Plan - Plan Referrals: Alina Montague, FELICE [Primary Care Provider] -
[2018-09-01] MEDS: cefTRIAXone 2,000 MG in Water for inj. (sterile) 20 ML IVP SCH (09:20)
[2018-09-01] MEDS: Ondansetron 4 MG/2 ML VIAL IVP PRN ×2 (09:24→17:24)
--- NOTE | 2018-09-01 15:07 | Internal Med Progress Note ---
Hospitalist Progress Note - Encounter Date of Encounter: 09/01/18 Time of Encounter: 14:59 - Subjective Interval History: Pt states he is feeling better. He states he initially had dysuria, urinary frequency, and urgency but all of that has improved. He denies chest pain or SOB. He did report B/L flank pain as well. - Exam Vitals: Temp Pulse Resp BP Pulse Ox 97.9 F 57 16 122/67 99 09/01/18 11:10 09/01/18 11:10 09/01/18 11:10 09/01/18 11:10 09/01/18 11:10 Exam: General appearance: Present: A&O X 3 Head exam: Present: atraumatic, normocephalic Neck exam general surgery: Present: supple, trachea midline. Absent: lymphadenopathy Respiratory exam: Present: CTAB. Absent: accessory muscle use, rales, rhonchi, wheezes Cardiovascular exam: Present: RRR, +S1, +S2. Absent: diastolic murmur, gallop, rubs, systolic murmur GI/Abdominal exam: Present: normal bowel sounds, soft, no peritoneal signs. Absent: distended, tenderness Extremities exam: Present: warm, radial pulses palpable and symmetrical. Absent: calf tenderness, cyanotic, pedal edema. Psych: Mood and affect normal. Skin: warm and dry. + tattoos - Assessment and Plan (1) Acute cystitis without hematuria Current Visit: Yes Status: Acute Assessment and Plan: The patient was started on Rocephin given empiric antibiotic, urine culture was obtained and antibiotic will be adjusted accordingly. (2) Acute kidney injury superimposed on chronic kidney disease Current Visit: Yes Status: Chronic Assessment and Plan: the patient has history of chronic kidney disease with a baseline creatinine around 1.3, today his creatinine is elevated Most likely secondary to volume depletion in the setting of decreased oral intake as well as underlying infectious process in the setting of urinary tract infection, we will continue with hydration, monitor renal panel continue to monitor I/Os and avoid nephrotoxic. Cr 1.74 down to 1.41 (3) Pneumomediastinum Current Visit: Yes Status: Acute Assessment and Plan: cardio-thoracic surgeon was consulted and they saw the patient in consult. (4) History of myocardial infarction Current Visit: Yes Status: Acute Assessment and Plan: the patient has history of myocardial infarction 2, today he's complaining of typical chest pain, EKG was no significant ST-T wave changes and troponin within normal limits. Pt denies chest pain at this time. Will trend troponin. Repeat EKG PRN (5) Spina bifida Current Visit: No Status: Chronic Assessment and Plan: Pt states complications related to this led to his hx of CKD DVT Prophylaxis: SCD - Summary of Assessment and Plan Summary of Assessment and Plan: History of present illness: Dr. Stern Mr. James is a 27 year old male with PMH of spina bifida , CKD, 2 MIs with no stenting or CABG. and urinary tract infections complaining of bilateral flank pain for the past 3 weeks. the patient denies fever or chills, but he endorse de creased appetite, nausea no vomiting, left chest pain radiating to all around her chest, she denied abdominal pain more on the suprapubic area. The patient also stated that he been having dental abscesses that it was treated as an outpatient by antibiotic and he schedule for follow-up as an outpatient. The patient and manage his study with evidence for pneumomediastinum. cardiothoracic surgery was consulted and they'll see the patient in consult in a.m. The patient was starting in a medical antibiotic with Rocephin and admitted to the hospital for further evaluation and management. - Time Spent with Patient Total time spent is greater than 50% in coordination of care (as documented) at patient's floor/unit and/or counseling patient: less than 15 minutes Plan of Care Discussed with: patient Internal Medicine: Result - Labs CBC & Chem 7: 09/01/18 06:31 09/01/18 06:31 Labs: Short CBC 09/01/18 Range/Units 06:31 WBC 6.0 (4.3-11.1) K/mcL Hgb 13.1 D (12.9-16.9) g/dL Hct 41.5 (37.5-50.1) % Plt Count 254 (140-400) K/mcL Neutrophils # 2.5 (1.6-8.9) K/mcL BMP 09/01/18 06:31 Sodium 139 Potassium 4.0 Chloride 104 Carbon Dioxide 25 BUN 19 Creatinine 1.41 H Glucose 76 Calcium 9.2 Liver Function 09/01/18 Range/Units 06:31 Total Bilirubin 1.7 H (0.3-1.0) mg/dL AST 20 (13-39) Units/L ALT 16 (7-52) Units/L Alkaline Phosphatase 63 (34-104) Units/L Albumin 4.3 (3.5-5.7) g/dL - ABG Interpretation ABG results: PT/INR, D-dimer PT 12.5 Seconds (9.4-12.1) H 09/01/18 06:31 1426 ng/mLFEU (0-500) H 08/31/18 08:10 Consult Discharge Plan - Plan Referrals: Alina Montague, NETWORK LEAD [Primary Care Provider] - (5) Spina bifida Qualifiers: Spinal region: unspecified Presence of hydrocephalus: without hydrocephalus Qualified Code(s): Q05.9 - Spina bifida, unspecified
[2018-09-02] MEDS: Ondansetron 4 MG/2 ML VIAL IVP PRN ×2 (01:24→09:48)
[2018-09-02] MEDS: cefTRIAXone 2,000 MG in Water for inj. (sterile) 20 ML IVP SCH (08:08)
[2018-09-02] MEDS: *HR* HYDROcodone/Acet 5/325 mg TABLET PO PRN (08:08)
--- NOTE | 2018-09-02 08:20 | Internal Med Progress Note ---
Hospitalist Progress Note - Encounter Date of Encounter: 09/02/18 Time of Encounter: 12:00 - Subjective Interval History: No acute events overnight - Exam Vitals: Temp Pulse Resp BP Pulse Ox 98.4 F 78 15 116/80 97 09/02/18 06:37 09/02/18 06:37 09/02/18 06:37 09/02/18 06:37 09/02/18 06:37 Exam: General appearance: Present: A&O X 3 Head exam: Present: atraumatic, normocephalic Neck exam general surgery: Present: supple, trachea midline. Absent: lymphadenopathy Respiratory exam: Present: CTAB. Absent: accessory muscle use, rales, rhonchi, wheezes Cardiovascular exam: Present: RRR, +S1, +S2. Absent: diastolic murmur, gallop, rubs, systolic murmur GI/Abdominal exam: Present: normal bowel sounds, soft, no peritoneal signs. Absent: distended, tenderness Extremities exam: Present: warm, radial pulses palpable and symmetrical. Absent: calf tenderness, cyanotic, pedal edema. Psych: Mood and affect normal. Skin: warm and dry. + tattoos - Assessment and Plan (1) Acute cystitis without hematuria Current Visit: Yes Status: Acute Assessment and Plan: Came in with bilateral flank pain secondary to UTI Urine cultures growing Gram negative rods. Continue ceftriaxone. Follow sensitivities (2) Pneumomediastinum Current Visit: Yes Status: Acute Assessment and Plan: Seen by CT surgery. No acute surgical intervention (3) Spina bifida Current Visit: Yes Status: Chronic Assessment and Plan: Pt states complications related to this led to his hx of CKD (4) Acute kidney injury superimposed on chronic kidney disease Current Visit: Yes Status: Chronic Assessment and Plan: the patient has history of chronic kidney disease stage 2 with a baseline creatinine around 1.3, today his creatinine is elevated Most likely secondary to volume depletion in the setting of decreased oral intake as well as underlying infectious process in the setting of urinary tract infection Improved with IV fluid hydration DVT Prophylaxis: Heparin sc - Time Spent with Patient Total time spent is greater than 50% in coordination of care (as documented) at patient's floor/unit and/or counseling patient: Internal Medicine: Result - Labs CBC & Chem 7: 09/01/18 06:31 09/01/18 06:31 Labs: Cardiac Enzymes 09/01/18 09/01/18 Range/Units 15:43 20:55 Troponin I < 0.03 < 0.03 (< 0.04) ng/mL - ABG Interpretation ABG results: PT/INR, D-dimer PT 12.5 Seconds (9.4-12.1) H 09/01/18 06:31 1426 ng/mLFEU (0-500) H 08/31/18 08:10 Consult Discharge Plan - Plan Referrals: Alina Montague, [employer]ING [employer]ICER [Primary Care Provider] - ___ (3) Spina bifida Qualifiers: Spinal region: unspecified Presence of hydrocephalus: without hydrocephalus Qualified Code(s): Q05.9 - Spina bifida, unspecified
[2018-09-02] MEDS: 0.9 % Sodium Chloride 1,000 ML IVC SCH ×2 (10:59→20:13)
[2018-09-02] MEDS: Gabapentin 300 MG CAPSULE PO SCH ×2 (15:16→20:13)
[2018-09-02] MEDS: *HR* Promethazine 25 MG/ML VIAL IVP PRN (17:43)
[2018-09-02] MEDS: *HR* Heparin 5,000 UNIT/ML VIAL SQ SCH (17:55)
[2018-09-03 05:26] LABS: Basophils % 0.5 %; Eosinophils # 0.1 K/mcL (0.0-0.6); Eosinophils % 2.5 %; Hematocrit 41.5 % (37.5-50.1); Hemoglobin 13.1 g/dL (12.9-16.9); Immature Granulocytes % 0.2 % (0-4); Lymphocytes # 2.3 K/mcL (0.6-4.6); Lymphocytes % 53.6 %; Mean Corpuscular HGB Conc 31.6 g/dL (31.6-35.5); Mean Corpuscular Hemoglobin 28.7 pg (28.0-33.3); Mean Platelet Volume 9.2 fL (9.4-12.4); Monocytes # 0.3 K/mcL (0.0-1.3); Monocytes % 6.7 %; Neutrophils # 1.6 K/mcL (1.6-8.9); Platelet Count 275 K/mcL (140-400); Red Blood Count 4.56 M/mcL (4.19-5.50); Red Cell Distribution Width 11.9 % (11.5-14.5); Segmented Neutrophils % 36.5 %; White Blood Count 4.4 K/mcL (4.3-11.1)
[2018-09-03 05:45] LABS: BUN/Creatinine Ratio 8 (6-26); Blood Urea Nitrogen 11 mg/dL (6-20); Calcium 9.1 mg/dL (8.6-10.3); Carbon Dioxide 28 mEq/L (23-29); Chloride 106 mEq/L (98-107); Glucose 133 mg/dL (70-105); Magnesium 2.1 mg/dL (1.6-2.6); Osmolality,Calculated 297 (280-300); Phosphorous 5.2 mg/dL (2.7-4.5); Potassium 4.2 mEq/L (3.5-5.1); Sodium 143 mEq/L (136-145); eGFR For African Americans > 60 (> 60); eGFR For Non-African Americans > 60 (> 60)
[2018-09-03] MEDS: *HR* Heparin 5,000 UNIT/ML VIAL SQ SCH (05:50)
[2018-09-03] MEDS: 0.9 % Sodium Chloride 1,000 ML IVC SCH (06:25)
[2018-09-03] MEDS: *HR* HYDROcodone/Acet 5/325 mg TABLET PO PRN (06:26)
[2018-09-03] MEDS: *HR* Promethazine 25 MG/ML VIAL IVP PRN (06:26)
[2018-09-03 06:46] VITALS: BP 102/68
[2018-09-03] MEDS ORDERED: cefTRIAXone 1,000 MG in Water for inj. (sterile) 10 ML IVP SCH (09:00)
[2018-09-03] MEDS: Gabapentin 300 MG CAPSULE PO SCH (09:03)
--- NOTE | 2018-09-03 09:59 | Discharge Summary ---
Date of Encounter: 09/03/18 Time of Encounter: 09:30 - Discharge Diagnosis (1) Acute cystitis without hematuria Priority: Primary Status: Acute Assessment and Plan: 27 year old male with PMH of spina bifida , CKD, 2 MIs with no stenting or CABG. and urinary tract infections complaining of bilateral flank pain for the past 3 weeks. The patient denies fever or chills, but he endorsed decreased appetite, nausea no vomiting, left chest pain radiating to all around her chest and suprapubic pain He was assessed with bilateral flank pain secondary to UTI. His urine cultures came back growing gram negative rods. He improved on ceftriaxone and was transitioned to cefdinir on discharge. Sensitivities are pending but he has no majr risk factor for MDRO. Has been counseled to return to the ER if there are worsening symptoms. Also instructed to leave his phone nuber incase sensitivities come back with drug resistant bacteria He also had a pneumomediastinuma and was seen by CT surgery who recommended no acute surgical intervention. 35 minutes was spent discharging this patient (2) Pneumomediastinum Priority: Primary Status: Acute (3) Spina bifida Priority: Primary Status: Chronic Qualifiers: Spinal region: unspecified Presence of hydrocephalus: without hydrocephalus Qualified Code(s): Q05.9 - Spina bifida, unspecified (4) Acute kidney injury superimposed on chronic kidney disease Priority: Primary Status: Chronic Hospital course: Mr. James is a 27 year old male - Time Spent with Patient Total time spent providing and/or coordinating discharge services: - Discharge Medications Prescriptions: New Cefdinir [Omnicef] 300 mg PO BID 5 Days #10 capsule Continued Gabapentin 800 mg PO TID Home Medications: Gabapentin 800 mg PO TID 09/01/18 [History] Cefdinir [Omnicef] 300 mg PO BID 5 Days #10 capsule 09/03/18 [Rx] Allergies/Adverse Reactions: Allergy/AdvReac Type Severity Reaction Status Date / Time latex Allergy Rash Verified 05/19/18 18:35 Penicillins [PCN] Allergy See Verified 09/01/18 18:20 Comments Date of admission: 08/31/18 12:03 Primary care physician: Alina Montague CNP Consults: 08/31/18 11:54 Consult to Cardiothoracic Surgery [CONS] Stat Consulting Provider: Cardiothoracic Surgery Maxine Reason for Consult: pneumomediatinum Call Completed: Yes - Constitutional Vitals: Temp Pulse Resp BP Pulse Ox 97.9 F 60 16 102/68 100 09/03/18 06:44 09/03/18 06:44 09/03/18 06:44 09/03/18 06:44 09/03/18 06:44 General appearance: Present: A&O X 3 Exam: General appearance: Present: A&O X 3 Head exam: Present: atraumatic, normocephalic Neck exam general surgery: Present: supple, trachea midline. Absent: lymphadeno magaly Respiratory exam: Present: CTAB. Absent: accessory muscle use, rales, rhonchi, wheezes Cardiovascular exam: Present: RRR, +S1, +S2. Absent: diastolic murmur, gallop, rubs, systolic murmur GI/Abdominal exam: Present: normal bowel sounds, soft, no peritoneal signs. Absent: distended, tenderness Extremities exam: Present: warm, radial pulses palpable and symmetrical. Absent: calf tenderness, cyanotic, pedal edema. Psych: Mood and affect normal. Skin: warm and dry. + tattoos - Patient Status Disposition: Home, Self-Care Condition: Good - Discharge Instructions Instructions: Urinary Tract Infection in Men (DC) Follow Up With: Alina Montague CNP [Primary Care Provider] - 09/04/18 12:00 pm
--- NOTE | 2018-09-03 11:45 | Electrocardiograph Report ---
[facility] Test Date: 2018-08-31 Pat Name: Rosalino James Department: [id number] Room: 3A36 Gender: M Engineer Conductor: : 1990 Requested By: Alysa Murrieta Order Number: [id number] Reading MD: Johnny Palacio Measurements Intervals [place] Rate: 82 P: 74 [place]: 139 QRS: 83 QRSD: 78 T: 52 QT: 337 QTc: 394 Interpretive Statements Sinus rhythm Electronically Signed On 09-03-2018 11:43:59 EDT by Johnny Palacio
== END 2018-09-03 10:54 | disposition home or self-care (01) ==
LOC: 3ANU 06:37 → EMEROOARM 06:37 → 3ANU 12:13
PROVIDERS: ADMIT Internal Medicine Nephrology; ATTEND Internal Medicine Nephrology